=== PATIENT | female | born 1935 | race Caucasian/White ===

== ENCOUNTER → 2016-10-20 | Outpatient (CLI) | payer OTHER ==
[~2016-10-20] MED LIST: ASPEC81 PO; CALC500C70 PO; CALCTAB5 PO; CHOL20007 PO; CZR25 PO; DILT120C99 PO; DLCSR120 PO; FLUT1AER5 INH; IBAN150T PO; LOSA1TAB PO; METH-589 PO; MGNO400 PO; NEPA0.6D OPL; NRV/5 PO; OMEG10007 PO; PRED1SUS OPL; PRT40 PO; QVRINH40 INH; VITAMIN D PO
== END | disposition home or self-care (01) ==
LOC: C.MAMM 10:50
PROVIDERS: ATTEND Internal Medicine
DX: M81.0 Age-related osteoporosis without current pathological fracture (principal); M85.851 Other specified disorders of bone density and structure, right thigh; M85.852 Other specified disorders of bone density and structure, left thigh

== ENCOUNTER → 2016-12-10 | Outpatient (CLI) | payer OTHER ==
[2016-12-10 12:28] LABS: BASO % 1.1 %; BASO ABS # 0.04 K/uL (0-0.2); COMPLETE YES; EOS % 2.5 %; HEMATOCRIT 40.1 % (37-47); LYMPH % 33.9 %; LYMPH ABS # 1.24 K/uL (1.2-3.4); MEAN CELL VOLUME 98.5 fL (80-100); MEAN CORPUSCULAR HEMOGLOBIN 31.9 pg (25-34); MEAN CORPUSCULAR HGB CONC 32.4 g/dl (32-36); MEAN PLATELET VOLUME 11.1 fL (7.4-10.4); MONO % 8.2 %; NEUT % 54.3 %; PLATELET COUNT 187 K/uL (130-400); RED BLOOD COUNT 4.07 M/uL (4.2-5.4); WHITE BLOOD COUNT 3.66 K/uL (4.8-10.8)
[2016-12-10 12:43] LABS: BLOOD UREA NITROGEN 22 mg/dl (7-18); CALCIUM 9.9 mg/dl (8.5-10.1); CARBON DIOXIDE 31 mmol/L (21-32); CHLORIDE 106 mmol/L (98-107); CHOLESTEROL 183 mg/dl (0-200); GLUCOSE 88 mg/dl (70-99); MAGNESIUM 2.2 mg/dl (1.8-2.4); POTASSIUM 4.4 mmol/L (3.5-5.1); SODIUM 142 mmol/L (136-145)
[2016-12-10 12:55] LABS: CHOLESTEROL/HDL RATIO 1.7; HDL CHOLESTEROL 110 mg/dl; LDL CHOLESTEROL CALCULATED 64 mg/dl; TRIGLYCERIDES 47 mg/dl (0-150); VERY LOW DENSITY LIPOPROT CALC 9 mg/dl
== END | disposition home or self-care (01) ==
LOC: C.LAB1850 10:18
PROVIDERS: ATTEND Internal Medicine
DX: E05.90 Thyrotoxicosis, unspecified without thyrotoxic crisis or storm (principal); E83.42 Hypomagnesemia; D72.819 Decreased white blood cell count, unspecified; I10 Essential (primary) hypertension; I48.91 Unspecified atrial fibrillation

== ENCOUNTER → 2017-01-21 | Outpatient (CLI) | payer OTHER ==
--- NOTE | 2017-01-21 15:47 | MAMMOGRAPHY REPORT ---
BILATERAL DIGITAL SCREENING MAMMOGRAM WITH CAD: 01/21/2017 CLINICAL HISTORY: Routine screening. Patient has no complaints. TECHNIQUE: Bilateral CC and MLO views were obtained. Current study was also evaluated with a Comput er Aided Detection (CAD) system. COMPARISON: Comparison is made to exams dated: 01/18/2016 mammogram, 01/16/2015 mammogram, 01/13/2014 mammogram, 01/12/2013 mammogram, 01/01/2012 mammogram, and 12/31/2010 mammogram - [facility]. BREAST COMPOSITION: The tissue of both breasts is heterogeneously dense, which may obscure small ma sses. FINDINGS: There are mild to moderate vascular calcifications in the breasts. A few scattered benign round and rim calcifications. No suspicious mass, architectural distortion or cluster of microcalc ifications is seen. IMPRESSION: ACR BI-RADS CATEGORY 1: NEGATIVE There is no mammographic evidence of malignancy. A 1 year screening mammogram is recommended. The p atient will receive written notification of the results. Approximately 10% of breast cancers are not detected with mammography. A negative mammographic repor t should not delay biopsy if a clinically suggestive mass is present. Johanna Chatman M.D. ay/:01/21/2017 13:49:34 Baby Stroller Rental Clerk: Eleanor PUGH(R)(M), [facility] letter sent: Normal 1/2 BI-RADS Code: ACR BI-RADS Category 1: Negative
== END | disposition home or self-care (01) ==
LOC: C.MAMM 11:47
PROVIDERS: ATTEND Internal Medicine
DX: Z12.31 Encounter for screening mammogram for malignant neoplasm of breast (principal)

== ENCOUNTER → 2017-02-16 | Day surgery (SDC) | payer OTHER ==
[2017-02-09 14:06] VITALS: Ht 172.7 cm; Wt 65.0 kg
[~2017-02-16] VITALS: Ht 172.7 cm; Wt 65.0 kg
[~2017-02-16] MED LIST changes: +500ML BSS 0.3ML EPI 1:1000PF IRRIG ONE; +ACETAMINOPHEN 325 MG TAB PO PRN; +AMVISC PLUS 0.8ML SYRINGE INT OCU ONE; +ATROPINE SULFATE 0.1 MG/ML 5ML SYR IV PRN; +BRIMONIDINE TART 0.2% OP SOLN PER DROP CHARGE ONE; +BSS FLUSH ONE; -CALCTAB5 PO; -CHOL20007 PO; -CZR25 PO; -DLCSR120 PO; +ENDOCOAT 0.85ML SYRINGE INT OCU ONE; +EpHEDrine SULFATE INJ 50 MG/ML AMP IV PRN; +EpINEphrine INJ 1MG/ML AMP 1 MG/ML AMP ONE; +LACTATED RINGER'S 1000ML 500 ML IV SCH; +LIDOCAINE 4% OP SOLN DROP CHARGE ONE; +LIDOCAINE 4% OP SOLN DROP CHARGE OPL SCH; +LIDOCAINE HCL 1% MPF 2 ML VIAL ONE; -MGNO400 PO; +MIDAZOLAM HCL 1 MG/ML 2ML VIAL ONE; +MOXIFLOXACIN OPH SOLN PER DROP CHARGE ONE; +MOXIFLOXACIN OPH SOLN PER DROP CHARGE OPL SCH; -NRV/5 PO; +POVIDONE-IODINE OP SOLN 30 ML BTL ONE; +PROPARACAINE 0.5% OP SOLN PER DROP CHARGE OPL SCH; +PROPARACAINE HCL 0.5% OP SOLN 15 ML BTL OPL ONE; -PRT40 PO; -QVRINH40 INH; +TOBRAMYCIN/DEXAMETHASONE OPH OINT PER APPLN CHARGE ONE
[2017-02-16] MEDS: PHENYLEPHRINE HCL 2.5% OP SOLN PER DROP CHARGE OPL SCH ×2 (09:20→09:25)
[2017-02-16] MEDS: TROPICAMIDE 1% OP SOLN PER DROP CHARGE OPL SCH ×2 (09:21→09:26)
[2017-02-16] MEDS: CYCLOPENTOLATE HCL 1% OP SOLN PER DROP CHARGE OPL SCH ×2 (09:22→09:27)
[2017-02-16] MEDS: KETOROLAC 0.5% OP SOLN PER DROP CHARGE OPL SCH ×2 (09:23→09:28)
--- NOTE | 2017-02-16 09:40 | History & Physical Bridge - [place] ---
H&P Re-Evaluation Bridge Note: I have examined the patient, reviewed the History & Physical and in the interval since the performance of the History & Physical I have noted the following changes of clinical significance: No changes noted
--- NOTE | 2017-02-16 10:44 | Discharge Instructions-SurgCtr ---
Discharge Instructions Date of Service Feb 16, 2017. Visit Reason for Visit: Cataract Left Eye Discharge Discharge Diagnosis / Problem: cataract left eye Discharge Goals Goal(s): Improve function Activity Recommendations Activity Limitations: per Instructions/Follow-up section Lifting Limitations: no more than 5 pounds Anesthesia . Post Anesthesia Instructions: If you have had General Anesthesia or IV Sedation: * Do not drive today. * Resume driving when surgeon permits. * Do not make important decisions or sign legal documents today. * Call surgeon for: 1. Temperature elevations greater than 101 degrees F. 2. Uncontrollable pain. 3. Excessive bleeding. 4. Persistent nausea and vomiting. 5. Medication intolerance (nausea, vomiting or rash). * For nausea and vomiting use only clear liquids such as: tea, soda, bouillon until nausea subsides, then gradually increase diet as tolerated. * If you have any concerns or questions, call your surgeon's office. If physician is unavailable and it is an emergency, call 911 or go to the nearest emergency room. . Instructions / Follow-Up Instructions / Follow-Up ACTIVITY RECOMMENDATIONS: * Light activities * You may walk outside or watch television, No Reading today. * No bending over or heavy lifting * Mild irritation and blurred vision are common for the first few days, redness around the white part of the eye is common. MEDICATIONS: Resume previous medications unless instructed otherwise by your surgeon. Eye drops (today and tomorrow): Polytrim - one drop in operative eye every 2 hours while awake Prednisolone 1% - one drop in operative eye every 2 hours while awake Ilevro - one drop operative eye 1 times daily SPECIAL CARE INSTRUCTIONS: * If any problems or concerns, please call Dr. Miller's office at . * Keep plastic shield taped over eye to sleep at night. * Keep plastic shield taped over eye except to administer eye drops. * Keep plastic shield on until office visit the following day. FOLLOW UP VISIT: Follow-up with Dr. Miller in the [place] office as scheduled. If not already scheduled, please call the office at . Diet Recommendations Home Diet: resume previous diet Procedures Procedures Performed: Left Cataract Phacoemulsification With Intraocular Lens Implant; Toric Lens Pending Studies Studies pending at discharge: no Medical Emergencies . Who to Call and When: Medical Emergencies: If at any time you feel your situation is an emergency, please call 911 immediately. . Non-Emergent Contact Non-Emergency issues call your: Financial Reporting Advisor . . "Provider Documentation" section prepared by Bryson Miller. .
--- NOTE | 2017-02-16 10:44 | [facility] Post Operative Brief Note ---
Immediate Operative Summary Operative Date Feb 16, 2017. Pre-Operative Diagnosis Left Eye Cataract Post-Operative Diagnosis Same Procedure(s) Performed Left Cataract Phacoemulsification With Intraocular Lens Implant; Toric Lens Surgeon Dr Miller Stereo Equipment Installer Surgeon(s) None Estimated Blood Loss 0ml Findings cataract left eye Specimens None Complication(s) None Disposition Recovery Room / PACU
[2017-02-16 10:45] VITALS: TEMP 36.7
--- NOTE | 2017-02-16 11:08 | OPERATIVE REPORT ---
DATE OF OPERATION: 02/16/2017 PREOPERATIVE DIAGNOSIS: Cataract and astigmatism, left eye. POSTOPERATIVE DIAGNOSIS: Same. PROCEDURE PERFORMED: Phacoemulsification cataract extraction with Toric intraocular lens placement with the use of femtosecond laser, left eye. SURGEON: Dr. Miller. COMPLICATIONS: None. ESTIMATED BLOOD LOSS: None. ANESTHESIA: Local with sedation. OPERATION AND FINDINGS: BEGIN OF OPERATIVE REPORT: After informed consent was obtained in the holding area, the patient was first taken to the femtosecond laser room. The patient's left eye was docked with the laser and the laser was used to make the primary incision as well as the capsulorrhexis and prechop of the lens in the left eye. Once this was completed, the patient was taken to the operating room where cardiac monitoring leads and oxygen by nasal cannula was administered by anesthesia. Gentle IV sedation was given, the patient's left eye was prepped and draped in usual sterile fashion. A wire lid speculum was placed in the left eye and the operating microscope swung into position. Using 0.12 forceps and a supersharp blade, a paracentesis port was made at the 5 o'clock position of patient's left eye. 1% nonpreserved lidocaine was injected into the anterior chamber for anesthesia. EndoCoat was then injected into the anterior chamber. The primary incision was attempted to be entered using a Matthew spatula but was unable to so a 2.2 mm keratome blade was used to enter the primary incision at the 3 o'clock position in the patient's left eye. Amvisc was then injected underneath the EndoCoat in a soft shell fashion and the free floating capsulorrhexis cap was removed with the Utrata forceps. BSS and hydrodissection cannula was then used to hydrodissect the lens nucleus away from the capsular bag. The phacoemulsification handpiece was then used in a stop and chop fashion to remove the lens nucleus. Irrigation aspiration handpiece was then used to remove the residual cortical material. The eye was then filled with Amvisc and an NIHARIKA [id number] 18.0 Diopter intraocular lens was injected into the capsular bag. The primary incision was then hydrated and the irrigation-aspiration handpiece was used to remove the viscoelastic material from the eye. At the conclusion of viscoelastic removal, the lens was aligned with previously made markings on the corneal surface in the preop along with the 177 degree axis of the patient's left eye. The wounds were noted to be watertight. The wire lid speculum was removed from the eye. Polytrim, brimonidine and TobraDex ointment were placed on the eye and the eye was shielded. The patient tolerated the procedure well and was taken to recovery area in stable condition. I attest to the content of the Intraoperative Record and any orders documented therein. Any exception s are noted below.
--- NOTE | 2017-02-16 11:08 | Anesthesia Progress Nt - [facility] ---
Anesthesia Post Op Note Date & Time Feb 16, 2017 at 11:08 Vital Signs Pain Intensity: 0 Vital Signs Past 12 Hours Date Time Temp Pulse Resp B/P (MAP) Pulse Ox O2 Delivery O2 Flow Rate FiO2 02/16/17 10:45 36.7 56 16 152/67 (95) 98 Room Air 02/16/17 10:12 62 16 157/74 96 Room Air 02/16/17 10:10 67 16 167/71 96 Room Air 02/16/17 09:12 37.1 59 20 143/76 (98) 97 Room Air Notes Mental Status: alert / awake / arousable, participated in evaluation Pt Amnestic to Procedure: Yes Nausea / Vomiting: adequately controlled Pain: adequately controlled Airway Patency, RR, SpO2: stable & adequate BP & HR: stable & adequate Hydration State: stable & adequate Anesthetic Complications: no major complications apparent
[2017-02-16 11:09] VITALS: BP 136/64; PULSE 55; O2SAT 95
== END | disposition home or self-care (01) ==
LOC: X.SURG 08:28
PROVIDERS: ATTEND Ophthalmology
DX: H26.9 Unspecified cataract (principal); H52.202 Unspecified astigmatism, left eye; J45.909 Unspecified asthma, uncomplicated; I10 Essential (primary) hypertension; Z88.2 Allergy status to sulfonamides; Z88.5 Allergy status to narcotic agent; Z90.89 Acquired absence of other organs

== ENCOUNTER → 2017-03-12 | Outpatient (CLI) | payer OTHER ==
[~2017-03-12] MED LIST changes: -500ML BSS 0.3ML EPI 1:1000PF IRRIG ONE; -ACETAMINOPHEN 325 MG TAB PO PRN; -AMVISC PLUS 0.8ML SYRINGE INT OCU ONE; -ATROPINE SULFATE 0.1 MG/ML 5ML SYR IV PRN; -BRIMONIDINE TART 0.2% OP SOLN PER DROP CHARGE ONE; -BSS FLUSH ONE; -ENDOCOAT 0.85ML SYRINGE INT OCU ONE; -EpHEDrine SULFATE INJ 50 MG/ML AMP IV PRN; -EpINEphrine INJ 1MG/ML AMP 1 MG/ML AMP ONE; -LACTATED RINGER'S 1000ML 500 ML IV SCH; -LIDOCAINE 4% OP SOLN DROP CHARGE ONE; -LIDOCAINE 4% OP SOLN DROP CHARGE OPL SCH; -LIDOCAINE HCL 1% MPF 2 ML VIAL ONE; -MIDAZOLAM HCL 1 MG/ML 2ML VIAL ONE; -MOXIFLOXACIN OPH SOLN PER DROP CHARGE ONE; -MOXIFLOXACIN OPH SOLN PER DROP CHARGE OPL SCH; -POVIDONE-IODINE OP SOLN 30 ML BTL ONE; -PROPARACAINE 0.5% OP SOLN PER DROP CHARGE OPL SCH; -PROPARACAINE HCL 0.5% OP SOLN 15 ML BTL OPL ONE; -TOBRAMYCIN/DEXAMETHASONE OPH OINT PER APPLN CHARGE ONE
[2017-03-12 15:09] LABS: THYROID STIMULATING HORMONE 1.33 uIu/ml (0.300-4.500)
== END | disposition home or self-care (01) ==
LOC: C.LAB1850 13:23
PROVIDERS: ATTEND Physician Assistant
DX: E05.90 Thyrotoxicosis, unspecified without thyrotoxic crisis or storm (principal)

== ENCOUNTER → 2017-03-23 | Day surgery (SDC) | payer OTHER ==
[2017-03-02 13:21] VITALS: Ht 172.7 cm; Wt 65.0 kg
[~2017-03-23] VITALS: Ht 172.7 cm; Wt 65.0 kg
[~2017-03-23] MED LIST changes: +500ML BSS 0.3ML EPI 1:1000PF IRRIG ONE; +ACETAMINOPHEN 325 MG TAB PO PRN; +AMVISC PLUS 0.8ML SYRINGE INT OCU ONE; +ATROPINE SULFATE 0.1 MG/ML 5ML SYR IV PRN; +BRIMONIDINE TART 0.2% OP SOLN PER DROP CHARGE ONE; +BSS FLUSH ONE; +ENDOCOAT 0.85ML SYRINGE INT OCU ONE; +EpHEDrine SULFATE INJ 50 MG/ML AMP IV PRN; +EpINEphrine INJ 1MG/ML AMP 1 MG/ML AMP ONE; +LACTATED RINGER'S 1000ML 500 ML IV SCH; +LIDOCAINE 4% OP SOLN DROP CHARGE ONE; +LIDOCAINE 4% OP SOLN DROP CHARGE OPR SCH; +LIDOCAINE HCL 1% MPF 2 ML VIAL ONE; +MIDAZOLAM HCL 1 MG/ML 2ML VIAL ONE; +MOXIFLOXACIN OPH SOLN PER DROP CHARGE ONE; +ONDANSETRON INJ 2 MG/ML 2 ML VIAL IV PRN; +POVIDONE-IODINE OP SOLN 30 ML BTL ONE; +PROPARACAINE 0.5% OP SOLN PER DROP CHARGE OPR SCH; +PROPARACAINE HCL 0.5% OP SOLN 15 ML BTL OPR ONE; +TOBRAMYCIN/DEXAMETHASONE OPH OINT PER APPLN CHARGE ONE
[2017-03-23] MEDS: PHENYLEPHRINE HCL 2.5% OP SOLN PER DROP CHARGE OPR SCH ×2 (10:09→10:18)
[2017-03-23] MEDS: TROPICAMIDE 1% OP SOLN PER DROP CHARGE OPR SCH ×2 (10:10→10:25)
[2017-03-23] MEDS: CYCLOPENTOLATE HCL 1% OP SOLN PER DROP CHARGE OPR SCH ×2 (10:12→10:27)
[2017-03-23] MEDS: KETOROLAC 0.5% OP SOLN PER DROP CHARGE OPR SCH ×2 (10:13→10:29)
[2017-03-23] MEDS: TRIMETHOPRIM/POLYMYXIN B OPR SCH ×2 (10:16→10:31)
[2017-03-23 11:31] VITALS: TEMP 36.6
--- NOTE | 2017-03-23 11:31 | Discharge Instructions-SurgCtr ---
Discharge Instructions Date of Service Mar 23, 2017. Visit Reason for Visit: Right Cataract Discharge Discharge Diagnosis / Problem: cataract right eye Discharge Goals Goal(s): Improve function Activity Recommendations Activity Limitations: per Instructions/Follow-up section Lifting Limitations: no more than 5 pounds Anesthesia . Post Anesthesia Instructions: If you have had General Anesthesia or IV Sedation: * Do not drive today. * Resume driving when surgeon permits. * Do not make important decisions or sign legal documents today. * Call surgeon for: 1. Temperature elevations greater than 101 degrees F. 2. Uncontrollable pain. 3. Excessive bleeding. 4. Persistent nausea and vomiting. 5. Medication intolerance (nausea, vomiting or rash). * For nausea and vomiting use only clear liquids such as: tea, soda, bouillon until nausea subsides, then gradually increase diet as tolerated. * If you have any concerns or questions, call your surgeon's office. If physician is unavailable and it is an emergency, call 911 or go to the nearest emergency room. . Instructions / Follow-Up Instructions / Follow-Up ACTIVITY RECOMMENDATIONS: * Light activities * You may walk outside, read, watch television. * Mild irritation and blurred vision are common for the first few days, redness around the white part of the eye is common. MEDICATIONS: Resume previous medications unless instructed otherwise by your surgeon. Eye drops (today and tomorrow): Polytrim - one drop in operative eye every 2 hours while awake Prednisolone 1% - one drop in operative eye every 2 hours while awake Ilevro - one drop operative eye 1 times daily SPECIAL CARE INSTRUCTIONS: * If any problems or concerns, please call Dr. Miller's office at . * Keep plastic shield taped over eye to sleep at night. * Keep plastic shield taped over eye except to administer eye drops. * Keep plastic shield on until office visit the following day. FOLLOW UP VISIT: Follow-up with Dr. Miller in the [place] office as scheduled. If not already scheduled, please call the office at . Diet Recommendations Home Diet: resume previous diet Procedures Procedures Performed: Right Eye Cataract Phacoemulsification With Intraocular Lens Implant Pending Studies Studies pending at discharge: no Medical Emergencies . Who to Call and When: Medical Emergencies: If at any time you feel your situation is an emergency, please call 911 immediately. . Non-Emergent Contact Non-Emergency issues call your: Line Department Supervisor . . "Provider Documentation" section prepared by Bryson Miller. .
--- NOTE | 2017-03-23 11:32 | [facility] Post Operative Brief Note ---
Immediate Operative Summary Operative Date Mar 23, 2017. Pre-Operative Diagnosis Right Eye Cataract Post-Operative Diagnosis Same Procedure(s) Performed Right Eye Cataract Phacoemulsification With Intraocular Lens Implant Surgeon Dr. Miller Salvage Mend Worker Surgeon(s) None Estimated Blood Loss None Findings cataract right eye Specimens None Drains none Anesthesia local with sedation Complication(s) None Disposition Recovery Room / PACU
[2017-03-23 11:52] VITALS: BP 128/61; PULSE 58; O2SAT 98
--- NOTE | 2017-03-23 11:54 | Anesthesiology Progress Note ---
Anesthesia Post Op Note Date & Time Mar 23, 2017 at 11:54 Vital Signs Pain Intensity: 0 Vital Signs Past 12 Hours Date Time Temp Pulse Resp B/P (MAP) Pulse Ox O2 Delivery O2 Flow Rate FiO2 03/23/17 11:31 36.6 56 18 145/65 (91) 99 Room Air 03/23/17 11:02 66 18 149/66 94 03/23/17 10:58 63 18 157/66 96 03/23/17 09:44 37.0 62 18 138/71 (93) 97 Room Air Notes Mental Status: alert / awake / arousable, participated in evaluation Pt Amnestic to Procedure: Yes Nausea / Vomiting: adequately controlled Pain: adequately controlled Airway Patency, RR, SpO2: stable & adequate BP & HR: stable & adequate Hydration State: stable & adequate Anesthetic Complications: no major complications apparent
--- NOTE | 2017-03-23 13:54 | OPERATIVE REPORT ---
DATE OF OPERATION: 03/23/2017 PREOPERATIVE DIAGNOSES: Cataract and astigmatism, right eye. POSTOPERATIVE DIAGNOSES: Same. PROCEDURE PERFORMED: Phacoemulsification cataract extraction with Toric intraocular lens placement with the use of femtosecond laser, right eye. COMPLICATIONS: None. ESTIMATED BLOOD LOSS: None. ANESTHESIA: Local with sedation. DESCRIPTION OF PROCEDURE: After an informed consent was obtained in the holding area, the patient was taken to the femtosecond laser room, where the right eye was docked with a laser. Femtosecond laser was used to make the primary incision at the 9 o'clock position of the patient's right eye as well as make the capsulorrhexis and prechop of the lens. Once this was completed, the patient was taken back to the operating room, where cardiac monitoring leads and oxygen by nasal cannula was administered by anesthesia. Gentle IV sedation was given and the patient's right eye was prepped and draped in the usual sterile fashion. A wire lid speculum was placed in the right eye and the operating microscope swung into position. Using 0.12 forceps and a supersharp blade, a paracentesis port was made at the 11 o'clock position of the patient's right eye. 1% nonpreserved lidocaine was then injected into the anterior chamber for anesthesia. EndoCoat was then injected into the anterior chamber. The primary incision was then entered using a Matthew spatula and Amvisc was injected underneath the EndoCoat. A free floating capsulorrhexis cap was then removed from the eye and BSS on hydrodissection cannula was used to hydrodissect the lens nucleus away from the capsular bag. The phacoemulsification handpiece was then used in a stop and chop fashion to remove the lens nucleus. The irrigation-aspiration handpiece was then used to remove the residual cortical material. The eye was then filled with Amvisc and an NIHARIKA [id number], 18.0 Diopter intraocular lens was injected into the capsular bag. The primary incision was then hydrated and the irrigation-aspiration handpiece was used to remove the viscoelastic material from the eye. At the conclusion of viscoelastic material removal, the lens was left aligned along the 5-degree axis of the patient's right eye with markings made in preop. The wounds were noted to be watertight. The wire lid speculum was removed from the eye. Vigamox, brimonidine and TobraDex ointment were placed on the eye and the eye was shielded. The patient tolerated the procedure well and was taken to recovery area in stable condition. I attest to the content of the Intraoperative Record and any orders documented therein. Any exceptions are noted below. MTDD
== END | disposition home or self-care (01) ==
LOC: X.SURG 09:28
PROVIDERS: ATTEND Ophthalmology
DX: H25.11 Age-related nuclear cataract, right eye (principal); H52.201 Unspecified astigmatism, right eye; I10 Essential (primary) hypertension; J45.909 Unspecified asthma, uncomplicated; I48.91 Unspecified atrial fibrillation; Z90.89 Acquired absence of other organs; Z90.710 Acquired absence of both cervix and uterus; E03.9 Hypothyroidism, unspecified; Z98.42 Cataract extraction status, left eye; K21.9 Gastro-esophageal reflux disease without esophagitis; Z87.442 Personal history of urinary calculi

== ENCOUNTER → 2017-04-22 | Outpatient (CLI) | payer OTHER ==
[~2017-04-22] MED LIST changes: -500ML BSS 0.3ML EPI 1:1000PF IRRIG ONE; -ACETAMINOPHEN 325 MG TAB PO PRN; -AMVISC PLUS 0.8ML SYRINGE INT OCU ONE; -ATROPINE SULFATE 0.1 MG/ML 5ML SYR IV PRN; -BRIMONIDINE TART 0.2% OP SOLN PER DROP CHARGE ONE; -BSS FLUSH ONE; -ENDOCOAT 0.85ML SYRINGE INT OCU ONE; -EpHEDrine SULFATE INJ 50 MG/ML AMP IV PRN; -EpINEphrine INJ 1MG/ML AMP 1 MG/ML AMP ONE; -LACTATED RINGER'S 1000ML 500 ML IV SCH; -LIDOCAINE 4% OP SOLN DROP CHARGE ONE; -LIDOCAINE 4% OP SOLN DROP CHARGE OPR SCH; -LIDOCAINE HCL 1% MPF 2 ML VIAL ONE; -MIDAZOLAM HCL 1 MG/ML 2ML VIAL ONE; -MOXIFLOXACIN OPH SOLN PER DROP CHARGE ONE; -ONDANSETRON INJ 2 MG/ML 2 ML VIAL IV PRN; -POVIDONE-IODINE OP SOLN 30 ML BTL ONE; -PROPARACAINE 0.5% OP SOLN PER DROP CHARGE OPR SCH; -PROPARACAINE HCL 0.5% OP SOLN 15 ML BTL OPR ONE; -TOBRAMYCIN/DEXAMETHASONE OPH OINT PER APPLN CHARGE ONE
[2017-04-22 14:07] LABS: THYROID STIMULATING HORMONE 1.72 uIu/ml (0.300-4.500)
== END | disposition home or self-care (01) ==
LOC: C.LAB1850 12:12
PROVIDERS: ATTEND Physician Assistant
DX: E05.90 Thyrotoxicosis, unspecified without thyrotoxic crisis or storm (principal)

== ENCOUNTER → 2017-05-22 | Outpatient (CLI) | payer OTHER ==
[2017-05-22 17:00] LABS: THYROID STIMULATING HORMONE 2.09 uIu/ml (0.300-4.500)
== END | disposition home or self-care (01) ==
LOC: C.LAB1850 14:53
PROVIDERS: ATTEND Physician Assistant
DX: E05.90 Thyrotoxicosis, unspecified without thyrotoxic crisis or storm (principal)

== ENCOUNTER → 2017-08-28 | Outpatient (CLI) | payer OTHER ==
[~2017-08-28] MED LIST changes: +APIX1TAB3 PO; +ASPI-461 PO; +CHOL1000 PO; +CZR50 PO
[2017-08-28 09:35] LABS: HEMATOCRIT 41.1 % (37-47); HEMOGLOBIN 13.4 g/dL (12.0-16.0); MEAN CELL VOLUME 97.4 fL (80-100); MEAN CORPUSCULAR HEMOGLOBIN 31.8 pg (25-34); MEAN CORPUSCULAR HGB CONC 32.6 g/dl (32-36); MEAN PLATELET VOLUME 11.1 fL (7.4-10.4); PLATELET COUNT 173 K/uL (130-400); RED CELL DISTRIBUTION WIDTH CV 13.2 % (11.5-14.5); RED CELL DISTRIBUTION WIDTH SD 46.8 fL (36.4-46.3); WHITE BLOOD COUNT 3.29 K/uL (4.8-10.8)
[2017-08-28 10:29] LABS: BLOOD UREA NITROGEN 25 mg/dl (7-18); CALCIUM 9.7 mg/dl (8.5-10.1); CARBON DIOXIDE 30 mmol/L (21-32); CREATININE 0.98 mg/dl (0.60-1.20); GLUCOSE 84 mg/dl (70-99); SODIUM 140 mmol/L (136-145)
== END | disposition home or self-care (01) ==
LOC: C.LAB1850 08:37
PROVIDERS: ATTEND Physician Assistant
DX: J45.909 Unspecified asthma, uncomplicated (principal); I10 Essential (primary) hypertension; E05.90 Thyrotoxicosis, unspecified without thyrotoxic crisis or storm

== ENCOUNTER → 2017-09-07 | Outpatient (CLI) | payer OTHER ==
[~2017-09-07] MED LIST changes: -APIX1TAB3 PO; -ASPI-461 PO; -CHOL1000 PO; -CZR50 PO
--- NOTE | 2017-09-07 15:04 | DIAGNOSTIC IMAGING REPORT ---
TWO VIEW CHEST CLINICAL HISTORY: Cough. Asthma. FINDINGS: PA and lateral chest radiographs are compared to study dated 08/19/2015. Correlation is made with chest CT dated 10/25/2007. The heart is top normal for projection and there is atherosclerotic calcification of the thoracic aorta. The lungs appear hyperinflated and hyperlucent with flattening the diaphragm suggesting obstructive physiology. Chronic interstitial thickening is similar to previous. No airspace consolidation or pleural effusion is identified. There is no pneumothorax. The skeletal structures are osteopenic. The bony thorax appears intact. IMPRESSION: Findings suggest obstructive physiology. No airspace consolidation or pleural effusion is identified. Electronically signed by: Shaji Marcos M.D. 09/07/2017 3:02 PM Dictated Date/Time: 09/07/2017 3:01 PM
== END | disposition home or self-care (01) ==
LOC: C.RAD1850 14:52
PROVIDERS: ATTEND Internal Medicine Pulmonary Disease
DX: J45.909 Unspecified asthma, uncomplicated (principal); R05 Cough

== ENCOUNTER → 2017-11-05 | Outpatient (CLI) | payer OTHER | END | disposition home or self-care (01) | LOC: C.LAB1850 12:40 | PROVIDERS: ATTEND Physician Assistant | DX: E05.90 Thyrotoxicosis, unspecified without thyrotoxic crisis or storm (principal) ==

== ENCOUNTER → 2018-03-18 | Outpatient (CLI) | payer OTHER ==
[~2018-03-18] MED LIST changes: +APIX1TAB3 PO; -ASPEC81 PO; +ASPI-461 PO; +CHOL1000 PO; +CZR50 PO; -IBAN150T PO; -LOSA1TAB PO; -NEPA0.6D OPL; -PRED1SUS OPL; -VITAMIN D PO
== END | disposition home or self-care (01) ==
LOC: C.LAB1850 12:57
PROVIDERS: ATTEND Internal Medicine
DX: R39.9 Unspecified symptoms and signs involving the genitourinary system (principal)

== ENCOUNTER → 2018-04-07 | Outpatient (CLI) | payer OTHER | END | disposition home or self-care (01) | LOC: C.LAB1850 11:49 | PROVIDERS: ATTEND Internal Medicine | DX: R39.9 Unspecified symptoms and signs involving the genitourinary system (principal) ==

== ENCOUNTER → 2018-04-14 | Outpatient (CLI) | payer OTHER | END | disposition home or self-care (01) | LOC: C.LABSPEC 16:01 | PROVIDERS: ATTEND Obstetrics & Gynecology | DX: R39.9 Unspecified symptoms and signs involving the genitourinary system (principal) ==

== ENCOUNTER 2019-10-18 15:30 | Observation (INO) ==
[2019-10-18] MEDS ORDERED: fentaNYL citrate 100 MCG/2 ML VIAL IV PRN (16:34)
[2019-10-18] MEDS ORDERED: ONDANSETRON INJ 2 MG/ML 2 ML VIAL IV STA (16:34)
[2019-10-18] MEDS ORDERED: SODIUM CHLORIDE 0.9% 1000ML 1,000 ML IV SCH (16:45)
--- NOTE | 2019-10-18 16:45 | Emergency Department Note ---
Entered by Constantino Thurman acting as a scribe for Rocky Piedra DO History of Present Illness General Chief complaint: Vomiting Stated complaint: VOMITING Time Seen by Provider: 10/18/19 16:27 Source: patient History of Present Illness Onset (ago): day(s) (today) Location: abdomen Pain Consistency: + other (worsening) Maximum Pain Intensity: 0 Quality: + other (nausea) Associated symptoms: + other (Positive for left flank pain, weakness, headache, and occasional SOB. Negative for back pain, abdominal pain, and dark/bloody urine.) The patient is an 83 year old female who presents to the emergency department with complaints of worsening nausea beginning today. The patient states that she had an episode of left flank pain a week ago. She notes that her pain lasted several hours before resolving. She thought that she was passing a kidney stone at that time. She reports that she became weak after her flank pain resolved, and she states that she has had intermittent nausea since. She notes that her nausea worsened today. She reports that she developed a headache last night. The patient states that her headache is in the front of her head. She also complains of occasional SOB. She denies any back pain, abdominal pain, and dark/bloody urine. Home Medications Home Medications Medication Instructions Recorded Confirmed Type calcium carbonate-vitamin D3 1 tab PO QAM 11/08/18 10/18/19 History [Calcium 500 + D] cholecalciferol (vitamin D3) 125 5,000 units PO DAILY 07/29/19 10/18/19 History mcg (5,000 unit) capsule apixaban 5 mg tablet 5 mg PO BID #180 tab 08/04/19 10/18/19 Rx losartan 50 mg tablet 50 mg PO QAM #90 tab 08/04/19 10/18/19 Rx diltiazem HCl 240 mg 240 mg PO DAILY #90 cap 10/10/19 10/18/19 Rx capsule,extended release 24 hr fluticasone propionate [Flovent 1 inh INHALATION DAILY 10/18/19 10/18/19 History Diskus] methimazole 5 mg PO QPM 10/18/19 10/18/19 History mirabegron [Myrbetriq] 25 mg PO QAM 10/18/19 10/18/19 History tiotropium bromide [Spiriva 2 puff INHALATION DAILY 10/18/19 10/18/19 History Respimat] Allergies Allergy/AdvReac Type Severity Reaction Status Date / Time amoxicillin Allergy Unknown RASH Verified 10/18/19 17:35 clavulanic acid Allergy Unknown RASH Verified 10/18/19 17:35 clindamycin Allergy Unknown RASH Verified 10/18/19 17:35 Sulfa (Sulfonamide Allergy Unknown RASH Verified 10/18/19 17:35 Antibiotics) cephalexin Allergy Verified 10/18/19 17:35 doxycycline Allergy Verified 10/18/19 17:35 meperidine [From Demerol] Allergy Verified 10/18/19 17:35 benzonatate AdvReac Unknown SICK IN Verified 10/18/19 17:35 STOMACH codeine AdvReac Unknown SICK IN Verified 10/18/19 17:35 STOMACH levofloxacin AdvReac Unknown SICK IN Verified 10/18/19 17:35 STOMACH Past Med/Surg History Social History Preferred Language: Armenian Communication Ability: Effective Garment Examiner Required: No Beliefs That Will Affect Care: None Current Living Situation: Spouse Feels Safe at Home: Yes Smoking Status: Never smoker Second Hand Exposure: No ; Hx Alcohol Use: No Hx Substance Use: No Review of Systems See HPI for pertinent positives & negatives. and A total of 10 systems reviewed and were otherwise negative Physical Exam Vital Signs Vital Signs - 24 hr 10/18/19 15:38 10/18/19 16:58 10/18/19 17:00 Temperature 36.9 C Temperature Source Oral Pulse Rate 64 Pulse Rate from SpO2 Sensor Respiratory Rate 16 18 Respiratory Effort / Characteristics Non-Labored Respiratory Depth Normal Blood Pressure 189/94 H 173/98 H Blood Pressure Mean 125 128 Pulse Oximetry 97 97 Oxygen Delivery Method Room Air Sepsis Recent Fever Within 48 Hours No Sepsis New/Unexplained Change in Mental Status No Sepsis Action Taken by Nursing No Action Required 10/18/19 17:14 10/18/19 17:20 10/18/19 17:30 Temperature Temperature Source Pulse Rate 65 57 L 66 Pulse Rate from SpO2 Sensor 63 57 L 66 Respiratory Rate 20 20 25 H Respiratory Effort / Characteristics Respiratory Depth Blood Pressure 189/79 H Blood Pressure Mean 99 Pulse Oximetry 97 96 98 Oxygen Delivery Method Sepsis Recent Fever Within 48 Hours Sepsis New/Unexplained Change in Mental Status Sepsis Action Taken by Nursing 10/18/19 17:53 10/18/19 18:00 10/18/19 18:32 Temperature Temperature Source Pulse Rate 101 H 75 73 Pulse Rate from SpO2 Sensor 74 Respiratory Rate 19 20 20 Respiratory Effort / Characteristics Respiratory Depth Blood Pressure 185/85 H Blood Pressure Mean 119 Pulse Oximetry 97 Oxygen Delivery Method Sepsis Recent Fever Within 48 Hours Sepsis New/Unexplained Change in Mental Status Sepsis Action Taken by Nursing 10/18/19 18:40 10/18/19 18:50 10/18/19 18:51 Temperature 37.1 C Temperature Source Pulse Rate 72 71 Pulse Rate from SpO2 Sensor 73 71 Respiratory Rate 24 29 H Respiratory Effort / Characteristics Respiratory Depth Blood Pressure Blood Pressure Mean Pulse Oximetry 93 99 Oxygen Delivery Method Sepsis Recent Fever Within 48 Hours Sepsis New/Unexplained Change in Mental Status Sepsis Action Taken by Nursing 10/18/19 19:00 Temperature Temperature Source Pulse Rate 73 Pulse Rate from SpO2 Sensor 73 Respiratory Rate 21 Respiratory Effort / Characteristics Respiratory Depth Blood Pressure 172/70 H Blood Pressure Mean 116 Pulse Oximetry 100 Oxygen Delivery Method Sepsis Recent Fever Within 48 Hours Sepsis New/Unexplained Change in Mental Status Sepsis Action Taken by Nursing GENERAL: The patient is awake and alert. She is somewhat anxious appearing. EYES: The conjunctivae are clear. The pupils are round and reactive. EARS, NOSE, MOUTH AND THROAT: The nose is without any evidence of any deformity. Mucous membranes are moist. Tongue is midline. NECK: The neck is nontender and supple. RESPIRATORY: Normal respiratory effort is noted there is no evidence of wheezing rhonchi or rales CARDIOVASCULAR: Regular rate and rhythm noted there no murmurs rubs or gallops normal S1 normal S2. GASTROINTESTINAL: The abdomen is soft. The abdomen is mildly distended. There is right lower quadrant tenderness to palpation but no guarding or rigidity. BACK: No midline tenderness or or step-off noted range of motion in flexion extension as well as rotation no signs of muscle spasm noted MUSCULOSKELETAL/EXTREMITIES: There is no evidence of gross deformity full range of motion is noted in the hips and shoulders. SKIN: There is no obvious evidence of any rash. There are no petechiae, pallor or cyanosis noted. NEUROLOGIC: Patient is awake alert and oriented x3 strength is symmetric patellar reflexes are 2+ bilaterally Course Course 162: The patient was evaluated in room B12. A complete history and physical exam was performed. 1903: Dr. Muñoz - Hospitalist, [facility] [place], was notified of the patient. Administered Medications Fentanyl Citrate (Fentanyl Citrate) 50 mcg IV Q15M PRN PRN Reason: Pain Stop: 11/01/19 16:33 Last Admin: 10/18/19 17:07 Dose: 50 mcg Documented by: [id number] Ioversol (Optiray 320 100ml) 92 ml IV ONCE PRN PRN Reason: Interaction Checking Stop: 10/22/19 17:40 Last Admin: 10/18/19 17:41 Dose: 92 ml Documented by: [id number] Discontinued Medications Sodium Chloride (Nss 1000ml) 1,000 mls @ 999 mls/hr IV .Q1H1M CHRISTIAN Stop: 10/18/19 17:45 Last Infusion: 10/18/19 18:28 Dose: 0 mls/hr Documented by: [id number] Admin: 10/18/19 17:07 Dose: 999 mls/hr Documented by: [id number] Promethazine HCl (Phenergan) 6.25 mg in 50.25 mls @ 201 mls/hr IV NOW STA Stop: 10/18/19 18:08 Last Infusion: 10/18/19 18:52 Dose: 0 mls/hr Documented by: [id number] Admin: 10/18/19 18:31 Dose: 201 mls/hr Documented by: [id number] Ondansetron HCl (Zofran) 4 mg IV NOW STA Stop: 10/18/19 16:35 Last Admin: 10/18/19 17:07 Dose: 4 mg Documented by: [id number] Medical Decision Making Differential Diagnosis Differential diagnosis: Etiologies such as gastroenteritis, food borne illness, infections, appendicitis, diverticulitis, inflammatory bowel disease, obstruction, GI bleed, biliary pathology, cardiac process, intracranial process, as well as others were entertained. Medical Records Attestation: I reviewed the patient's medical records. Home Medications Current Medication List: was personally reviewed by me Laboratory Data Attestation: I reviewed the patient's lab results. Result diagrams: 10/18/19 16:28 10/18/19 16:28 Lab Results 10/18/19 10/18/19 10/18/19 Range/Units 16:28 16:28 16:28 WBC 4.72 L (4.8-10.8) K/uL RBC 4.21 (4.2-5.4) M/uL Hgb 13.4 (12.0-16.0) g/dL Hct 40.8 (37-47) % MCV 96.9 (80-100) fL MCH 31.8 (25-34) pg MCHC 32.8 (32-36) g/dL RDW Std Deviation 44.2 (36.4-46.3) fL RDW Coeff of Jaja 12.5 (11.5-14.5) % Plt Count 286 (130-400) K/uL MPV 10.3 (7.4-10.4) fL Immature Gran % (Auto) 0.2 % Neut % (Auto) 72.7 % Lymph % (Auto) 19.7 % [place] % (Auto) 5.7 % Eos % (Auto) 1.1 % Baso % (Auto) 0.6 % Immature Gran # (Auto) 0.01 (0.00-0.02) K/uL Neut # (Auto) 3.43 (1.4-6.5) K/uL Lymph # (Auto) 0.93 L (1.2-3.4) K/uL [place] # (Auto) 0.27 (0.11-0.59) K/uL Eos # (Auto) 0.05 (0-0.5) K/uL Baso # (Auto) 0.03 (0-0.2) K/uL PT 10.8 (9.0-12.0) Seconds INR 1.1 (0.9-1.1) APTT 28.2 (21.0-31.0) Seconds PTT Ratio 1.0 Sodium 137 (136-145) mmol/L Potassium 4.1 (3.5-5.1) mmol/L Chloride 104 (98-107) mmol/L Carbon Dioxide 31 (21-32) mmol/L Anion Gap 2.0 L (3-11) BUN 19 H (7-18) mg/dl Creatinine 0.97 (0.6-1.2) mg/dl Est Cr Clr Drug Dosing 44.3 ml/min Est GFR ( Amer) 62.6 Est GFR (Non-Af Amer) 54.0 BUN/Creatinine Ratio 19.3 (10-20) Glucose 100 H (70-99) mg/dl Calcium 10.5 H (8.5-10.1) mg/dl Total Bilirubin 0.3 (0.2-1) mg/dl AST 11 L (15-37) U/L ALT 13 (12-78) U/L Alkaline Phosphatase 80 (45-117) U/L Troponin I < 0.015 (0-0.045) ng/ml Total Protein 8.1 (6.4-8.2) gm/dl Albumin 3.5 (3.4-5.0) gm/dl Globulin 4.6 H (2.5-4.0) gm/dl Albumin/Globulin Ratio 0.8 L (0.9-2) Lipase 126 (73-393) U/L Urine Color Urine Appearance (Clear) Urine pH (4.5-7.5) Ur Specific [place] (1.000-1.030) Urine Protein (Negative) Urine Glucose (UA) (Negative) Urine Ketones (Negative) Urine Blood (Negative) Urine Nitrite (Negative) Urine Bilirubin (Negative) Urine Urobilinogen (Negative) Ur Leukocyte Esterase (Negative) Urine WBC (Auto) (0-5) /hpf Urine RBC (Auto) (0-4) /hpf U Hyaline Cast (Auto) (0-5) /lpf U Epithel Cells (Auto) (0-5) /lpf Urine Bacteria (Auto) (Negative) 10/18/19 Range/Units 18:16 WBC (4.8-10.8) K/uL RBC (4.2-5.4) M/uL Hgb (12.0-16.0) g/dL Hct (37-47) % MCV (80-100) fL MCH (25-34) pg MCHC (32-36) g/dL RDW Std Deviation (36.4-46.3) fL RDW Coeff of Jaja (11.5-14.5) % Plt Count (130-400) K/uL MPV (7.4-10.4) fL Immature Gran % (Auto) % Neut % (Auto) % Lymph % (Auto) % [place] % (Auto) % Eos % (Auto) % Baso % (Auto) % Immature Gran # (Auto) (0.00-0.02) K/uL Neut # (Auto) (1.4-6.5) K/uL Lymph # (Auto) (1.2-3.4) K/uL [place] # (Auto) (0.11-0.59) K/uL Eos # (Auto) (0-0.5) K/uL Baso # (Auto) (0-0.2) K/uL PT (9.0-12.0) Seconds INR (0.9-1.1) APTT (21.0-31.0) Seconds PTT Ratio Sodium (136-145) mmol/L Potassium (3.5-5.1) mmol/L Chloride (98-107) mmol/L Carbon Dioxide (21-32) mmol/L Anion Gap (3-11) BUN (7-18) mg/dl Creatinine (0.6-1.2) mg/dl Est Cr Clr Drug Dosing ml/min Est GFR ( Amer) Est GFR (Non-Af Amer) BUN/Creatinine Ratio (10-20) Glucose (70-99) mg/dl Calcium (8.5-10.1) mg/dl Total Bilirubin (0.2-1) mg/dl AST (15-37) U/L ALT (12-78) U/L Alkaline Phosphatase (45-117) U/L Troponin I (0-0.045) ng/ml Total Protein (6.4-8.2) gm/dl Albumin (3.4-5.0) gm/dl Globulin (2.5-4.0) gm/dl Albumin/Globulin Ratio (0.9-2) Lipase (73-393) U/L Urine Color Yellow Urine Appearance Turbid A (Clear) Urine pH >= 9.0 H (4.5-7.5) Ur Specific [place] 1.021 (1.000-1.030) Urine Protein Negative (Negative) Urine Glucose (UA) Negative (Negative) Urine Ketones Negative (Negative) Urine Blood Negative (Negative) Urine Nitrite Negative (Negative) Urine Bilirubin Negative (Negative) Urine Urobilinogen Negative (Negative) Ur Leukocyte Esterase Negative (Negative) Urine WBC (Auto) 5-10 H (0-5) /hpf Urine RBC (Auto) 0-4 (0-4) /hpf U Hyaline Cast (Auto) 1-5 (0-5) /lpf U Epithel Cells (Auto) 5-10 H (0-5) /lpf Urine Bacteria (Auto) 1+ H (Negative) Imaging Data Radiologist's Impression: Radiology results as stated below per my review and the radiologist's interpretation: CT abd pelvis IV con only FINDINGS: Lower chest: There are dependent atelectatic changes. Liver: The contrast-enhanced liver is normal in size, contour, and attenuation. There is no intrahepatic biliary ductal dilatation. The hepatic veins and portal veins are patent. Gallbladder: Unremarkable. Spleen: Normal in size and attenuation. Pancreas: Unremarkable. Adrenal glands: Unremarkable. Kidneys: There are bilateral renal cysts. There is no hydronephrosis. There is extrarenal pelvis on the right. Bowel: There are no transition zones to indicate bowel obstruction. There is colonic diverticulosis. There is no evidence of acute diverticulitis. By history the appendix is surgically absent. There is mild fecal retention. Peritoneum: There is no intraperitoneal free air or abdominal ascites. There is a tiny fat-containing umbilical hernia. Vasculature: The abdominal aorta is normal in course and caliber. Adenopathy: None. Pelvic viscera: The uterus is surgically absent. There are several small bladder calculi. The previously identified 2.3 cm bladder calculus is no longer visualized Skeletal structures: No destructive osseous lesions are seen. IMPRESSION: 1. No acute intra-abdominal or pelvic findings 2. No evidence of bowel obstruction. No evidence of free air 3. Diverticulosis. No evidence of acute diverticulitis. 4. Nonvisualization of the previously identified 2.3 cm bladder calculus. Several small bladder calculi are currently visualized. ACT 112: Negative or not required by law. Electronically signed by: Chandu Zimmerman M.D. 10/18/2019 6:[address] head/brain wo con FINDINGS: No intra or extra-axial mass lesions are visualized. There is no CT evidence of acute cortical infarction. There is no evidence of midline shift. There is no acute hemorrhage. No calvarial fractures are visualized. There are patchy white matter hypodensities likely on a small vessel basis. There are cerebral and cerebellar atrophic changes. There is a lacunar infarct within the right centrum semiovale. There is no evidence of pathologic ventricular dilatation. There is no evidence of acute sinusitis IMPRESSION: 1. No acute intracranial findings 2. Progressive white matter disease likely on a small vessel ischemic basis. ACT 112: Negative or not required by law. Electronically signed by: Chandu Zimmerman M.D. 10/18/2019 5:51 PM XR chest 1V portable FINDINGS: Lung volumes are normal. Lungs are clear. There is no pneumothorax or pleural effusion. Cardiac size is normal. Mediastinal contours are normal. There is no evidence for pulmonary edema. IMPRESSION: No acute cardiopulmonary findings. ACT 112: Negative or not required by law. Electronically signed by: Kevin Mejía M.D. 10/18/2019 4:46 PM ECG Data Attestation: I personally reviewed and interpreted this ECG as follows: Indication: + vomiting Rate (beats per minute): 64 Rhythm: + normal sinus ECG Intervals/blocks: + Right Bundle branch block ECG Findings: no PACs and no PVCs Comparison ECG Date: from (02/26/18) Change: the following changes noted (Compared to prior, sinus rhythm has replaced Afib.) Blood Pressure Blood Pressure Findings: Elevated blood pressure Blood Pressure Disposition: further management by hospitalist MDM Narrative An order was placed for continuous cardiac monitoring. The monitor shows a rate of [] with [] rhythm. The patient is an 83-year-old female who presented to the emergency department for an evaluation of nausea and vomiting. The patient had some abdominal discomfort but no physical exam findings consistent with an acute surgical abdomen. She also had a headache but no meningismus or focal neurologic deficits. This was difficult to determine if this was neurologic versus GI nausea and vomiting but further laboratory and radiographic studies were obtained. I discussed the patient's laboratory and radiographic studies with her. She was treated with IV fluids and IV antiemetics. She still continued to have severe nausea and vomiting. For this reason I discussed her case with the on-call [facility] hospitalist group. They have agreed to evaluate the patient in the emergency department for further management and disposition. Impression & Plan Vomiting, Headache Discharge Plan Visit Data Chief Complaint: Vomiting Stated Complaint: VOMITING ED Provider: Rocky Piedra Discharge Problem: Vomiting, Headache Patient Disposition: Being Evaluated by Hospitalist Forms Stand Alone Forms: My [facility] [employer] Prescriptions Prescriptions: No Action Eliquis 5 mg tablet 5 mg PO BID Qty: 180 RF: 3 losartan 50 mg tablet 50 mg PO QAM Qty: 90 RF: 3 cholecalciferol (vitamin D3) 5,000 unit capsule 5,000 units PO DAILY RF: 0 diltiazem HCl 240 mg capsule,extended release 24hr 240 mg PO DAILY Qty: 90 RF: 3 calcium carbonate-vitamin D3 [Calcium 500 + D] 500 mg(1,250mg) -200 unit Tablet 1 tab PO QAM RF: 0 Flovent Diskus 100 mcg/actuation blister with device 1 inh INHALATION DAILY RF: 0 Spiriva Respimat 2.5 mcg/actuation mist 2 puff INHALATION DAILY RF: 0 methimazole 5 mg tablet 5 mg PO QPM RF: 0 Myrbetriq 25 mg tablet extended release 24 hr 25 mg PO QAM RF: 0 Referrals Referrals: Rocky Norton MD [Primary Care Provider] - Discharge Problem: Vomiting Qualifiers: Vomiting type: unspecified Vomiting Intractability: intractable Nausea presence: with nausea Qualified Code(s): R11.2 - Nausea with vomiting, unspecified Headache Qualifiers: Headache type: unspecified Headache chronicity pattern: acute headache Intractability: intractable Qualified Code(s): R51 - Headache The scribe's documentation has been prepared under my direction and personally reviewed by me in its entirety. I confirm that the note above accurately reflects all work, treatment, procedures, and medical decision making performed by me.
[2019-10-18 16:46] LABS: Basophils # (auto) 0.03 K/uL (0-0.2); Basophils % (auto) 0.6 %; Eosinophils # (auto) 0.05 K/uL (0-0.5); Eosinophils % (auto) 1.1 %; Hematocrit (blood only) 40.8 % (37-47); Hemoglobin 13.4 g/dL (12.0-16.0); Immature Granulocytes # (auto) 0.01 K/uL (0.00-0.02); Immature Granulocytes % (auto) 0.2 %; Lymphocytes # (auto) 0.93 K/uL (1.2-3.4); Lymphocytes % (auto) 19.7 %; Mean Corpuscular Hemoglobin 31.8 pg (25-34); Mean Corpuscular Hgb Conc 32.8 g/dL (32-36); Mean Corpuscular Volume 96.9 fL (80-100); Mean Platelet Volume 10.3 fL (7.4-10.4); Monocytes # (auto) 0.27 K/uL (0.11-0.59); Monocytes % (auto) 5.7 %; Neutrophils # (auto) 3.43 K/uL (1.4-6.5); Neutrophils % (auto) 72.7 %; Platelet Count 286 K/uL (130-400); RDW Coefficient of Variation 12.5 % (11.5-14.5); RDW Standard Deviation 44.2 fL (36.4-46.3); Red Blood Count 4.21 M/uL (4.2-5.4); White Blood Count 4.72 K/uL (4.8-10.8)
--- NOTE | 2019-10-18 16:48 | XRay Report ---
XR chest 1V portable CLINICAL HISTORY: Shortness of breath. COMPARISON STUDY: Chest radiograph February 25, 2018. FINDINGS: Lung volumes are normal. Lungs are clear. There is no pneumothorax or pleural effusion. Car diac size is normal. Mediastinal contours are normal. There is no evidence for pulmonary edema. IMPRESSION: No acute cardiopulmonary findings. ACT 112: Negative or not required by law. Electronically signed by: Kevin Mejía M.D. 10/18/2019 4:46 PM
[2019-10-18 17:01] LABS: INR 1.1 (0.9-1.1); Partial Thromboplastin Time 28.2 Seconds (21.0-31.0); Prothrombin Time 10.8 Seconds (9.0-12.0)
[2019-10-18 17:05] LABS: Alanine Aminotransferase 13 U/L (12-78); Albumin Level 3.5 gm/dl (3.4-5.0); Aspartate Aminotransferase 11 U/L (15-37); BUN Creatinine Ratio 19.3 (10-20); Blood Urea Nitrogen 19 mg/dl (7-18); Calcium 10.5 mg/dl (8.5-10.1); Carbon Dioxide 31 mmol/L (21-32); Chloride 104 mmol/L (98-107); Creatinine Clr Calc Pharmacy 44.3 ml/min; Est GFR (African American) 62.6; Glucose 100 mg/dl (70-99); Lipase 126 U/L (73-393); Potassium 4.1 mmol/L (3.5-5.1); Sodium 137 mmol/L (136-145)
[2019-10-18 17:09] LABS: Albumin Globulin Ratio 0.8 (0.9-2); Alkaline Phosphatase 80 U/L (45-117); Bilirubin,Total 0.3 mg/dl (0.2-1); Globulin 4.6 gm/dl (2.5-4.0); Total Protein 8.1 gm/dl (6.4-8.2); Troponin I < 0.015 ng/ml (0-0.045)
[2019-10-18] MEDS ORDERED: IOVERSOL 100ml IV PRN (17:41)
--- NOTE | 2019-10-18 17:52 | CT Scan Report ---
CT head/brain wo con CLINICAL HISTORY: BARBOUR and vomiting COMPARISON STUDY: 05/28/2009 TECHNIQUE: Axial CT of the brain is performed from the vertex to the skull base. IV contrast was not administered for this examination. A dose lowering technique was utilized adhering to the principles of ALARA. CT DOSE: 893.79 mGy.cm FINDINGS: No intra or extra-axial mass lesions are visualized. There is no CT evidence of acute cortical infarc tion. There is no evidence of midline shift. There is no acute hemorrhage. No calvarial fractures ar e visualized. There are patchy white matter hypodensities likely on a small vessel basis. There are cerebral and ce rebellar atrophic changes. There is a lacunar infarct within the right centrum semiovale. There is no evidence of pathologic ventricular dilatation. There is no evidence of acute sinusitis IMPRESSION: 1. No acute intracranial findings 2. Progressive white matter disease likely on a small vessel ischemic basis. ACT 112: Negative or not required by law. Electronically signed by: Chandu Zimmerman M.D. 10/18/2019 5:51 PM
[2019-10-18] MEDS ORDERED: PROMETHAZINE 6.25 MG/50.25 ML BAG IV STA (17:54)
--- NOTE | 2019-10-18 18:08 | CT Scan Report ---
CT abd pelvis IV con only CLINICAL HISTORY: Vomiting COMPARISON STUDY: October 14, 2018 TECHNIQUE: The patient was scanned in a dynamic helical fashion during intravenous administration of 92 cc of Optiray 320. A dose lowering technique was utilized adhering to the principles of ALARA. CT DOSE: FINDINGS: Lower chest: There are dependent atelectatic changes. Liver: The contrast-enhanced liver is normal in size, contour, and attenuation. There is no intrahepa tic biliary ductal dilatation. The hepatic veins and portal veins are patent. Gallbladder: Unremarkable. Spleen: Normal in size and attenuation. Pancreas: Unremarkable. Adrenal glands: Unremarkable. Kidneys: There are bilateral renal cysts. There is no hydronephrosis. There is extrarenal pelvis on t he right. Bowel: There are no transition zones to indicate bowel obstruction. There is colonic diverticulosis. There is no evidence of acute diverticulitis. By history the appendix is surgically absent. There is mild fecal retention. Peritoneum: There is no intraperitoneal free air or abdominal ascites. There is a tiny fat-containing umbilical hernia. Vasculature: The abdominal aorta is normal in course and caliber. Adenopathy: None. Pelvic viscera: The uterus is surgically absent. There are several small bladder calculi. The previou sly identified 2.3 cm bladder calculus is no longer visualized Skeletal structures: No destructive osseous lesions are seen. IMPRESSION: 1. No acute intra-abdominal or pelvic findings 2. No evidence of bowel obstruction. No evidence of free air 3. Diverticulosis. No evidence of acute diverticulitis. 4. Nonvisualization of the previously identified 2.3 cm bladder calculus. Several small bladder calcu li are currently visualized. ACT 112: Negative or not required by law. Electronically signed by: Chandu Zimmerman M.D. 10/18/2019 6:06 PM
[2019-10-18 18:30] LABS: Appearance Urine Turbid (Clear); Bacteria Urine Automated 1+ (Negative); Bilirubin Urine Negative (Negative); Blood Urine Negative (Negative); Color Urine Yellow; Glucose Urine UA Negative (Negative); Ketones Urine Negative (Negative); Leukocyte Esterase Urine Negative (Negative); Nitrite Urine Negative (Negative); Protein Urine Negative (Negative); RBC Urine Automated 0-4 /hpf (0-4); Specific Gravity Urine 1.021 (1.000-1.030); Urobilinogen Urine Negative (Negative); pH Urine >= 9.0 (4.5-7.5)
[2019-10-18] MEDS ORDERED: PROCHLORPERAZINE 10 MG in SYRINGE 8 ML IV PRN (21:07)
[2019-10-18] MEDS ORDERED: HYDROmorphone INJ 0.5 MG/0.5 ML SYR IV PRN (21:11)
--- NOTE | 2019-10-18 22:20 | Ultrasound Report ---
EXAMINATION: RENAL ULTRASOUND CLINICAL HISTORY: nausea and vomiting, hx of kidney stones COMPARISON STUDY: CT scan dated 10/18/2019 FINDINGS: The right kidney measures 11.4 cm. The left kidney measures 10.1 cm. There is no hydroneph rosis. There is an extrarenal pelvis on the right. There are bilateral renal cysts The bladder was not well distended. The right ureteral jet was not visualized. IMPRESSION : 1. Bilateral renal cysts 2. Nonvisualization of the right ureteral jet 3. Extrarenal pelvis on the right. No evidence of significant hydronephrosis. ACT 112: Negative or not required by law. Electronically signed by: Chandu Zimmerman M.D. 10/18/2019 10:19 PM
[2019-10-18] MEDS ORDERED: ONDANSETRON INJ 2 MG/ML 2 ML VIAL IV PRN (22:27)
[2019-10-18] MEDS: NSS + 20MEQ KCL 20 MEQ/1,000 ML BAG IV SCH (23:32)
--- NOTE | 2019-10-19 01:46 | History & Physical Report ---
Date of Service October 19, 2019 The patient was seen and admitted on 10/18/2019 Assessment & Plan (1) Kidney stones: History of kidney stones requiring lithotripsy- Patient reports that he had that she has had stones being trapped in the bladder, which have caused similar symptoms that she has now, and were only able to be relieved by lithotripsy. CT of abdomen pelvis does not reveal any stones. Renal ultrasound is primarily significant for lack of visualization of right ureteral jet. Urinalysis looks abnormal, and patient will be placed on antibiotics empirically due to her history. Follow urine culture and sensitivities Present on Admission?: Yes (2) Vomiting: Patient's primary symptoms of headache, nausea, vomiting and generalized weakness have been her usual presentation when she is had kidney stones in the past. No overt stones have been found during assessment as noted above. If patient symptoms are persistent, may need additional testing above and beyond CT abdomen pelvis and renal ultrasound. It is possible patient symptoms may just be related to early sepsis from urinary tract infection alone. Present on Admission?: Yes (3) Headache: See above Present on Admission?: Yes (4) HTN (hypertension): Hypertension/paroxysmal atrial fibrillation- Continue diltiazem 2040 mg every morning. Hold losartan 50 mg p.o. every morning. Hold apixaban for now in the event of possible procedure in the a.m. Present on Admission?: Yes (5) Paroxysmal atrial fibrillation: Present on Admission?: Yes (6) Hyperthyroidism: Continue methimazole 5 mg p.o. every evening Present on Admission?: Yes (7) Bladder spasm: Continue Myrbetriq 25 mg p.o. every morning Present on Admission?: Yes (8) Asthma: Continue Spiriva 1 inhalation daily Present on Admission?: Yes History of Present Illness Chief Complaint: The patient presents to the emergency department with left flank pain, generalized weakness, headache and intermittent shortness of breath. Primary Care Provider: Rocky Norton MD The patient is a 83-year-old female with a past medical history including paroxysmal atrial fibrillation, osteopenia, multiple thyroid nodules, multiple pulmonary nodules, hyperthyroidism, history of small bowel obstruction, goiter, asthma, hypertension, renal calculi, and migraine. She presents to the emergency department with the acute onset of left flank pain, weakness, headache and intermittent shortness of breath. She reports that when she is had these symptoms in the past, is been associated with passage of a ureteral calculus into the bladder, where she had to undergo lithotripsy to dissolve the bladder stone. Allergies Allergy/AdvReac Type Severity Reaction Status Date / Time amoxicillin Allergy Unknown RASH Verified 10/18/19 17:35 clavulanic acid Allergy Unknown RASH Verified 10/18/19 17:35 clindamycin Allergy Unknown RASH Verified 10/18/19 17:35 Sulfa (Sulfonamide Allergy Unknown RASH Verified 10/18/19 17:35 Antibiotics) cephalexin Allergy Verified 10/18/19 17:35 doxycycline Allergy Verified 10/18/19 17:35 meperidine [From Demerol] Allergy Verified 10/18/19 17:35 benzonatate AdvReac Unknown SICK IN Verified 10/18/19 17:35 STOMACH codeine AdvReac Unknown SICK IN Verified 10/18/19 17:35 STOMACH levofloxacin AdvReac Unknown SICK IN Verified 10/18/19 17:35 STOMACH Home Medications Home Medications Medication Instructions Recorded Confirmed Type calcium carbonate-vitamin D3 1 tab PO QAM 11/08/18 10/18/19 History [Calcium 500 + D] cholecalciferol (vitamin D3) 125 5,000 units PO DAILY 07/29/19 10/18/19 History mcg (5,000 unit) capsule apixaban 5 mg tablet 5 mg PO BID #180 tab 08/04/19 10/18/19 Rx losartan 50 mg tablet 50 mg PO QAM #90 tab 08/04/19 10/18/19 Rx diltiazem HCl 240 mg 240 mg PO DAILY #90 cap 10/10/19 10/18/19 Rx capsule,extended release 24 hr fluticasone propionate [Flovent 1 inh INHALATION DAILY 10/18/19 10/18/19 History Diskus] methimazole 5 mg PO QPM 10/18/19 10/18/19 History mirabegron [Myrbetriq] 25 mg PO QAM 10/18/19 10/18/19 History tiotropium bromide [Spiriva 2 puff INHALATION DAILY 10/18/19 10/18/19 History Respimat] Past Med/Surg History Medical History Asthma WELL CONTROLLED Atrial fibrillation Initially presented in 2014 post-op with SBO. Spontaneously converted and anticoagulation d/c'd after 4 months. Reoccurred 02/2018, now on Eliquis. Bladder spasm Hypertension Hyperthyroidism On Methimazole, most recent TSH/T4 1.73/1/07 (WNL). Kidney stones Surgical History H/O dilation and curettage H/O exploratory laparotomy History of appendectomy History of bowel resection JUL 2015, BOWEL OBSTRUCTION History of cataract surgery B/L History of colonoscopy History of hysterectomy History of tonsillectomy Family History Mother Breast cancer Unknown Hypertension Brother Cardiac disorder Social History Preferred Language: Croatian Communication Ability: Effective Environmental Programs Manager Required: No Beliefs That Will Affect Care: None marital status: Current Living Situation: Spouse Other Information That Helps Us Care for You: No Feels Safe at Home: Yes Safety Concerns: Feels Safe At This Time Smoking Status: Never smoker Do You Dip or Chew Tobacco: No ; Second Hand Exposure: No ; Hx Alcohol Use: No Hx Substance Use: No Review of Systems Review of Systems: The patient denies chest pain, palpitations, shortness of breath, dyspnea on exertion, cough, lower extremity swelling, sore throat, fevers, chills, sweats, diarrhea , constipation, blood in urine or stool, dysuria, urinary frequency or urgency, lightheadedness, dizziness, focal weakness, numbness or tingling in arms or legs, generalized arthralgias or myalgias, neck pain, or night sweats. The review of systems is otherwise negative other than for that already noted above, and at least 10 systems have been reviewed. Physical Exam Physical Exam: The patient is awake, alert and oriented 3, normocephalic and atraumatic, lying in bed and in no acute distress. HEENT--PERRL, EOMI, mucous membranes and oropharynx dry. Neck--supple. No JVD. No bruits. Thyroid normal, trachea midline, no adenopathy. Heart--normal S1 and S2. No murmurs, rubs or gallops. Lungs--clear bilaterally, no respiratory distress, no accessory muscle use. Abdomen--normal bowel sounds and soft. Nontender. Nondistended. Extremities--no cyanosis or clubbing. No edema. There are good distal pulses b/l. Dermatologic--normal skin turgor, normal color, no abnormal lymph nodes, no rash. Neurologic--cranial nerves II through XII grossly intact. Rheumatologic--normal range of motion. Psychiatric--normal affect. Results & Data Vital Signs (Past 12 Hours) Vital Signs Temp Pulse Pulse Resp BP BP Pulse Ox 10/18/19 22:29 98.4 F 59 L 20 162/71 H 95 10/18/19 21:30 63 25 H 146/71 H 96 10/18/19 21:00 58 L 23 150/67 H 99 10/18/19 20:30 70 21 146/77 H 100 10/18/19 20:20 61 21 99 10/18/19 20:00 66 19 149/69 H 100 10/18/19 19:39 60 20 175/71 H 100 10/18/19 19:00 73 21 172/70 H 100 10/18/19 18:51 98.8 F 10/18/19 18:50 71 29 H 99 10/18/19 18:40 72 24 93 10/18/19 18:32 73 20 97 10/18/19 18:00 75 20 185/85 H 10/18/19 17:53 101 H 19 10/18/19 17:30 66 25 H 189/79 H 98 10/18/19 17:20 57 L 20 96 10/18/19 17:14 65 20 97 10/18/19 17:00 18 173/98 H 10/18/19 16:58 97 10/18/19 15:38 98.4 F 64 16 189/94 H 97 Laboratory Results Laboratory Results WBC 4.72 K/uL (4.8-10.8) L 10/18/19 16:28 RBC 4.21 M/uL (4.2-5.4) 10/18/19 16:28 Hgb 13.4 g/dL (12.0-16.0) 10/18/19 16:28 Hct 40.8 % (37-47) 10/18/19 16:28 MCV 96.9 fL (80-100) 10/18/19 16:28 MCH 31.8 pg (25-34) 10/18/19 16: MCHC 32.8 g/dL (32-36) 10/18/19: RDW Std Deviation 44.2 fL (36.4-46.3) 10/18/19: RDW Coeff of Jaja 12.5 % (11.5-14.5) 10/18/19: Plt Count 286 K/uL (130-400) 10/18/19: MPV 10.3 fL (7.4-10.4) 10/18/19: Immature Gran % (Auto) 0.2 % 10/18/19: Neut % (Auto) 72.7 % 10/18/19: Lymph % (Auto) 19.7 % 10/18/19: [place] % (Auto) 5.7 % 10/18/19: Eos % (Auto) 1.1 % 10/18/19: Baso % (Auto) 0.6 % 10/18/19: Immature Gran # (Auto) 0.01 K/uL (0.00-0.02) 10/18/19: Neut # (Auto) 3.43 K/uL (1.4-6.5) 10/18/19: Lymph # (Auto) 0.93 K/uL (1.2-3.4) L 10/18/19: [place] # (Auto) 0.27 K/uL (0.11-0.59) 10/18/19: Eos # (Auto) 0.05 K/uL (0-0.5) 10/18/19: Baso # (Auto) 0.03 K/uL (0-0.2) 10/18/19: PT 10.8 Seconds (9.0-12.0) 10/18/19: INR 1.1 (0.9-1.1) 10/18/19: APTT 28.2 Seconds (21.0-31.0) 10/18/19: PTT Ratio 1.0 10/18/19: Sodium 137 mmol/L (136-145) 10/18/19: Potassium 4.1 mmol/L (3.5-5.1) 10/18/19 16: Chloride 104 mmol/L (98-107) 10/18/19 16: Carbon Dioxide 31 mmol/L (21-32) 10/18/19: Anion Gap 2.0 (3-11) L 10/18/19 16: BUN 19 mg/dl (7-18) H 10/18/19 16: Creatinine 0.97 mg/dl (0.6-1.2) 10/18/19: Est Cr Clr Drug Dosing 44.3 ml/min 10/18/19 16: Est GFR ( Amer) 62.6 10/18/19 16: Est GFR (Non-Af Amer) 54.0 10/18/19: BUN/Creatinine Ratio 19.3 (10-20) 10/18/19 16: Glucose 100 mg/dl (70-99) H 10/18/19: Calcium 10.5 mg/dl (8.5-10.1) H 10/18/19: Total Bilirubin 0.3 mg/dl (0.2-1) 10/18/19: AST 11 U/L (15-37) L 10/18/19: ALT 13 U/L (12-78) 10/18/19 16: Alkaline Phosphatase 80 U/L (45-117) 10/18/19 16: Troponin I < 0.015 ng/ml (0-0.045) 10/18/19: Total Protein 8.1 gm/dl (6.4-8.2) 10/18/19: Albumin 3.5 gm/dl (3.4-5.0) 10/18/19: Globulin 4.6 gm/dl (2.5-4.0) H 10/18/19: Albumin/Globulin Ratio 0.8 (0.9-2) L 10/18/19: Lipase 126 U/L (73-393) 10/18/19 16: Urine Color Yellow 10/18/19 18:16 Urine Appearance Turbid (Clear) A 10/18/19 18:16 Urine pH >= 9.0 (4.5-7.5) H 10/18/19 18:16 Ur Specific [place] 1.021 (1.000-1.030) 10/18/19 18:16 Urine Protein Negative (Negative) 10/18/19 18:16 Urine Glucose (UA) Negative (Negative) 10/18/19 18:16 Urine Ketones Negative (Negative) 10/18/19 18:16 Urine Blood Negative (Negative) 10/18/19 18:16 Urine Nitrite Negative (Negative) 10/18/19 18:16 Urine Bilirubin Negative (Negative) 10/18/19 18:16 Urine Urobilinogen Negative (Negative) 10/18/19 18:16 Ur Leukocyte Esterase Negative (Negative) 10/18/19 18:16 Urine WBC (Auto) 5-10 /hpf (0-5) H 10/18/19 18:16 Urine RBC (Auto) 0-4 /hpf (0-4) 10/18/19 18:16 U Hyaline Cast (Auto) 1-5 /lpf (0-5) 10/18/19 18:16 U Epithel Cells (Auto) 5-10 /lpf (0-5) H 10/18/19 18:16 Urine Bacteria (Auto) 1+ (Negative) H 10/18/19 18:16 Diagnostic Findings [place], [place] [phone] CT Scan Report Patient: ALLAN PÉREZ Date: 10/18/19 MR#: [id number]: [address] Acct ID:[id number]: [address] Date: 6City Zip: [place] [address] Age: 83Location: ED Sex: F Room/Bed: Att Phy:Diagnosis: VOMITING Kalyn Phy: Rocky Norton, MDService Date: 10/18/19 Fam Phy:Interpreting Phy: Chandu Zimmerman MD Admit Phy: Ordering Phy: Rocky Piedra, cc: ~ CT abd pelvis IV con only CLINICAL HISTORY: Vomiting COMPARISON STUDY: October 14, 2018 TECHNIQUE: The patient was scanned in a dynamic helical fashion during intravenous administration of 92 cc of Optiray 320. A dose lowering technique was utilized adhering to the principles of ALARA. CT DOSE: FINDINGS: Lower chest: There are dependent atelectatic changes. Liver: The contrast-enhanced liver is normal in size, contour, and attenuation. There is no intrahepatic biliary ductal dilatation. The hepatic veins and portal veins are patent. Gallbladder: Unremarkable. Spleen: Normal in size and attenuation. Pancreas: Unremarkable. Adrenal glands: Unremarkable. Kidneys: There are bilateral renal cysts. There is no hydronephrosis. There is extrarenal pelvis on the right. Bowel: There are no transition zones to indicate bowel obstruction. There is colonic diverticulosis. There is no evidence of acute diverticulitis. By history the appendix is surgically absent. There is mild fecal retention. Peritoneum: There is no intraperitoneal free air or abdominal ascites. There is a tiny fat-containing umbilical hernia. Vasculature: The abdominal aorta is normal in course and caliber. Adenopathy: None. Pelvic viscera: The uterus is surgically absent. There are several small bladder calculi. The previously identified 2.3 cm bladder calculus is no longer visualized Skeletal structures: No destructive osseous lesions are seen. IMPRESSION: 1. No acute intra-abdominal or pelvic findings 2. No evidence of bowel obstruction. No evidence of free air 3. Diverticulosis. No evidence of acute diverticulitis. 4. Nonvisualization of the previously identified 2.3 cm bladder calculus. Several small bladder calculi are currently visualized. ACT 112: Negative or not required by law. Electronically signed by: Chandu Zimmerman M.D. 10/18/2019 6:06 PM Dictated: 10/18/191756 Transcribed: 10/18/191756 [place], [place] [phone] CT Scan Report Patient: ALLAN PÉREZ Date: 10/18/19 MR#: [id number]: [address] Acct ID:[id number]: [address] [facility] Zip[facility] [place] [address] Age: 83Location: ED Sex: F Room/Bed: Att Phy:Diagnosis: VOMITING Kalyn Phy: Rocky Norton, MDService Date: 10/18/19 Fam Phy:Interpreting Phy: Chandu Zimmerman MD Admit Phy: Ordering Phy: Rocky Piedra, cc: ~ CT head/brain wo con CLINICAL HISTORY: BARB[place] and vomiting COMPARISON STUDY: 05/28/2009 TECHNIQUE: Axial CT of the brain is performed from the vertex to the skull base. IV contrast was not administered for this examination. A dose lowering technique was utilized adhering to the principles of ALARA. CT DOSE: 893.79 mGy.cm FINDINGS: No intra or extra-axial mass lesions are visualized. There is no CT evidence of acute cortical infarction. There is no evidence of midline shift. There is no acute hemorrhage. No calvarial fractures are visualized. There are patchy white matter hypodensities likely on a small vessel basis. There are cerebral and cerebellar atrophic changes. There is a lacunar infarct within the right centrum semiovale. There is no evidence of pathologic ventricular dilatation. There is no evidence of acute sinusitis IMPRESSION: 1. No acute intracranial findings 2. Progressive white matter disease likely on a small vessel ischemic basis. ACT 112: Negative or not required by law. Electronically signed by: Chandu Zimmerman M.D. 10/18/2019 5:51 PM Dictated: 10/18/19 1749 Transcribed: 10/18/191748 [place], [place] [phone] XRay Report Patient: ALLAN PÉREZ Date: 10/18/19 MR#: [id number]: [address] Acct ID:[id number]: [address] Date: 6City Zip: [place] [address] Age: 83Location: ED Sex: F Room/Bed: Att Phy:Diagnosis: VOMITING Kalyn Phy: Rocky Norton, MDService Date: 10/18/19 Fam Phy:Interpreting Phy: Kevin Mejía MD Admit Phy: Ordering Phy: Rocky Piedra DO cc: ~ XR chest 1V portable CLINICAL HISTORY: Shortness of breath. COMPARISON STUDY: Chest radiograph February 25, 2018. FINDINGS: Lung volumes are normal. Lungs are clear. There is no pneumothorax or pleural effusion. Cardiac size is normal. Mediastinal contours are normal. There is no evidence for pulmonary edema. IMPRESSION: No acute cardiopulmonary findings. ACT 112: Negative or not required by law. Electronically signed by: Kevin Mejía M.D. 10/18/2019 4:46 PM Dictated: 02/25/20 1646 Transcribed: 10/18/191645 [place], [place] [phone] Ultrasound Report Patient: ALLAN PÉREZ Date: 10/18/19 MR#: [id number]: [address] Acct ID:[id number]: [address] Date: 6[address] Zip: [place] [address] Age: 83Location: 2W Sex: F Room/Bed: [facility] Att Phy: Vince Muñoz M.D.Diagnosis: INRACTABLE NAUSEA AND VOMITING Kalyn Phy: Rocky Norton, MDService Date: 10/18/19 Fam Phy:Interpreting Phy: Chandu Zimmerman MD Admit Phy: Vince Muñoz M.D. Ordering Phy: Vince Muñoz M.D. cc: ~ EXAMINATION: RENAL ULTRASOUND CLINICAL HISTORY: nausea and vomiting, hx of kidney stones COMPARISON STUDY: CT scan dated 10/18/2019 FINDINGS: The right kidney measures 11.4 cm. The left kidney measures 10.1 cm. There is no hydronephrosis. There is an extrarenal pelvis on the right. There are bilateral renal cysts The bladder was not well distended. The right ureteral jet was not visualized. IMPRESSION : 1. Bilateral renal cysts 2. Nonvisualization of the right ureteral jet 3. Extrarenal pelvis on the right. No evidence of significant hydronephrosis. ACT 112: Negative or not required by law. Electronically signed by: Chandu Zimmerman M.D. 10/18/2019 10:19 PM Dictated: 10/18/192215 Transcribed: 10/18/192215 Code Status & VTE Plan Code Status Full code VTE Prophylaxis Plan VTE Prophylaxis will be ordered: Yes PG Care Time/CCT Total # of Minutes Spent Total Time Spent with Patient: Total time spent is greater than 50% in coordination of care (as documented) at patient's floor/unit and/or counseling patient: Coding Level of Care Code 08820 Initial Inpt Care Lvl 3 Diagnoses Kidney stones N20.0 Vomiting R11.2 Nausea presence: with nausea Vomiting Intractability: intractable Vomiting type: unspecified Headache R51 Headache chronicity pattern: acute headache Headache type: unspecified Intractability: intractable HTN (hypertension) I10 Paroxysmal atrial fibrillation I48.0 Hyperthyroidism E05.90 Bladder spasm N32.89 Asthma J45.909 (1) Headache Headache chronicity pattern: acute headache Headache type: unspecified Intractability: intractable Qualified Code(s): R51 - Headache (2) Vomiting Nausea presence: with nausea Vomiting Intractability: intractable Vomiting type: unspecified Qualified Code(s): R11.2 - Nausea with vomiting, unspecified
[2019-10-19 08:14] LABS: Basophils # (auto) 0.04 K/uL (0-0.2); Basophils % (auto) 0.9 %; Eosinophils # (auto) 0.07 K/uL (0-0.5); Eosinophils % (auto) 1.6 %; Hematocrit (blood only) 37.9 % (37-47); Hemoglobin 12.1 g/dL (12.0-16.0); Immature Granulocytes # (auto) 0.01 K/uL (0.00-0.02); Immature Granulocytes % (auto) 0.2 %; Lymphocytes # (auto) 1.35 K/uL (1.2-3.4); Lymphocytes % (auto) 31.3 %; Mean Corpuscular Hemoglobin 31.2 pg (25-34); Mean Corpuscular Hgb Conc 31.9 g/dL (32-36); Mean Corpuscular Volume 97.7 fL (80-100); Mean Platelet Volume 10.2 fL (7.4-10.4); Monocytes # (auto) 0.46 K/uL (0.11-0.59); Monocytes % (auto) 10.7 %; Neutrophils # (auto) 2.38 K/uL (1.4-6.5); Neutrophils % (auto) 55.3 %; Platelet Count 276 K/uL (130-400); RDW Coefficient of Variation 12.7 % (11.5-14.5); RDW Standard Deviation 44.7 fL (36.4-46.3); Red Blood Count 3.88 M/uL (4.2-5.4); White Blood Count 4.31 K/uL (4.8-10.8)
[2019-10-19 08:40] LABS: Albumin Level 2.9 gm/dl (3.4-5.0); Calcium 9.4 mg/dl (8.5-10.1); Creatinine Clr Calc Pharmacy 43.9 ml/min; Est GFR (African American) 61.8; Est GFR (Non-African American) 53.3; Potassium 4.5 mmol/L (3.5-5.1)
[2019-10-19 08:45] LABS: Albumin Globulin Ratio 0.8 (0.9-2); Bilirubin,Total 0.3 mg/dl (0.2-1); Globulin 3.8 gm/dl (2.5-4.0); Total Protein 6.7 gm/dl (6.4-8.2)
[2019-10-19] MEDS: NSS + 20MEQ KCL 20 MEQ/1,000 ML BAG IV SCH ×2 (08:45→19:30)
[2019-10-19] MEDS: FLUTICASONE FUROATE 100MCG 14 PUFFS/INHALER INH SCH (08:47)
[2019-10-19] MEDS: UMECLIDINIUM BROMIDE 62.5MCG/BLISTER 7 PUFFS/INHALER INH SCH (08:48)
[2019-10-19] MEDS: dilTIAZem HCL 240 MG CAPCR PO SCH ×2 (08:49→10:07)
[2019-10-19] MEDS: CHOLECALCIFEROL 1,000 UNITS 25 MCG TAB PO SCH ×2 (08:49→10:11)
[2019-10-19] MEDS: MIRABEGRON ER 25 MG TAB PO SCH ×2 (08:50→10:07)
[2019-10-19] MEDS: cefTRIAXone SODIUM 1,000 MG in DEXTROSE 5% 50 ML IV SCH (10:07)
--- NOTE | 2019-10-19 10:56 | Urology Consultation ---
Date of Consultation October 19, 2019 Assessment & Plan (1) Bladder stones: (2) Nausea: (3) Acute UTI: 83 year-old female patient with multiple comorbidities admitted with bladder stones, nausea/vomiting, and acute UTI. -Reviewed case with Dr. Tillman. -Symptoms likely from acute UTI, prelim urine culture positive for e.coli. -Follow urine culture sensitivity. -Patient with noted bladder stones on CT, has required cystolitholapaxy in past. -Check PVR - order placed. -Strain all urine. -No surgical intervention required from urologic standpoint - okay to advance diet. -Will arrange follow-up outpatient with our service for cystoscopy in the next 2-3 weeks and further discuss bladder stone management. -Recommend antibiotic coverage based on sensitivity until that appointment. -Discussed with patient, she is in agreement with plan. Thank you for allowing us to participate in the acute care of Mrs. Connors. Please reconsult us with additional questions, concerns or changes in patient status. History of Present Illness Reason for Consultation: "Patient requesting lithotripsy" Attending Physician: Adwoa Garcia MD History of Present Illness 83 year-old female patient with multiple comorbidities admitted 10/18 with persistent nausea, vomiting, left flank pain and suspected kidney stones. Pat ient reports roughly one week ago, she experienced one day of left flank pain. Flank pain resolved spontaneously the same day. Patient then developed nausea, episodes of intermittent vomiting, weakness, and shortness of breath which led her to ER. Urology service consulted due to patient being concerned for renal stone and requesting lithotripsy. Patient is known to [facility] urology service, follows with Dr. Tillman. Last office visit was in January 2019. Patient has history of cystolitholapaxy in November 2018 for a 2.3 cm bladder calculi. Patient does have a history of renal stones x2 both with spontaneous passage. Chart review: Afebrile Wbc 4.31 Hgb 12.1 Creatinine 0.98 Urinalysis negative for blood, wbc 5-10, +1 bacteria Prelim urine culture positive for e.coli >100,000 cfu pending sensitivities. Currently on IV Rocephin CT abd/pelvis: 1. No acute intra-abdominal or pelvic findings 2. No evidence of bowel obstruction. No evidence of free air 3. Diverticulosis. No evidence of acute diverticulitis. 4. Nonvisualization of the previously identified 2.3 cm bladder calculus. Several small bladder calculi are currently visualized. Renal ultrasound: 1. Bilateral renal cysts 2. Nonvisualization of the right ureteral jet 3. Extrarenal pelvis on the right. No evidence of significant hydronephrosis. Patient examined, awake, alert, sitting at bedside. She is feeling "much better" today. Currently NPO. Denies recent fevers or chills. Denies flank pain. She reports her nausea has resolved. No further vomiting episodes since last night. Denies hematuria or dysuria. Denies significant urgency or frequency. She feels she is emptying her bladder completely. She has been straining her urine at home without noted stones. She continues her Myrbetriq as directed. Next follow-up with Dr. Tillman is November 09, 2019. Denies additional urologic concerns today. Allergies Allergy/AdvReac Type Severity Reaction Status Date / Time amoxicillin Allergy Unknown RASH Verified 10/18/19 17:35 clavulanic acid Allergy Unknown RASH Verified 10/18/19 17:35 clindamycin Allergy Unknown RASH Verified 10/18/19 17:35 Sulfa (Sulfonamide Allergy Unknown RASH Verified 10/18/19 17:35 Antibiotics) cephalexin Allergy Verified 10/18/19 17:35 doxycycline Allergy Verified 10/18/19 17:35 meperidine [From Demerol] Allergy Verified 10/18/19 17:35 benzonatate AdvReac Unknown SICK IN Verified 10/18/19 17:35 STOMACH codeine AdvReac Unknown SICK IN Verified 10/18/19 17:35 STOMACH levofloxacin AdvReac Unknown SICK IN Verified 10/18/19 17:35 STOMACH Home Medications Home Medications Medication Instructions Recorded Confirmed Type calcium carbonate-vitamin D3 1 tab PO QAM 11/08/18 10/18/19 History [Calcium 500 + D] cholecalciferol (vitamin D3) 125 5,000 units PO DAILY 07/29/19 10/18/19 History mcg (5,000 unit) capsule apixaban 5 mg tablet 5 mg PO BID #180 tab 08/04/19 10/18/19 Rx losartan 50 mg tablet 50 mg PO QAM #90 tab 08/04/19 10/18/19 Rx diltiazem HCl 240 mg 240 mg PO DAILY #90 cap 10/10/19 10/18/19 Rx capsule,extended release 24 hr fluticasone propionate [Flovent 1 inh INHALATION DAILY 10/18/19 10/18/19 History Diskus] methimazole 5 mg PO QPM 10/18/19 10/18/19 History mirabegron [Myrbetriq] 25 mg PO QAM 10/18/19 10/18/19 History tiotropium bromide [Spiriva 2 puff INHALATION DAILY 10/18/19 10/18/19 History Respimat] Patient History Medical History Asthma WELL CONTROLLED Atrial fibrillation Initially presented in 2014 post-op with SBO. Spontaneously converted and anticoagulation d/c'd after 4 months. Reoccurred 02/2018, now on Eliquis. Bladder spasm Hypertension Hyperthyroidism On Methimazole, most recent TSH/T4 1.73/1/07 (WNL). Kidney stones Surgical History H/O dilation and curettage H/O exploratory laparotomy History of appendectomy History of bowel resection JUL 2015, BOWEL OBSTRUCTION History of cataract surgery B/L History of colonoscopy History of hysterectomy History of tonsillectomy Family History Mother Breast cancer Unknown Hypertension Brother Cardiac disorder Social History Preferred Language: Ivorian Communication Ability: Effective Government Teacher Required: No Beliefs That Will Affect Care: None marital status: Current Living Situation: Spouse Other Information That Helps Us Care for You: No Feels Safe at Home: Yes Safety Concerns: Feels Safe At This Time Smoking Status: Never smoker Do You Dip or Chew Tobacco: No ; Second Hand Exposure: No ; Hx Alcohol Use: No Hx Substance Use: No Review of Systems Constitutional: as per Subjective / HPI; no fever and no chills Respiratory: + cough (chronic for patient); no dyspnea Cardiovascular: no lightheadedness and no syncope Gastrointestinal: as per Subjective / HPI Genitourinary: as per Subjective / HPI; no dysuria and no hematuria Neurologic: no dizziness and no syncope Physical Exam Constitutional: well developed and well nourished; no acute distress and not ill appearing ENMT: Ears: no external ear abnormality Nose: no external nose abnormality Neck: normal visual inspection and trachea midline Respiratory: normal respiratory effort and able to speak in complete sentence s; no respiratory distress and no audible wheezes Cardiovascular: Extremities: no calf tenderness and no edema Gastrointestinal (Abdomen): Inspection/Auscultation: abdomen normal to inspection; abdomen not distended Percussion/Palpation: abdomen soft; abdomen nontender and no guarding Musculoskeletal: Moves all extremities without difficulty. Skin: No visible rashes, lesions, or wounds noted. Neurologic: moves all extremities and awake Psychiatric: Orientation: alert, oriented x 3 and cooperative Affect: euthymic affect Genitourinary: no CVA tenderness Results & Data Vital Signs (Past 12 Hours) Vital Signs Temp Pulse Resp BP Pulse Ox 10/19/19 07:38 36.8 C 60 16 138/70 94 PG Care Time/CCT Total # of Minutes Spent Total Time Spent with Patient: Total time spent is greater than 50% in coordination of care (as documented) at patient's floor/unit and/or counseling patient: Coding Level of Care Code 62943 Initial Inpt Care Lvl 3 Diagnoses Bladder stones N21.0 Nausea R11.0 Acute UTI N39.0
--- NOTE | 2019-10-19 14:50 | Electrocardiogram Report ---
Test Reason : Blood Pressure : / mmHG Vent. Rate : 064 BPM Atrial Rate : 064 BPM P-R Int : 180 ms QRS Dur : 138 ms QT Int : 456 ms P-R-T Axes : 087 066 053 degrees QTc Int : 470 ms Normal sinus rhythm Right bundle branch block Abnormal ECG When compared with ECG of 26-FEB-2018 06:49, Sinus rhythm has replaced Atrial fibrillation Right bundle branch block is now Present Confirmed by Berlin Little ([id number]) on 10/19/2019 2:50:20 PM Referred By: REFERRED SELF Confirmed By:Saul Little
--- NOTE | 2019-10-19 15:00 | Hospitalist Progress Note ---
Date of Service October 19, 2019 Assessment & Plan (1) UTI (urinary tract infection): * Urine with e coli, >100,000CFU * Continue ceftriaxone * Await sensitivities (2) Kidney stones: * History of kidney stones requiring lithotripsy- Patient reported that he had that she has had stones being trapped in the bladder, which have caused similar symptoms that she has now, and were only able to be relieved by lithotripsy. * CT of abdomen pelvis without evidence of stones. * Renal ultrasound is primarily significant for lack of visualization of right ureteral jet. * Urology consult -- appreciate input -- no need for intervention at this time, but will be scheduled for outpatient cysto (3) Vomiting: * Patient's primary symptoms of headache, nausea, vomiting and generalized weakness have been her usual presentation when she is had kidney stones in the past. * RESOLVED (4) Headache: * RESOLVED (5) HTN (hypertension): * Hypertension/paroxysmal atrial fibrillation- * Continue diltiazem 240 mg every morning. * Resume losartan 50 mg * Apixaban initially on hold for possible procedure -- resumed (6) Paroxysmal atrial fibrillation: * Paroxysmal, was in sinus on admission * Restarted Eliquis * Continue diltiazem for rate control (7) Hyperthyroidism: * Multiple thyroid nodules * Chronic. Stable. Follows locally with Endocrinology -- last seen July 2019 * Last TSH 4.January -- will repeat in AM * Continue methimazole 5 mg p.o. every evening (8) Bladder spasm: * Continue Myrbetriq 25 mg p.o. every morning (9) Asthma: * Continue Spiriva 1 inhalation daily (10) Hypercalcemia: * Ca slightly elevated at 10.5 today. Could be from dehydration * Of note, imaging from 2007 CT Chest with multiple tiny pulmonary nodules, too small to evaluate. Follow up recommended but I do not see any repeat CTs in the system * CT A/P 2014 with multiple tiny lytic lesions throughout the spine, could be due to osteoporosis or multiple myeloma * Patient with history of osteoporosis and vitamin D deficiency * check vitamin D 25-OH, intact PTH, phosphorus, albumin and calcium levels in the morning (11) DVT prophylaxis: * SCDs * Apixaban on hold initially for possible intervention -- resumed Dispo: await sensitivities, then transition to oral and discharge home. Follow up with Urology as outpatient Admission and Anticipated Discharge Date Admission Date: October 18, 2019 Supervising Physician Co-Signing Physician Notes PA Supervision Note: I did not personally see or examine the patient today, but I verified all estrada points of KARTHIK Patterson's assessment and plan with the following exceptions/additions: None Subjective Patient feeling well this morning. States she does not have any further pain. No further nausea/vomiting. Does have a cough that she states she has had for twenty plus years and was initially on lisinopril with switch to losartan without improvement. She also states she had been on medication for reflux and that was also not beneficial. Patient confirms history of asthma and that she uses flovent and spiriva as an outpatient but does not have or utilize a rescue inhaler. Denies unexplained weight loss, hemoptysis or smoking history. Denies dysuria at this time. Discussed findings of urine culture and that we will wait sensitivities prior to switching to an oral agent. Discussed urology will schedule outpatient cystoscopy given history. All questions/concerns address. Review of Systems Review of Systems: All systems reviewed & are unremarkable except as noted in HPI & below Constitutional: no fever, no weakness and no weight loss Eyes: no diplopia and no problem reported Ear, Nose, Mouth, Throat: no sore throat and no dysphagia Respiratory: + cough (no productive); no dyspnea Cardiovascular: no chest pain and no palpitations Gastrointestinal: no abdominal pain, no nausea and no vomiting Genitourinary: no dysuria and no hematuria Physical Exam Constitutional: WD/WN, vitals as above Eyes: + anicteric sclerae and PERRL Neck: trachea midline; no tracheal deviation Thyroid: + thyromegaly Respiratory: normal respiratory effort and + cough; no respiratory distress and no labored breathing Auscultation: + wheezes (end expiratory) Cardiovascular: Rate/Rhythm: + irregularly irregular Heart Sounds: normal S1 and normal S2; no murmur Extremities: no edema Gastrointestinal (Abdomen): normal bowel sounds, soft, nontender, no hepatosplenomegaly Musculoskeletal: no cyanosis or clubbing, extremities motor strength 5/5 Skin: no rashes, warm and dry Neurologic: moves all extremities and awake Speech / Cognition: normal speech Motor/Sensory: no tremor Psychiatric: A+Ox3, euthymic affect Genitourinary: no CVA tenderness Lymphatic: no cervical or axillary lymphadenopathy Results & Data ([facility]) Vital Signs (Past 12 Hours) Vital Signs Temp Pulse Resp BP Pulse Ox 10/19/19 07:38 36.8 C 60 16 138/70 94 Laboratory Results 10/19/19 10/19/19 10/18/19 Range/Units 07:57 07:57 18:16 WBC 4.31 L (4.8-10.8) K/uL RBC 3.88 L (4.2-5.4) M/uL Hgb 12.1 (12.0-16.0) g/dL Hct 37.9 (37-47) % MCV 97.7 (80-100) fL MCH 31.2 (25-34) pg MCHC 31.9 L (32-36) g/dL RDW Std Deviation 44.7 (36.4-46.3) fL RDW Coeff of Jaja 12.7 (11.5-14.5) % Plt Count 276 (130-400) K/uL MPV 10.2 (7.4-10.4) fL Immature Gran % (Auto) 0.2 % Neut % (Auto) 55.3 % Lymph % (Auto) 31.3 % [place] % (Auto) 10.7 % Eos % (Auto) 1.6 % Baso % (Auto) 0.9 % Immature Gran # (Auto) 0.01 (0.00-0.02) K/uL Neut # (Auto) 2.38 (1.4-6.5) K/uL Lymph # (Auto) 1.35 (1.2-3.4) K/uL [place] # (Auto) 0.46 (0.11-0.59) K/uL Eos # (Auto) 0.07 (0-0.5) K/uL Baso # (Auto) 0.04 (0-0.2) K/uL PT (9.0-12.0) Seconds INR (0.9-1.1) APTT (21.0-31.0) Seconds PTT Ratio Sodium 142 (136-145) mmol/L Potassium 4.5 (3.5-5.1) mmol/L Chloride 110 H (98-107) mmol/L Carbon Dioxide 30 (21-32) mmol/L Anion Gap 2.0 L (3-11) BUN 15 (7-18) mg/dl Creatinine 0.98 (0.6-1.2) mg/dl Est Cr Clr Drug Dosing 43.9 ml/min Est GFR ( Amer) 61.8 Est GFR (Non-Af Amer) 53.3 BUN/Creatinine Ratio 15.0 (10-20) Glucose 80 (70-99) mg/dl Calcium 9.4 (8.5-10.1) mg/dl Total Bilirubin 0.3 (0.2-1) mg/dl AST 9 L (15-37) U/L ALT 10 L (12-78) U/L Alkaline Phosphatase 65 (45-117) U/L Troponin I (0-0.045) ng/ml Total Protein 6.7 (6.4-8.2) gm/dl Albumin 2.9 L (3.4-5.0) gm/dl Globulin 3.8 (2.5-4.0) gm/dl Albumin/Globulin Ratio 0.8 L (0.9-2) Lipase (73-393) U/L Urine Color Yellow Urine Appearance Turbid A (Clear) Urine pH >= 9.0 H (4.5-7.5) Ur Specific [place] 1.021 (1.000-1.030) Urine Protein Negative (Negative) Urine Glucose (UA) Negative (Negative) Urine Ketones Negative (Negative) Urine Blood Negative (Negative) Urine Nitrite Negative (Negative) Urine Bilirubin Negative (Negative) Urine Urobilinogen Negative (Negative) Ur Leukocyte Esterase Negative (Negative) Urine WBC (Auto) 5-10 H (0-5) /hpf Urine RBC (Auto) 0-4 (0-4) /hpf U Hyaline Cast (Auto) 1-5 (0-5) /lpf U Epithel Cells (Auto) 5-10 H (0-5) /lpf Urine Bacteria (Auto) 1+ H (Negative) 10/18/19 10/18/19 10/18/19 Range/Units 16:28 16:28 16:28 WBC 4.72 L (4.8-10.8) K/uL RBC 4.21 (4.2-5.4) M/uL Hgb 13.4 (12.0-16.0) g/dL Hct 40.8 (37-47) % MCV 96.9 (80-100) fL MCH 31.8 (25-34) pg MCHC 32.8 (32-36) g/dL RDW Std Deviation 44.2 (36.4-46.3) fL RDW Coeff of [place]aja 12.5 (11.5-14.5) % Plt Count 286 (130-400) K/uL MPV 10.3 (7.4-10.4) fL Immature Gran % (Auto) 0.2 % Neut % (Auto) 72.7 % Lymph % (Auto) 19.7 % [place] % (Auto) 5.7 % Eos % (Auto) 1.1 % Baso % (Auto) 0.6 % Immature Gran # (Auto) 0.01 (0.00-0.02) K/uL Neut # (Auto) 3.43 (1.4-6.5) K/uL Lymph # (Auto) 0.93 L (1.2-3.4) K/uL [place] # (Auto) 0.27 (0.11-0.59) K/uL Eos # (Auto) 0.05 (0-0.5) K/uL Baso # (Auto) 0.03 (0-0.2) K/uL PT 10.8 (9.0-12.0) Seconds INR 1.1 (0.9-1.1) APTT 28.2 (21.0-31.0) Seconds PTT Ratio 1.0 Sodium 137 (136-145) mmol/L Potassium 4.1 (3.5-5.1) mmol/L Chloride 104 (98-107) mmol/L Carbon Dioxide 31 (21-32) mmol/L Anion Gap 2.0 L (3-11) BUN 19 H (7-18) mg/dl Creatinine 0.97 (0.6-1.2) mg/dl Est Cr Clr Drug Dosing 44.3 ml/min Est GFR ( Amer) 62.6 Est GFR (Non-Af Amer) 54.0 BUN/Creatinine Ratio 19.3 (10-20) Glucose 100 H (70-99) mg/dl Calcium 10.5 H (8.5-10.1) mg/dl Total Bilirubin 0.3 (0.2-1) mg/dl AST 11 L (15-37) U/L ALT 13 (12-78) U/L Alkaline Phosphatase 80 (45-117) U/L Troponin I < 0.015 (0-0.045) ng/ml Total Protein 8.1 (6.4-8.2) gm/dl Albumin 3.5 (3.4-5.0) gm/dl Globulin 4.6 H (2.5-4.0) gm/dl Albumin/Globulin Ratio 0.8 L (0.9-2) Lipase 126 (73-393) U/L Urine Color Urine Appearance (Clear) Urine pH (4.5-7.5) Ur Specific [place] (1.000-1.030) Urine Protein (Negative) Urine Glucose (UA) (Negative) Urine Ketones (Negative) Urine Blood (Negative) Urine Nitrite (Negative) Urine Bilirubin (Negative) Urine Urobilinogen (Negative) Ur Leukocyte Esterase (Negative) Urine WBC (Auto) (0-5) /hpf Urine RBC (Auto) (0-4) /hpf U Hyaline Cast (Auto) (0-5) /lpf U Epithel Cells (Auto) (0-5) /lpf Urine Bacteria (Auto) (Negative) PG Care Time/CCT Total # of Minutes Spent Total Time Spent with Patient: Total time spent is greater than 50% in coordination of care (as documented) at patient's floor/unit and/or counseling patient: Coding Level of Care Code 10481 Subseq Hosp Care Lvl 2 Diagnoses UTI (urinary tract infection) N39.0 Kidney stones N20.0 Vomiting R11.2 Nausea presence: with nausea Vomiting Intractability: intractable Vomiting type: unspecified Headache R51 Headache chronicity pattern: acute headache Headache type: unspecified Intractability: intractable HTN (hypertension) I10 Paroxysmal atrial fibrillation I48.0 Hyperthyroidism E05.90 Bladder spasm N32.89 Asthma J45.909 Hypercalcemia E83.52 DVT prophylaxis Z29.9 (1) Headache Headache chronicity pattern: acute headache Headache type: unspecified Intractability: intractable Qualified Code(s): R51 - Headache (2) Vomiting Nausea presence: with nausea Vomiting Intractability: intractable Vomiting type: unspecified Qualified Code(s): R11.2 - Nausea with vomiting, unspecified
[2019-10-19] MEDS ORDERED: methIMAzole 5 MG TABLET PO SCH (21:00)
[2019-10-19] MEDS: APIXABAN 5 MG TABLET PO SCH (21:14)
[2019-10-20] MEDS ORDERED: LOSARTAN POTASSIUM 50 MG TAB PO STA (00:16)
[2019-10-20 06:23] LABS: Basophils # (auto) 0.03 K/uL (0-0.2); Basophils % (auto) 0.8 %; Eosinophils % (auto) 2.7 %; Hematocrit (blood only) 40.2 % (37-47); Hemoglobin 12.7 g/dL (12.0-16.0); Immature Granulocytes # (auto) 0.01 K/uL (0.00-0.02); Immature Granulocytes % (auto) 0.3 %; Lymphocytes # (auto) 1.26 K/uL (1.2-3.4); Lymphocytes % (auto) 33.4 %; Mean Corpuscular Hgb Conc 31.6 g/dL (32-36); Mean Platelet Volume 10.5 fL (7.4-10.4); Monocytes # (auto) 0.33 K/uL (0.11-0.59); Monocytes % (auto) 8.8 %; Neutrophils # (auto) 2.04 K/uL (1.4-6.5); Platelet Count 248 K/uL (130-400); RDW Standard Deviation 46.2 fL (36.4-46.3); White Blood Count 3.77 K/uL (4.8-10.8)
[2019-10-20 06:45] LABS: Albumin Level 2.9 gm/dl (3.4-5.0); BUN Creatinine Ratio 12.9 (10-20); Calcium 9.3 mg/dl (8.5-10.1); Creatinine Clr Calc Pharmacy 48.3 ml/min; Est GFR (African American) 69.5; Est GFR (Non-African American) 59.9; Potassium 4.1 mmol/L (3.5-5.1)
[2019-10-20 06:56] LABS: Albumin Globulin Ratio 0.8 (0.9-2); Bilirubin,Total 0.3 mg/dl (0.2-1); Globulin 3.8 gm/dl (2.5-4.0); Phosphorus 2.4 mg/dl (2.5-4.9); Thyroid Stimulating Hormone 2.43 uIu/ml (0.300-4.500); Total Protein 6.7 gm/dl (6.4-8.2)
[2019-10-20] MEDS: FLUTICASONE FUROATE 100MCG 14 PUFFS/INHALER INH SCH (08:34)
[2019-10-20] MEDS: UMECLIDINIUM BROMIDE 62.5MCG/BLISTER 7 PUFFS/INHALER INH SCH (08:34)
[2019-10-20] MEDS: cefTRIAXone SODIUM 1,000 MG in DEXTROSE 5% 50 ML IV SCH (08:35)
[2019-10-20] MEDS: APIXABAN 5 MG TABLET PO SCH (08:36)
[2019-10-20] MEDS: dilTIAZem HCL 240 MG CAPCR PO SCH (08:36)
[2019-10-20] MEDS: MIRABEGRON ER 25 MG TAB PO SCH (08:36)
[2019-10-20] MEDS: CHOLECALCIFEROL 1,000 UNITS 25 MCG TAB PO SCH (08:36)
[2019-10-20] MEDS ORDERED: LOSARTAN POTASSIUM 50 MG TAB PO SCH (09:00)
[2019-10-20] MEDS: POT PHOSPHATE MONOBASIC W/ SOD TAB PO SCH ×2 (10:02→12:50)
--- NOTE | 2019-10-20 12:23 | Hospitalist Progress Note ---
Date of Service October 20, 2019 Assessment & Plan Admission and Anticipated Discharge Date Admission Date: October 18, 2019 Results & Data ([facility]) Vital Signs (Past 12 Hours) Vital Signs Temp Pulse Resp BP Pulse Ox 10/20/19 07:09 36.5 C 63 18 158/56 H 95 10/20/19 00:56 60 150/68 H PG Care Time/CCT Total # of Minutes Spent Total Time Spent with Patient: Total time spent is greater than 50% in coordination of care (as documented) at patient's floor/unit and/or counseling patient: Coding
--- NOTE | 2019-10-20 13:09 | Discharge Summary ---
Date of Service October 20, 2019 Admission HPI Per Admitting Provider The patient is a 83-year-old female with a past medical history including paroxysmal atrial fibrillation, osteopenia, multiple thyroid nodules, multiple pulmonary nodules, hyperthyroidism, history of small bowel obstruction, goiter, asthma, hypertension, renal calculi, and migraine. She presents to the emergency department with the acute onset of left flank pain, weakness, headache and intermittent shortness of breath. She reports that when she is had these symptoms in the past, is been associated with passage of a ureteral calculus into the bladder, where she had to undergo lithotripsy to dissolve the bladder stone. Admission Exam Per Admitting Provider Physical Exam: The patient is awake, alert and oriented 3, normocephalic and atraumatic, lying in bed and in no acute distress. HEENT--PERRL, EOMI, mucous membranes and oropharynx dry. Neck--supple. No JVD. No bruits. Thyroid normal, trachea midline, no adenopathy. Heart--normal S1 and S2. No murmurs, rubs or gallops. Lungs--clear bilaterally, no respiratory distress, no accessory muscle use. Abdomen--normal bowel sounds and soft. Nontender. Nondistended. Extremities--no cyanosis or clubbing. No edema. There are good distal pulses b/l. Dermatologic--normal skin turgor, normal color, no abnormal lymph nodes, no rash. Neurologic--cranial nerves II through XII grossly intact. Rheumatologic--normal range of motion. Psychiatric--normal affect. Principal Diagnosis Intractable nausea/vomiting, Cystitis Discharge Exam Constitutional WD/WN, vitals as above Eyes + anicteric sclerae and PERRL Neck trachea midline; no tracheal deviation Thyroid: + thyromegaly Respiratory normal respiratory effort; no respiratory distress and no labored breathing Auscultation: + wheezes (end expiratory) Cardiovascular RRR, no murmur, no edema Rate/Rhythm: + irregularly irregular Heart Sounds: normal S1 and normal S2; no murmur Extremities: no edema Gastrointestinal (Abdomen) normal bowel sounds, soft, nontender, no hepatosplenomegaly Musculoskeletal no cyanosis or clubbing, extremities motor strength 5/5 Skin no rashes, warm and dry Neurologic moves all extremities and awake Speech / Cognition: normal speech Motor/Sensory: no tremor Psychiatric A+Ox3, euthymic affect Lymphatic no cervical or axillary lymphadenopathy Discharge Data Allergies Allergy/AdvReac Type Severity Reaction Status Date / Time amoxicillin Allergy Unknown RASH Verified 10/21/19 12:39 clavulanic acid Allergy Unknown RASH Verified 10/21/19 12:39 clindamycin Allergy Unknown RASH Verified 10/21/19 12:39 Sulfa (Sulfonamide Allergy Unknown RASH Verified 10/21/19 12:39 Antibiotics) cephalexin Allergy Verified 10/21/19 12:39 doxycycline Allergy Verified 10/21/19 12:39 meperidine [From Demerol] Allergy Verified 10/21/19 12:39 benzonatate AdvReac Unknown SICK IN Verified 10/21/19 12:39 STOMACH codeine AdvReac Unknown SICK IN Verified 10/21/19 12:39 STOMACH levofloxacin AdvReac Unknown SICK IN Verified 10/21/19 12:39 STOMACH Consultations 10/18/19 19:00 ED Decision to Admit Stat 10/18/19 22:27 Consult Case Management - Discharge Planning Routine 10/19/19 08:16 Consult Urology Routine Ordered Studies 10/18/19 16:34 CT abd pelvis IV con only Stat CT head/brain wo con Stat CXR 10/18/19 21:08 US renal/blad retro comp Stat Hospital Course (1) Vomiting: * Patient's primary symptoms of headache, nausea, vomiting and generalized weakness have been her usual presentation when she is had kidney stones in the past. * She had stones in bladder but none in ureters * Could have been viral gastroenteritis * RESOLVED (2) UTI (urinary tract infection): * Urine with e coli, >100,000CFU . Pansensitive * Ceftriaxone IV transtitioned to cefdinir 300mg BID for total 7 days (3) Kidney stones: * History of kidney stones requiring lithotripsy- Patient reported that he had that she has had stones being trapped in the bladder, which have caused similar symptoms that she had on admission and have only been relieved in the past by lithotripsy * CT of abdomen pelvis without evidence of ureteral stones, but had bladder calculi not as large as previously. * Renal ultrasound is primarily significant for lack of visualization of right ureteral jet. * Urology consult -- appreciate input -- no need for intervention at this time, but will be scheduled for outpatient cysto per Urology team (4) Headache: * On admission * CT head without acute findings, progressive small vessel ischemic changes * likely from dehydration from vomiting * RESOLVED prior to discharge (5) HTN (hypertension): * Hypertension/paroxysmal atrial fibrillation- * Continued diltiazem 240 mg every morning. * Losartan initially held, resumed once dehydration resolved (6) Paroxysmal atrial fibrillation: * Paroxysmal, was in sinus on admission * Restarted Eliquis after held on admission in case needed Urological procedure * Continued diltiazem for rate control -- 60-80s on telemetry (7) Hyperthyroidism: * Chronic. Stable. Follows locally with Endocrinology -- last seen July 2019. Mulriple thyroid nodules on most recent US * Last TSH 4.January * TSH 2.43 * Continued methimazole 5 mg p.o. every evening (8) Bladder spasm: * Continued Myrbetriq 25 mg p.o. every morning (9) Asthma: * Continued Spiriva, FLovent * ALbuterol inhaler sent at discharge for rescue symptoms/wheezing (10) Hypercalcemia: * Ca slightly elevated at 10.5. Could be from dehydration, as resolved with rehydration. * Of note, imaging from 2007 CT Chest with multiple tiny pulmonary nodules, too small to evaluate. Follow up recommended but I do not see any repeat CTs in the system * CT A/P 2014 with multiple tiny lytic lesions throughout the spine, could be due to osteoporosis or multiple myeloma but not seen on imaging done since that time * Patient with history of osteoporosis and vitamin D deficiency * Vit D pending * intact PTH wnl * Phos slightly low at 2.4. Given kphos prior to discharge -- follow up with PCP * Rec to patient to follow up as outpatient for repeated imaging (11) DVT prophylaxis: * SCDs * Apixaban on hold initially for possible intervention but was resumed when no longer on for cysto Discharged home with cefdinir. Follow up with urology as outpatient for cysto in 2-3 weeks per Urology. Total Time Total Time Spent Total Time Spent (In Minutes): 55 Discharge Plan Discharge Items Patient Disposition: Home - Self-Care Reason For Visit: INRACTABLE NAUSEA AND VOMITING Discharge Diagnosis: Urinary Tract Infection Condition on Discharge: Fair Goals: You have been hospitalized for an acute medical problem. During your stay at [facility], we have made an effort to correct the problem that brought you to the hospital while keeping you as comfortable as possible. Medications were used to bring your condition under control and your discharge instructions will include directions for any medications you should take after leaving the hospital. Please make sure you see your Primary Care Provider as part of your follow up plan. Activity: Resume your previous activity Non-emergency contact: Primary Care Provider and Urologist Call non-emergency contact if: you have any medication questions, your symptoms worsen and your pain is not controlled Follow-up/Referrals: Trevon Tillman MD [Physician] - (for outpatient cysto) Rocky Norton MD [Primary Care Provider] - 10/21/19 12:40 pm (If you need to reschedule this appointment, please call [phone] or [phone]. You will be seeing Jefferson Altamirano at 11:45 prior to your appointment with Dr. Norton) Diet: Heart Healthy Addtl Attending Provider Instructions: You have been hospitalized for a urinary tract infection. Given your history, a CT scan and a follow up ultrasound of your kidneys was performed and urology was consulted. From their standpoint, given resolution of symptoms, they did not want to proceed with urgent intervention. Your urine grew a bacteria called E. coli. Testing was performed to see which antibiotic will work best. You are being sent with a prescription for cefdinir. A prescription was sent for cefdinir 300mg by mouth TWICE daily for 5 more days. The Urology office will call you regarding an outpatient follow up in the next 2-3 weeks for a cystoscopy for further evaluation. If you do not hear from them by Thursday, please call their office at . Regarding your chronic cough, it was seen on imaging back in 2007 that you were found to have several small pulmonary nodules that were too small to evaluation. You should discuss this with your primary care provider to see about repeat imaging of your chest to monitor for any changes. You have also been sent a prescription for an albuterol inhaler to use for acute wheezing/shortness of breath, given your history of asthma and lack of rescue inhaler. You should follow up with your primary care provider in the next 3-5 days. Please return to the emergency room with any worsening pain, fever or symptoms that are concerning for you. Pending Studies at Discharge: Yes Studies:: Vitamin D Stand[facility]Alone [facility]: [facility] Order Prescriptions: New albuterol sulfate 90 mcg/actuation HFA aerosol inhaler 1 puffs INH Q6H PRN (Reason: shortness of breath or wheezing) Qty: 6.7 RF: 0 Continued Eliquis 5 mg tablet 5 mg PO BID Qty: 180 RF: 3 losartan 50 mg tablet 50 mg PO QAM Qty: 90 RF: 3 cholecalciferol (vitamin D3) 5,000 unit capsule 5,000 units PO DAILY RF: 0 diltiazem HCl 240 mg capsule,extended release 24hr 240 mg PO DAILY Qty: 90 RF: 3 calcium carbonate-vitamin D3 [Calcium 500 + D] 500 mg(1,250mg) -200 unit Tablet 1 tab PO QAM RF: 0 Flovent Diskus 100 mcg/actuation blister with device 1 inh INHALATION DAILY RF: 0 Spiriva Respimat 2.5 mcg/actuation mist 2 puff INHALATION DAILY RF: 0 methimazole 5 mg tablet 5 mg PO QPM RF: 0 Myrbetriq 25 mg tablet extended release 24 hr 25 mg PO QAM RF: 0 Discharge Orders: Discharge Order (Routine); Ordered 10/20/19 Ordered By: Tatyana Patterson Admission Data Admit Date/Time: 10/18/19 21:07 Attending Provider: Adwoa Garcia Admit Provider: Vince Muñoz Primary Care Provider: Rocky Norton Other Providers: Vince Muñoz ; Trevon Tillman I. Other Interventions: Discharge Summary Assessment (RN) Last Done: 10/20/19 14:02 DC Date/Time DO NOT enter until pt leaves facility: 10/20/19 16:46 Supervising Physician Co-Signing Physician Notes PA Supervision Note: I personally saw and examined the patient. I verified all estrada points and agree with KARTHIK Patterson with the following exceptions and/or additions: Pt much improved. Denies any further N/V and is eating all her meals. Denies any flank or abdominal pain. VSS NAD,AAOx3 RRR no mgr CTAB no wcr Abd +BS soft NT ND Ext no edema or calf tenderness Skin no rashes 83 yo female here with a h/o kidney stones, PAF, hyperthyroidism, asthma, HTN, here with intractable nausea/vomiting, found to have simple UTI. May have passed a stone prior to admission as calculi seen in bladder and flank pain resolved. Possible viral GE? All resolved, doing well Stable for dc to home Coding Level of Care Code 07679 OBS Care - Discharge Diagnoses Vomiting R11.2 Nausea presence: with nausea Vomiting Intractability: intractable Vomiting type: unspecified UTI (urinary tract infection) N39.0 Kidney stones N20.0 Headache R51 Headache chronicity pattern: acute headache Headache type: unspecified Intractability: intractable HTN (hypertension) I10 Paroxysmal atrial fibrillation I48.0 Hyperthyroidism E05.90 Bladder spasm N32.89 Asthma J45.909 Hypercalcemia E83.52 DVT prophylaxis Z29.9
[2019-10-26 03:36] LABS: Vitamin D 1,25 59 pg/mL (18-72); Vitamin D3,1,25 59 pg/mL
== END 2019-10-20 16:46 | disposition home or self-care (01) ==
LOC: ED 15:30 → 2W 15:30 → SUATTDRO 21:07 → 2W 21:52

== ENCOUNTER 2022-03-20 15:21 | Observation (INO) ==
--- NOTE | 2022-03-20 15:39 | ED Triage Note ---
Date of Service March 20, 2022 History of Present Illness This patient was briefly evaluated while in triage. An abbreviated physical exam was performed. This patient is a 86-year-old Female with past medical history of atrial fibrillation who presents to the ED for evaluation of chest pain. Patient states symptoms started 1.5 hours ago. Not exertional in nature. Physical Exam VITALS: Vitals are noted on the nurse's note and reviewed by myself. GENERAL: This is an 86-year-old female, nondiaphoretic, well-developed well- nourished. SKIN: The skin was without rashes. NECK: Supple without nuchal rigidity. HEART: Regular rate and rhythm without murmurs gallops or rubs. LUNGS: Clear to auscultation bilaterally without wheezes, rales or rhonchi. NEURO: Patient was alert and oriented to person place and time. Initial orders for labs and / or imaging were placed and patient was placed in the waiting area until a bed is available. Please see further documentation for the full ED course. MDM / Impression Impression Impression: Chest pain : Chest pain Qualifiers: Chest pain type: unspecified Qualified Code(s): R07.9 - Chest pain, unspecified
[2022-03-20 16:05] LABS: Basophils # (auto) 0.05 K/uL (0-0.2); Basophils % (auto) 0.7 %; Eosinophils # (auto) 0.03 K/uL (0-0.50); Eosinophils % (auto) 0.4 %; Hematocrit (blood only) 43.5 % (34.1-44.9); Hemoglobin 14.1 g/dl (12.0-16.0); Immature Granulocytes # (auto) 0.01 K/uL (0.00-0.02); Immature Granulocytes % (auto) 0.1 %; Lymphocytes # (auto) 1.02 K/uL (1.2-3.4); Lymphocytes % (auto) 15.2 %; Mean Corpuscular Hemoglobin 31.6 pg (25.0-34.0); Mean Corpuscular Hgb Conc 32.4 g/dL (32.0-36.0); Mean Corpuscular Volume 97.5 fL (80.0-100.0); Mean Platelet Volume 11.2 fL (9.4-12.3); Monocytes # (auto) 0.55 K/uL (0.24-0.82); Monocytes % (auto) 8.2 %; Neutrophils # (auto) 5.04 K/uL (1.4-6.5); Neutrophils % (auto) 75.4 %; Platelet Count 188 K/uL (130-400); RDW Coefficient of Variation 12.4 % (11.5-14.5); RDW Standard Deviation 44.9 fL (36.4-46.3); Red Blood Count 4.46 M/uL (3.93-5.22)
[2022-03-20 16:28] LABS: Partial Thromboplastin Ratio 1.1; Partial Thromboplastin Time 29.9 Seconds (21.0-31.0); Prothrombin Time 11.1 Seconds (9.0-12.0)
[2022-03-20 16:33] LABS: Albumin Globulin Ratio 1.3 (0.9-2); Albumin Level 4.3 gm/dl (3.4-5.0); BUN Creatinine Ratio 20.3 (10-20); Bilirubin,Total 0.5 mg/dl (0.2-1.0); Calcium 10.7 mg/dl (8.5-10.1); Creatinine Clr Calc Pharmacy 30.6 ml/min; Est GFR (African American) 41.8 ml/min; Est GFR (Non-African American) 36.1 ml/min; Globulin 3.2 gm/dl (2.5-4.0); Potassium 4.2 mmol/L (3.5-5.1); Total Protein 7.5 gm/dl (6.0-8.3)
[2022-03-20 16:36] LABS: Troponin I High Sensitivity 14.7 pg/ml (0-14)
--- NOTE | 2022-03-20 17:16 | XRay Report ---
XR chest 1V portable CLINICAL HISTORY: Chest Pain. COMPARISON STUDY: 10/18/2019 TECHNIQUE: 1 view of the chest FINDINGS: Single frontal view of the chest demonstrates the cardiomediastinal silhouette to be within normal li mits. There is hyperinflation of the lungs with attenuation of the pulmonary vasculature peripherally characteristic of underlying chronic obstructive pulmonary disease. The lungs are clear of alveolar opacities. There is no evidence for pleural effusion. There is no evidence for vascular congestion. T here is no acute osseous pathology. IMPRESSION: 1. No acute cardiopulmonary disease. Evidence for mild underlying COPD. ACT 112: Negative or not required by law. Electronically signed by: Óscar Scott M.D. 03/20/2022 5:15 PM
--- NOTE | 2022-03-20 17:50 | Electrocardiogram Report ---
Test Reason : Blood Pressure : / mmHG Vent. Rate : 088 BPM Atrial Rate : 101 BPM P-R Int : 000 ms QRS Dur : 126 ms QT Int : 404 ms P-R-T Axes : 000 055 006 degrees QTc Int : 488 ms Poor data quality, interpretation may be adversely affected Atrial fibrillation Right bundle branch block Abnormal ECG When compared with ECG of 18-OCT-2019 17:11, Atrial fibrillation has replaced Sinus rhythm Confirmed by Mckay Santillan ([id number]) on 03/20/2022 5:49:46 PM Referred By: Confirmed By:Mckay Santillan
--- NOTE | 2022-03-20 21:03 | Emergency Department Note ---
History of Present Illness General Chief Complaint: Chest Pain Stated Complaint: REF BY , CHEST PAIN, DIZZINESS Time Seen by Provider: 03/20/22 20:56 History of Present Illness Provider Complaint: chest pain Onset (ago): day(s) 1 Duration: intermittent and improved Onset: during exertion (peeling corn) Pain Location: substernal Pain Radiation: LUE Severity: moderate Maximum Pain Intensity: 7 Current Pain Intensity: 7 Quality: + aching and + heaviness Relieved By: + rest Exacerbated By: + exertion Context: no recent illness, no recent surgery, no recent immobilization, no recent travel, no trauma/injury, no new medications or no history of DVT/PE Associated symptoms: + dyspnea; no nausea, no vomiting, no diaphoresis, no syncope, no palpitations, no fever, no cough or no leg swelling Patient reports she was referred to the emergency department by cardiology Dr. Thornton. Home Medications Medication Instructions Recorded Confirmed Type calcium carbonate 500 mg-vitamin 1 tab PO QAM 11/08/18 03/20/22 History D3 5 mcg (200 unit) tablet (Calcium 500 + D) albuterol sulfate 90 mcg/actuation 2 puffs inhalation Q6H PRN 03/22/20 03/20/22 Rx aerosol inhaler shortness of breath or wheezing #3 Inhalers mecobalamin (vitamin B12) 1,000 1,000 mcg PO DAILY #30 tabs 02/11/21 03/20/22 Rx mcg chewable tablet fluticasone propionate 100 3 inh inhalation DAILY #4 Inhalers 03/20/21 03/20/22 Rx mcg/actuation blister powder for inhalation (Flovent Diskus) diltiazem HCl 240 mg 240 mg PO DAILY #90 caps 07/25/21 03/20/22 Rx capsule,extended release 24 hr loratadine 10 mg tablet (Claritin) 10 mg PO DAILY #30 tabs 09/04/21 03/20/22 Rx hydrochlorothiazide 12.5 mg tablet 12.5 mg PO DAILY #90 tabs 10/25/21 03/20/22 Rx losartan 50 mg tablet 50 mg PO BID #180 tabs 10/25/21 03/20/22 Rx apixaban 5 mg tablet (Eliquis) 5 mg PO BID #180 tabs 12/27/21 03/20/22 Rx cholecalciferol (vitamin D3) 50 50 mcg PO DAILY #30 caps 02/12/22 03/20/22 Rx mcg (2,000 unit) capsule denosumab 60 mg/mL subcutaneous 60 mg subcut .COMPLEX #1 mL 02/12/22 03/20/22 Rx syringe (Prolia) desmopressin 0.1 mg tablet 0.1 mg PO QPM 03/20/22 03/20/22 History methimazole 5 mg tablet 5 mg PO DAILY 03/20/22 03/20/22 History Allergies Allergy/AdvReac Type Severity Reaction Status Date / Time amoxicillin Allergy Unknown RASH Verified 03/20/22 21:40 clavulanic acid Allergy Unknown RASH Verified 03/20/22 21:40 clindamycin Allergy Unknown RASH Verified 03/20/22 21:40 Sulfa (Sulfonamide Allergy Unknown RASH Verified 03/20/22 21:40 Antibiotics) cephalexin Allergy Unknown Verified 03/20/22 21:40 doxycycline Allergy Unknown Verified 03/20/22 21:40 meperidine [From Demerol] Allergy Unknown Verified 03/20/22 21:40 benzonatate AdvReac Unknown SICK IN Verified 03/20/22 21:40 STOMACH codeine AdvReac Unknown SICK IN Verified 03/20/22 21:40 STOMACH levofloxacin AdvReac Unknown SICK IN Verified 03/20/22 21:40 STOMACH Past Med/Surg History Medical History (Updated 03/20/22 @ 22:06 by Acosta Nance) Asthma WELL CONTROLLED Atrial fibrillation Initially presented in 2014 post-op with SBO. Spontaneously converted and anticoagulation d/c'd after 4 months. Reoccurred 02/2018, now on Eliquis. Bladder spasm Bowel obstruction (2014) Hypertension Hyperthyroidism On Methimazole, most recent TSH/T4 1.73/1/07 (WNL). Kidney stones Surgical History H/O dilation and curettage H/O exploratory laparotomy History of appendectomy History of bowel resection JUL 2015, BOWEL OBSTRUCTION History of cataract surgery B/L History of colonoscopy History of hysterectomy History of tonsillectomy Family History Mother Breast cancer Unknown Hypertension Brother Cardiac disorder Denies family history of Ovarian cancer Prostate cancer Myocardial infarction Colorectal cancer Social History (Reviewed 03/20/22 @ 21:53 by Acosta Sexton Smoking Status: Never smoker Second Hand Exposure: No; Hx Alcohol Use: No Hx Substance Use: No Preferred Language: Bengali Communication Ability: Effective Visual Impairment: No Limitations Hearing Ability: Hard of Hearing Loss Prevention Manager Required: No Beliefs That Will Affect Care: None marital status: Current Living Situation: Spouse current occupational status: retired How many Children do You have: 2 Feels Safe at Home: Yes Childhood Exposure to Second-Hand Smoke: No during the past year weight has: remained stable Dental Care, Regularly: No Physical Activity Frequency: Daily Seatbelt Use: always Sunscreen Use: Yes Assistive Devices: None Review of Systems A total of 10 systems reviewed and were otherwise negative Physical Exam Vital Signs Vital Signs - 24 hr 03/20/22 15:34 03/20/22 15:50 03/20/22 20:58 Temperature 36.7 C Temperature Source Temporal Artery Scan Pulse Rate 83 Pulse Rate [Right Finger] 91 H Respiratory Rate 16 16 Respiratory Effort / Characteristics Non-Labored Respiratory Depth Normal Blood Pressure 156/78 H Blood Pressure [Right Arm] 143/89 H Blood Pressure Mean 104 Blood Pressure Mean [Right Arm] 107 Pulse Oximetry 96 97 95 Oxygen Delivery Method Room Air Room Air Room Air Sepsis Recent Fever Within 48 Hours No Sepsis New/Unexplained Change in Mental Status No Sepsis Action Taken by Nursing No Action Required Physical Exam GENERAL: She is oriented to person, place, and time. She appears well-developed and well-nourished. She does not appear distressed. HENT: Exam performed. -Head: Normocephalic and atraumatic. -Right Ear: External ear normal. No mastoid tenderness. -Left Ear: External ear normal. No mastoid tenderness. -Mouth/Throat: The oropharynx is clear and moist. No trismus in the jaw. No dental abscesses or uvula swelling. No oropharyngeal exudate or tonsillar abscesses. EYES: Conjunctivae and EOM are normal. Pupils are equal, round, and reactive to light. Right eye exhibits no discharge. Left eye exhibits no discharge. No scleral icterus. NECK: Normal range of motion. Neck supple. No JVD present. No spinous process tenderness present. No carotid bruit present. No rigidity. No tracheal deviation and normal range of motion present. No Brudzinski's sign and no Kernig's sign noted. CV: Normal rate, regular rhythm, normal heart sounds and intact distal pulses. There is no peripheral edema. Palpable radial pulses bue. PULM/CHEST: Effort normal and breath sounds normal. No respiratory distress. No stridor. She has no wheezes. She has no rales. -Chest Wall: She exhibits no tenderness. ABD: The abdomen is soft. Bowel sounds are normal. She has no distension. No mass is present. There is no tenderness. There is no rebound, no guarding, no Elizondo's sign and no tenderness at McBurney's point. Rovsig negative MUSC/SKEL: Normal range of motion. There is no peripheral edema, tenderness or deformity. LYMPH: No cervical adenopathy. NEURO: She is alert and oriented to person, place, and time. She has normal strength. No cranial nerve deficit or sensory deficit. Coordination and gait normal. GCS eye subscore is 4. GCS verbal subscore is 5. GCS motor subscore is 6. Cerebellar tests wnl. SKIN: Skin is warm and dry. She is not diaphoretic. PSYCH: She has a normal mood and affect. Behavior is normal. Judgment and thought content normal. Course Course 2055: The patient was evaluated in room B12. A complete history and physical exam was performed Medical Decision Making Laboratory Data Result diagrams: 03/20/22 15:53 03/20/22 15:53 Labs: Lab Results 03/20/22 03/20/22 03/20/22 Range/Units 15:53 15:53 15:53 WBC 6.70 (4.8-10.8) K/ul RBC 4.46 (3.93-5.22) M/uL Hgb 14.1 (12.0-16.0) g/dl Hct 43.5 (34.1-44.9) % MCV 97.5 (80.0-100.0) fL MCH 31.6 (25.0-34.0) pg MCHC 32.4 (32.0-36.0) g/dL RDW Std Deviation 44.9 (36.4-46.3) fL RDW Coeff of Jaja 12.4 (11.5-14.5) % Plt Count 188 (130-400) K/uL MPV 11.2 (9.4-12.3) fL Immature Gran % (Auto) 0.1 % Neut % (Auto) 75.4 % Lymph % (Auto) 15.2 % Reynolds % (Auto) 8.2 % Eos % (Auto) 0.4 % Baso % (Auto) 0.7 % Neut # (Auto) 5.04 (1.4-6.5) K/uL Lymph # (Auto) 1.02 L (1.2-3.4) K/uL Reynolds # (Auto) 0.55 (0.24-0.82) K/uL Eos # (Auto) 0.03 (0-0.50) K/uL Baso # (Auto) 0.05 (0-0.2) K/uL Immature Gran # (Auto) 0.01 (0.00-0.02) K/uL PT 11.1 (9.0-12.0) Seconds INR 1.0 (0.9-1.1) APTT 29.9 (21.0-31.0) Seconds PTT Ratio 1.1 Sodium 137 (136-145) mmol/L Potassium 4.2 (3.5-5.1) mmol/L Chloride 101 (98-107) mmol/L Carbon Dioxide 29 (21-32) mmol/L Anion Gap 7 (3-11) BUN 27 H (6-23) mg/dl Creatinine 1.33 H (0.6-1.2) mg/dl Est Cr Clr Drug Dosing 30.6 ml/min Est GFR ( Amer) 41.8 ml/min Est GFR (Non-Af Amer) 36.1 ml/min BUN/Creatinine Ratio 20.3 H (10-20) Glucose 95 (70-99(Fasting)) mg/dl Calcium 10.7 H (8.5-10.1) mg/dl Total Bilirubin 0.5 (0.2-1.0) mg/dl AST 16 (13-39) U/L ALT 10 (7-52) U/L Alkaline Phosphatase 70 (34-104) U/L Troponin I High Sens 14.7 H (0-14) pg/ml Total Protein 7.5 (6.0-8.3) gm/dl Albumin 4.3 (3.4-5.0) gm/dl Globulin 3.2 (2.5-4.0) gm/dl Albumin/Globulin Ratio 1.3 (0.9-2) SARS-CoV-2, RNA, NAAT (NEGATIVE) 03/20/22 Range/Units 21:09 WBC (4.8-10.8) K/ul RBC (3.93-5.22) M/uL Hgb (12.0-16.0) g/dl Hct (34.1-44.9) % MCV (80.0-100.0) fL MCH (25.0-34.0) pg MCHC (32.0-36.0) g/dL RDW Std Deviation (36.4-46.3) fL RDW Coeff of Jaja (11.5-14.5) % Plt Count (130-400) K/uL MPV (9.4-12.3) fL Immature Gran % (Auto) % Neut % (Auto) % Lymph % (Auto) % Reynolds % (Auto) % Eos % (Auto) % Baso % (Auto) % Neut # (Auto) (1.4-6.5) K/uL Lymph # (Auto) (1.2-3.4) K/uL Reynolds # (Auto) (0.24-0.82) K/uL Eos # (Auto) (0-0.50) K/uL Baso # (Auto) (0-0.2) K/uL Immature Gran # (Auto) (0.00-0.02) K/uL PT (9.0-12.0) Seconds INR (0.9-1.1) APTT (21.0-31.0) Seconds PTT Ratio Sodium (136-145) mmol/L Potassium (3.5-5.1) mmol/L Chloride (98-107) mmol/L Carbon Dioxide (21-32) mmol/L Anion Gap (3-11) BUN (6-23) mg/dl Creatinine (0.6-1.2) mg/dl Est Cr Clr Drug Dosing ml/min Est GFR ( Amer) ml/min Est GFR (Non-Af Amer) ml/min BUN/Creatinine Ratio (10-20) Glucose (70-99(Fasting)) mg/dl Calcium (8.5-10.1) mg/dl Total Bilirubin (0.2-1.0) mg/dl AST (13-39) U/L ALT (7-52) U/L Alkaline Phosphatase (34-104) U/L Troponin I High Sens (0-14) pg/ml Total Protein (6.0-8.3) gm/dl Albumin (3.4-5.0) gm/dl Globulin (2.5-4.0) gm/dl Albumin/Globulin Ratio (0.9-2) SARS-CoV-2, RNA, NAAT NEGATIVE (NEGATIVE) Imaging Data Chest x-ray: Radiologist's impression: Chest X-Ray 03/20/22 15:34 XR chest 1V portable CLINICAL HISTORY: Chest Pain. COMPARISON STUDY: 10/18/2019 TECHNIQUE: 1 view of the chest FINDINGS: Single frontal view of the chest demonstrates the cardiomediastinal silhouette to be within normal limits. There is hyperinflation of the lungs with attenua tion of the pulmonary vasculature peripherally characteristic of underlying chronic obstructive pulmonary disease. The lungs are clear of alveolar opacities. There is no evidence for pleural effusion. There is no evidence for vascular congestion. There is no acute osseous pathology. IMPRESSION: 1. No acute cardiopulmonary disease. Evidence for mild underlying COPD. ACT 112: Negative or not required by law. Electronically signed by: Óscar Scott M.D. 03/20/2022 5:15 PM ECG Data Indication: chest pain Rate (beats per minute): 88 Rhythm: normal sinus Findings: + RBBB; no ST depression, no ST elevation or no prolonged QT MDM Narrative Cardiac monitoring: An order was placed for continuous cardiac monitoring. The monitor shows a rate of 90 with atrial fibrilation rhythm Patient was seen during a time of extreme volume and extreme acuity in the emergency department. Nursing triage protocols were initiated and labs were drawn by protocol in the triage area. Vital signs stable. Labs show mildly elevated troponin. Patient be admitted to the [facility] hospitalist team Dr. Marcial notified. Impression & Plan Chest pain Discharge Plan Visit Data Chief Complaint: Chest Pain Stated Complaint: REF BY , CHEST PAIN, DIZZINESS ED Provider: Acosta Nance Discharge Problem: Chest pain Patient Disposition: Being Evaluated by Hospitalist Forms Stand Alone Forms: [facility] Prescriptions Prescriptions: No Action mecobalamin (vitamin B12) 1,000 mcg tablet,chewable 1,000 mcg PO DAILY Qty: 30 0RF diltiazem HCl 240 mg capsule,extended release 24hr 240 mg PO DAILY Qty: 90 3RF loratadine [Claritin] 10 mg tablet 10 mg PO DAILY Qty: 30 3RF losartan 50 mg tablet 50 mg PO BID Qty: 180 3RF hydrochlorothiazide 12.5 mg tablet 12.5 mg PO DAILY Qty: 90 2RF Eliquis 5 mg tablet 5 mg PO BID Qty: 180 3RF albuterol sulfate 90 mcg/actuation HFA aerosol inhaler 2 puffs INH Q6H PRN (Reason: shortness of breath or wheezing) Qty: 3 3RF cholecalciferol (vitamin D3) 50 mcg (2,000 unit) capsule 50 mcg PO DAILY Qty: 30 0RF Prolia 60 mg/mL syringe 60 mg subcut .COMPLEX Qty: 1 1RF Rx Instructions: 60 mg subcut every 6 months; Flovent Diskus 100 mcg/actuation blister with device 3 inh INHALATION DAILY Qty: 4 3RF calcium carbonate-vitamin D3 [Calcium 500 + D] 500 mg(1,250mg) -200 unit Tablet 1 tab PO QAM methimazole 5 mg tablet 5 mg PO DAILY desmopressin 0.1 mg tablet 0.1 mg PO QPM Referrals Referrals: ProRocky MD [Primary Care Provider] -
[2022-03-20] MEDS ORDERED: APIXABAN 5 MG TABLET PO ONE (21:45)
[2022-03-20] MEDS ORDERED: ASPIRIN CHEW 324 MG PO STA (21:53)
--- NOTE | 2022-03-20 22:03 | History & Physical Report ---
Date of Service March 20, 2022 Assessment & Plan (1) Chest pain: Plan: Pain under left breast with radiation to neck - DDX: Angina vs. atypical non cardiac chest pain with atrial fibrillation - resolved with rest - afib on monitor - ECG without acute ST elevation - Trend HScTNI- 14.7 --> 15.0 8 hours post symptom onset. 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 - LR overnight for one liter - Likely be able to resume ARB in am - mild dehydration likely (4) Hyperthyroidism: Plan: Continue Methimazole - TSH as above (5) Asthma: Plan: Well controlled with chronic cough - she states she hasn't used her Albuterol - stable symptoms - Continue Loratadine (6) HTN (hypertension): Plan: Controlled continue ARB continue HCTZ (7) Hypercalcemia: Plan: Chronic follows with endocrinology - check iCA in am - PTH 11/07/21 was 65.9 and at same level - Continue with HCTZ - likely mildly dehydrated as well (8) Bladder stones: Plan: Continue desmopressin non acute History of Present Illness Primary Care Provider: Rocky Norton MD 86 YOF with medical history of: PAF(on Dilt and Eliquis), Hyperthyroidism (on methimazole), asthma, osteopenia, hypercalcemia, exertional chest pressure. Patient comes to the EMD today for complaint of left breast pain with dyspnea. This occurred at around 1300 today while patient was putting corn into her freezer. This was associated with dyspnea and some radiation to her neck. She checked her blood pressure and noted it to be low at 104 and her HR was 62, she laid down because she started to feel some fatigue, she woke up at around 1430 and felt her pulse was irregular so she felt her radial pulse and noted it to be "skipping beats and faster", she again checked her HR and BP this was 120/60s with HR to 70s. She then called her Regulatory Technician's office and was referred to the EMD by the nurse at the office. Patient came to the EMD she was triaged and had routine labs done were done to include HScTNI with a ECG. She was noted to be in Afib her HScTNI was 14.7. Hospitalist service was called for admission. She was then given 324 mg of Aspirin by the EMD. She is no longer having this pain and it resolved about an hour ago (1999). She also missed her evening dose of Eliquis so this will be given now. Patient reports that she was out yesterday at [employer] walking around and carrying some bags and had no dyspnea or chest pain with that. Will give her 2gm of magnesium, check TSH, repeat HScTNI. In reviewing her previous notes her symptoms are consistent with her going into atrial fibrillation. Patient will be observed overnight to trend her HScTNI and symptoms. She is rate controlled and on anticoagulation. COVID test on admission is: NEGATIVE Allergies Allergy/AdvReac Type Severity Reaction Status Date / Time amoxicillin Allergy Unknown RASH Verified 03/20/22 21:40 clavulanic acid Allergy Unknown RASH Verified 03/20/22 21:40 clindamycin Allergy Unknown RASH Verified 03/20/22 21:40 Sulfa (Sulfonamide Allergy Unknown RASH Verified 03/20/22 21:40 Antibiotics) cephalexin Allergy Unknown Verified 03/20/22 21:40 doxycycline Allergy Unknown Verified 03/20/22 21:40 meperidine [From Demerol] Allergy Unknown Verified 03/20/22 21:40 benzonatate AdvReac Unknown SICK IN Verified 03/20/22 21:40 STOMACH codeine AdvReac Unknown SICK IN Verified 03/20/22 21:40 STOMACH levofloxacin AdvReac Unknown SICK IN Verified 03/20/22 21:40 STOMACH Home Medications Medication Instructions Recorded Confirmed Type calcium carbonate 500 mg-vitamin 1 tab PO QAM 11/08/18 03/20/22 History D3 5 mcg (200 unit) tablet (Calcium 500 + D) albuterol sulfate 90 mcg/actuation 2 puffs inhalation Q6H PRN 03/22/20 03/20/22 Rx aerosol inhaler shortness of breath or wheezing #3 Inhalers mecobalamin (vitamin B12) 1,000 1,000 mcg PO DAILY #30 tabs 02/11/21 03/20/22 Rx mcg chewable tablet fluticasone propionate 100 3 inh inhalation DAILY #4 Inhalers 03/20/21 03/20/22 Rx mcg/actuation blister powder for inhalation (Flovent Diskus) diltiazem HCl 240 mg 240 mg PO DAILY #90 caps 07/25/21 03/20/22 Rx capsule,extended release 24 hr loratadine 10 mg tablet (Claritin) 10 mg PO DAILY #30 tabs 09/04/21 03/20/22 Rx hydrochlorothiazide 12.5 mg tablet 12.5 mg PO DAILY #90 tabs 10/25/21 03/20/22 Rx losartan 50 mg tablet 50 mg PO BID #180 tabs 10/25/21 03/20/22 Rx apixaban 5 mg tablet (Eliquis) 5 mg PO BID #180 tabs 12/27/21 03/20/22 Rx cholecalciferol (vitamin D3) 50 50 mcg PO DAILY #30 caps 02/12/22 03/20/22 Rx mcg (2,000 unit) capsule denosumab 60 mg/mL subcutaneous 60 mg subcut .COMPLEX #1 mL 02/12/22 03/20/22 Rx syringe (Prolia) desmopressin 0.1 mg tablet 0.1 mg PO QPM 03/20/22 03/20/22 History methimazole 5 mg tablet 5 mg PO DAILY 03/20/22 03/20/22 History Past Med/Surg History Medical History (Updated 03/20/22 @ 22:38 by ROSA Pleitez) Asthma WELL CONTROLLED Atrial fibrillation Initially presented in 2014 post-op with SBO. Spontaneously converted and anticoagulation d/c'd after 4 months. Reoccurred 02/2018, now on Eliquis. Bladder spasm Bowel obstruction (2014) Hypertension Hyperthyroidism On Methimazole, most recent TSH/T4 1.73/107 (WNL). Kidney stones Surgical History H/O dilation and curettage H/O exploratory laparotomy History of appendectomy History of bowel resection JUL 2015, BOWEL OBSTRUCTION History of cataract surgery B/L History of colonoscopy History of hysterectomy History of tonsillectomy Family History Mother Breast cancer Unknown Hypertension Brother Cardiac disorder Denies family history of Ovarian cancer Prostate cancer Myocardial infarction Colorectal cancer Social History Smoking Status: Never smoker Second Hand Exposure: No; Hx Alcohol Use: No Hx Substance Use: No Preferred Language: Andorran Communication Ability: Effective Visual Impairment: No Limitations Hearing Ability: Hard of Hearing Burlap Bag Sewer Required: No Beliefs That Will Affect Care: None marital status: Current Living Situation: Spouse current occupational status: retired How many Children do You have: 2 Feels Safe at Home: Yes Safety Concerns: Feels Safe At This Time Childhood Exposure to Second-Hand Smoke: No during the past year weight has: remained stable Dental Care, Regularly: No Physical Activity Frequency: Daily Seatbelt Use: always Sunscreen Use: Yes Assistive Devices: None Review of Systems Review of Systems: REVIEW OF SYSTEMS: Constitutional: No fever, sweats or chills Eyes: No diplopia, no worsening or blurred vision ENT: normal hearing, no trouble swallowing Respiratory: No cough, sputum, dyspnea at rest or on exertion Cardiovascular: (+) chest pain, palpitations, Abdomen: No pain, nausea, vomiting, diarrhea or constipation Musculoskeletal: No joint pain, calf pain, swelling Neurologic: No weakness, numbness/tingling, or balance problems Psychiatric: No anxiety or depression Skin: No rash or itch Physical Exam Physical Exam: PHYSICAL EXAM: General: awake, alert, no apparent distress Head: Normocephalic, atraumatic ENT: PERRL, EOMI, no pharyngeal exudate, mucous membranes moist Neuro: AAO x 3, speech clear and appropriate, strength intact bilaterally 5/5, sensation intact and equal all extremities and dermatomes, no pronator drift Chest: equal rise and fall of the chest, no accessory muscle use, no heaves or thrills, Clear to auscultation, on room air, Cardiac: irregular rate and rhythm, telemetry reviewed- afib, skin warm dry, cap refill <3 seconds, peripheral pulses +2 no JVD, no murmur, no edema GI: NABS x 4 quadrants, soft, nontender to palpation, no rebound, guarding or tenderness : Spontaneously voiding, no pain, no CVA tenderness, Extremities: Normal inspection, no peripheral edema or erythema, calfs nontender to palpation Psych: Normal mood and affect Skin: no rash or erythema Results & Data Results & Data ([facility]) Vital Signs (Past 12 Hours) Vital Signs Temp Pulse Pulse Resp BP BP Pulse Ox 03/20/22 20:58 91 H 16 143/89 H 95 03/20/22 15:50 97 03/20/22 15:34 36.7 C 83 16 156/78 H 96 O2 Del Method 03/20/22 20:58 Room Air 03/20/22 15:50 Room Air 03/20/22 15:34 Room Air Laboratory Results Abnormal lab results 03/20/22 03/20/22 Range/Units 15:53 15:53 Lymph # (Auto) 1.02 L (1.2-3.4) K/uL BUN 27 H (6-23) mg/dl Creatinine 1.33 H (0.6-1.2) mg/dl BUN/Creatinine Ratio 20.3 H (10-20) Calcium 10.7 H (8.5-10.1) mg/dl Troponin I High Sens 14.7 H (0-14) pg/ml Diagnostic Findings Chest X-Ray 03/20/22 15:34 XR chest 1V portable CLINICAL HISTORY: Chest Pain. COMPARISON STUDY: 10/18/2019 TECHNIQUE: 1 view of the chest FINDINGS: Single frontal view of the chest demonstrates the cardiomediastinal silhouette to be within normal limits. There is hyperinflation of the lungs with attenuation of the pulmonary vasculature peripherally characteristic of underlying chronic obstructive pulmonary disease. The lungs are clear of alveolar opacities. There is no evidence for pleural effusion. There is no evidence for vascular congestion. There is no acute osseous pathology. IMPRESSION: 1. No acute cardiopulmonary disease. Evidence for mild underlying COPD. ACT 112: Negative or not required by law. Electronically signed by: Óscar Scott M.D. 03/20/2022 5:15 PM Medications Administered Home Medications calcium carbonate 500 mg-vitamin D3 5 mcg (200 unit) tablet (Calcium 500 + D) 1 tab PO QAM 11/08/18 [History Confirmed 03/20/22] albuterol sulfate 90 mcg/actuation aerosol inhaler 2 puffs inhalation Q6H PRN shortness of breath or wheezing #3 Inhalers 03/22/20 [Rx Confirmed 03/20/22] mecobalamin (vitamin B12) 1,000 mcg chewable tablet 1,000 mcg PO DAILY #30 tabs 02/11/21 [Rx Confirmed 03/20/22] fluticasone propionate 100 mcg/actuation blister powder for inhalation (Flovent Diskus) 3 inh inhalation DAILY #4 Inhalers 03/20/21 [Rx Confirmed 03/20/22] diltiazem HCl 240 mg capsule,extended release 24 hr 240 mg PO DAILY #90 caps 07/25/21 [Rx Confirmed 03/20/22] loratadine 10 mg tablet (Claritin) 10 mg PO DAILY #30 tabs 09/04/21 [Rx Confirmed 03/20/22] hydrochlorothiazide 12.5 mg tablet 12.5 mg PO DAILY #90 tabs 10/25/21 [Rx Confirmed 03/20/22] losartan 50 mg tablet 50 mg PO BID #180 tabs 10/25/21 [Rx Confirmed 03/20/22] apixaban 5 mg tablet (Eliquis) 5 mg PO BID #180 tabs 12/27/21 [Rx Confirmed 03/20/22] cholecalciferol (vitamin D3) 50 mcg (2,000 unit) capsule 50 mcg PO DAILY #30 cap s 02/12/22 [Rx Confirmed 03/20/22] denosumab 60 mg/mL subcutaneous syringe (Prolia) 60 mg subcut .COMPLEX #1 mL 02/12/22 [Rx Confirmed 03/20/22] desmopressin 0.1 mg tablet 0.1 mg PO QPM 03/20/22 [History Confirmed 03/20/22] methimazole 5 mg tablet 5 mg PO DAILY 03/20/22 [History Confirmed 03/20/22] Active Medications Magnesium Sulfate/Dextrose (Magnesium Sulfate / D5w) 1 gm in 100 mls @ 50 mls/hr IV Q2H CHRISTIAN Stop: 03/21/22 01:59 Last Admin: 03/20/22 22:08 Dose: 50 mls/hr Magnesium Sulfate/Dextrose (Magnesium Sulfate / D5w) 1 gm in 100 mls @ 50 mls/hr IV Q2H CHRISTIAN Stop: 03/21/22 01:59 Last Admin: 03/20/22 22:08 Dose: 50 mls/hr Documented By: ASW Discontinued Medications Apixaban (Apixaban 5 Mg Tablet) 5 mg PO ONE ONE Stop: 03/20/22 21:46 Last Admin: 03/20/22 22:07 Dose: 5 mg Documented By: ASW Aspirin (Aspirin Chew 324 Mg) 324 mg PO NOW STA Stop: 03/20/22 21:54 Last Admin: 03/20/22 22:07 Dose: 324 mg Documented By: ASW ECG Additional Comments: Atrial fibrillation Right bundle branch block Abnormal ECG When compared with ECG of 18-OCT-2019 17:11, Atrial fibrillation has replaced Sinus rhythm Code Status & VTE Plan Code Status CODE: DNR/DNI VTE: SCDS, Eliquis VTE Prophylaxis Plan VTE Prophylaxis will be ordered: Yes Supervising Physician Co-Signing Physician Notes Patient seen and examined, chart reviewed, case discussed with ROSA Licona and I agree with the assessment and plan as above. PG Care Time/CCT Total # of Minutes Spent Total Time Spent with Patient: Total time spent is greater than 50% in coordination of care (as documented) at patient's floor/unit and/or counseling patient: Coding Level of Care Code INT OBSERVATION CARE 70M LVL 3 Diagnoses Chest pain R07.9 Chest pain type: unspecified Paroxysmal atrial fibrillation I48.0 ZHANE (acute kidney injury) N17.9 Hyperthyroidism E05.90 Asthma J45.909 HTN (hypertension) I10 Hypercalcemia E83.52 Bladder stones N21.0 (1) Chest pain Chest pain type: unspecified Qualified Code(s): R07.9 - Chest pain, unspecified
[2022-03-20] MEDS: MAGNESIUM SULFATE / D5W 1 GM/100 ML BAG IV SCH (22:08)
[2022-03-20] MEDS ORDERED: ACETAMINOPHEN 325 MG TAB PO PRN (22:33)
[2022-03-20] MEDS ORDERED: ALBUTEROL HFA 8 GM INHALER INH PRN (22:33)
[2022-03-20] MEDS ORDERED: LACTATED RINGER'S 1,000 ML IV ONE (22:39)
[2022-03-20 22:42] LABS: Magnesium 1.8 mg/dl (1.7-2.4)
[2022-03-21] MEDS: MAGNESIUM SULFATE / D5W 1 GM/100 ML BAG IV SCH (01:38)
[2022-03-21 07:30] LABS: Basophils # (auto) 0.05 K/uL (0-0.2); Basophils % (auto) 1.1 %; Eosinophils # (auto) 0.09 K/uL (0-0.50); Eosinophils % (auto) 2.1 %; Hematocrit (blood only) 40.9 % (34.1-44.9); Immature Granulocytes # (auto) 0.01 K/uL (0.00-0.02); Immature Granulocytes % (auto) 0.2 %; Lymphocytes # (auto) 1.34 K/uL (1.2-3.4); Lymphocytes % (auto) 30.6 %; Mean Corpuscular Hgb Conc 31.8 g/dL (32.0-36.0); Mean Corpuscular Volume 97.4 fL (80.0-100.0); Mean Platelet Volume 10.9 fL (9.4-12.3); Monocytes # (auto) 0.48 K/uL (0.24-0.82); Neutrophils # (auto) 2.41 K/uL (1.4-6.5); Platelet Count 186 K/uL (130-400); RDW Coefficient of Variation 12.5 % (11.5-14.5); RDW Standard Deviation 44.6 fL (36.4-46.3); White Blood Count 4.38 K/ul (4.8-10.8)
[2022-03-21 07:55] LABS: Troponin I High Sensitivity 15.1 pg/ml (0-14)
[2022-03-21 08:01] LABS: BUN Creatinine Ratio 22.1 (10-20); Calcium 9.5 mg/dl (8.5-10.1); Creatinine Clr Calc Pharmacy 39.2 ml/min; Est GFR (African American) 56.3 ml/min; Est GFR (Non-African American) 48.6 ml/min; Magnesium 2.3 mg/dl (1.7-2.4); Potassium 4.1 mmol/L (3.5-5.1)
[2022-03-21] MEDS ORDERED: dilTIAZem HCL 240 MG CAPCR PO SCH (09:00)
[2022-03-21] MEDS ORDERED: CALCIUM 600MG + VIT D 400 IU TAB PO SCH (09:00)
[2022-03-21] MEDS ORDERED: CHOLECALCIFEROL 1,000 UNITS 25 MCG TAB PO SCH (09:00)
[2022-03-21] MEDS ORDERED: LORATADINE 10 MG TAB PO SCH (09:00)
[2022-03-21] MEDS ORDERED: methIMAzole 5 MG TABLET PO SCH (09:00)
[2022-03-21] MEDS ORDERED: CYANOCOBALAMIN (B-12) 500 MCG TABLET PO SCH (09:00)
[2022-03-21] MEDS ORDERED: LOSARTAN POTASSIUM 50 MG TAB PO SCH (09:00)
[2022-03-21] MEDS ORDERED: FLUTICASONE FUROATE 200MCG 14 PUFFS/INHALER INH SCH (09:00)
[2022-03-21] MEDS ORDERED: APIXABAN 5 MG TABLET PO SCH (09:00)
[2022-03-21] MEDS ORDERED: hydroCHLOROthiazide 25 MG TAB PO SCH (09:00)
--- NOTE | 2022-03-21 10:25 | Cardiology Consultation ---
Date of Consultation March 21, 2022 Assessment & Plan (1) Chest pressure: (2) Paroxysmal atrial fibrillation: (3) On continuous oral anticoagulation: (4) Aortic insufficiency: (5) Left ventricular hypertrophy: Plan 1. Chest pressure: She describes a squeezing sensation in her chest which lasted about 8-1/2 hours before and after presentation. She had no electrocardiographic changes, her cardiac enzymes were very slightly elevated but without any trend and I think it is unlikely that this represents myocardial ischemia. She has had a negative stress test in the past, although it has been several years. My recommendation would be to repeat the echocardiogram and if she does not have any wall motion abnormalities and if her left ventricular function is normal I would not repeat stress testing, especially during atrial fibrillation. 2. Paroxysmal atrial fibrillation: She has a history going back at least to 2014 of atrial fibrillation, this has been documented on several occasions due to presentation with shortness of breath but not palpitations. She may have mo re of it than we realize, but as long as she remains on anticoagulation and her rate is controlled and she remains asymptomatic for the most part this is acceptable. Her rate does seem well controlled on her current regimen. 3. Anticoagulation: She should remain on anticoagulation, she is on Eliquis as an outpatient and she is on the 5 mg dose which is correct based on her weight and kidney function. I would continue it. 4. Aortic insufficiency: She has a history of mild aortic insufficiency, that is not clearly audible but we will evaluate that with an echocardiogram. 5. Left ventricular hypertrophy: She has a history of left ventricular hypertrophy which we will evaluate by echocardiography. History of Present Illness Reason for Consultation: Atrial fibrillation, chest discomfort Attending Physician: Adwoa Garcia MD History of Present Illness This is an 86-year-old woman with a history of hypertension and hyperthyroidism as well as paroxysmal atrial fibrillation. She also has longstanding right bundle branch block but on echocardiography February 2018 on a stress echo her left ventricular function was normal with m moderate ild left ventricular hypertrophy and mild aortic regurgitation. The stress echo was negative for ischemia. She has a long history of paroxysmal atrial fibrillation which appears to be symptomatic although not with palpitations, she does not feel palpitations but when she presents with shortness of breath and dyspnea on exertion she has been found to be in atrial fibrillation. At times her rates have been rapid, she presented with dyspnea on exertion in September 2019 and she was in atrial fibrillation with a heart rate in the 90s. Her diltiazem was increased at that time and converted to sinus rhythm several days later although I am not sure that was documented. She has not had any symptomatic recurrence until the day of admission. On March 20, 2022 she was working in her kitchen preserving corn when she suddenly felt a little lightheaded and short of breath. This occurred at around 10 AM. At around noon she took her blood pressure and noted that the indicator said she was in an irregular rhythm. At around 1:00 PM she developed a squeezing sensation in her chest and came into the emergency room. She was admitted and around 9:30 in the evening this discomfort resolved. She is very active and has never had this discomfort before, including with fairly strenuous activity such as mowing the lawn. She recalls having the shortness of breath in the past when she was in atrial fibrillation but does not recall having the chest discomfort. In the emergency room she had 3 troponins done which were all around 15. She has not had any further chest discomfort overnight, she feels back to normal (although remains in atrial fibrillation) and has no complaints today. Allergies Allergy/AdvReac Type Severity Reaction Status Date / Time amoxicillin Allergy Unknown RASH Verified 03/20/22 21:40 clavulanic acid Allergy Unknown RASH Verified 03/20/22 21:40 clindamycin Allergy Unknown RASH Verified 03/20/22 21:40 Sulfa (Sulfonamide Allergy Unknown RASH Verified 03/20/22 21:40 Antibiotics) cephalexin Allergy Unknown Verified 03/20/22 21:40 doxycycline Allergy Unknown Verified 03/20/22 21:40 meperidine [From Demerol] Allergy Unknown Verified 03/20/22 21:40 benzonatate AdvReac Unknown SICK IN Verified 03/20/22 21:40 STOMACH codeine AdvReac Unknown SICK IN Verified 03/20/22 21:40 STOMACH levofloxacin AdvReac Unknown SICK IN Verified 03/20/22 21:40 STOMACH Home Medications Medication Instructions Recorded Confirmed Type calcium carbonate 500 mg-vitamin 1 tab PO QAM 11/08/18 03/20/22 History D3 5 mcg (200 unit) tablet (Calcium 500 + D) albuterol sulfate 90 mcg/actuation 2 puffs inhalation Q6H PRN 03/22/20 03/20/22 Rx aerosol inhaler shortness of breath or wheezing #3 Inhalers mecobalamin (vitamin B12) 1,000 1,000 mcg PO DAILY #30 tabs 02/11/21 03/20/22 Rx mcg chewable tablet fluticasone propionate 100 3 inh inhalation DAILY #4 Inhalers 03/20/21 03/20/22 Rx mcg/actuation blister powder for inhalation (Flovent Diskus) diltiazem HCl 240 mg 240 mg PO DAILY #90 caps 07/25/21 03/20/22 Rx capsule,extended release 24 hr loratadine 10 mg tablet (Claritin) 10 mg PO DAILY #30 tabs 09/04/21 03/20/22 Rx hydrochlorothiazide 12.5 mg tablet 12.5 mg PO DAILY #90 tabs 10/25/21 03/20/22 Rx losartan 50 mg tablet 50 mg PO BID #180 tabs 10/25/21 03/20/22 Rx apixaban 5 mg tablet (Eliquis) 5 mg PO BID #180 tabs 12/27/21 03/20/22 Rx cholecalciferol (vitamin D3) 50 50 mcg PO DAILY #30 caps 02/12/22 03/20/22 Rx mcg (2,000 unit) capsule denosumab 60 mg/mL subcutaneous 60 mg subcut .COMPLEX #1 mL 02/12/22 03/20/22 Rx syringe (Prolia) desmopressin 0.1 mg tablet 0.1 mg PO QPM 03/20/22 03/20/22 History methimazole 5 mg tablet 5 mg PO DAILY 03/20/22 03/20/22 History Patient History Medical History (Updated 03/21/22 @ 10:35 by Guy Mcnamara MD) Asthma WELL CONTROLLED Atrial fibrillation Initially presented in 2014 post-op with SBO. Spontaneously converted and anticoagulation d/c'd after 4 months. Reoccurred 02/2018, now on Eliquis. Bladder spasm Bowel obstruction (2014) Hypertension Hyperthyroidism On Methimazole, most recent TSH/T4 1.73/1/07 (WNL). Kidney stones Surgical History H/O dilation and curettage H/O exploratory laparotomy History of appendectomy History of bowel resection JUL 2015, BOWEL OBSTRUCTION History of cataract surgery B/L History of colonoscopy History of hysterectomy History of tonsillectomy Family History Mother Breast cancer Unknown Hypertension Brother Cardiac disorder Denies family history of Ovarian cancer Prostate cancer Myocardial infarction Colorectal cancer Social History Smoking Status: Never smoker Second Hand Exposure: No; Hx Alcohol Use: No Hx Substance Use: No Preferred Language: Kazakh Communication Ability: Effective Visual Impairment: No Limitations Hearing Ability: Hard of Hearing Technical Administrator Required: No Beliefs That Will Affect Care: None marital status: Current Living Situation: Spouse current occupational status: retired How many Children do You have: 2 Feels Safe at Home: Yes Safety Concerns: Feels Safe At This Time Childhood Exposure to Second-Hand Smoke: No during the past year weight has: remained stable Dental Care, Regularly: No Physical Activity Frequency: Daily Seatbelt Use: always Sunscreen Use: Yes Assistive Devices: None Review of Systems Review of Systems: All systems reviewed & are unremarkable except as noted in HPI & below Physical Exam Physical Exam: Constitutional: Alert, cooperative and in no distress. HEENT: Unremarkable Neck: No jugular venous distention, carotid pulses are irregular but otherwise normal and equal bilaterally without bruits. Pulmonary: Clear to auscultation bilaterally. Cardiac: Irregular rhythm with no murmur, gallop or rub. Abdomen: Soft, nontender with normal bowel sounds. Extremities: No edema. Distal pulses intact. Neurologic: No focal findings. Gait is steady. Skin: No rash, ecchymoses or petechiae. Results & Data ([facility]) Vital Signs (Past 12 Hours) Vital Signs Temp Pulse Pulse Pulse Resp BP BP 03/21/22 07:44 36.7 C 60 18 133/73 03/21/22 04:00 36.4 C L 55 L 18 145/53 H 03/21/22 01:20 75 03/21/22 01:21 03/21/22 01:21 36.5 C 69 16 158/85 H 03/20/22 23:34 76 16 150/78 H 03/20/22 22:39 36.9 C 67 19 172/75 H Pulse Ox O2 Del Method 03/21/22 07:44 96 Room Air 03/21/22 04:00 94 Room Air 03/21/22 01:20 03/21/22 01:21 Room Air 03/21/22 01:21 96 Room Air 03/20/22 23:34 95 Room Air 03/20/22 22:39 97 Room Air Laboratory Results Cardiac Enzymes 03/20/22 03/20/22 03/21/22 Range/Units 15:53 22:12 07:02 AST 16 (13-39) U/L Troponin I High Sens 14.7 H 15.0 H 15.1 H (0-14) pg/ml Coagulation 03/20/22 Range/Units 15:53 PT 11.1 (9.0-12.0) Seconds APTT 29.9 (21.0-31.0) Seconds CBC 03/20/22 03/21/22 Range/Units 15:53 07:02 WBC 6.70 4.38 L (4.8-10.8) K/ul RBC 4.46 4.20 (3.93-5.22) M/uL Hgb 14.1 13.0 (12.0-16.0) g/dl Hct 43.5 40.9 (34.1-44.9) % Plt Count 188 186 (130-400) K/uL Neut # (Auto) 5.04 2.41 (1.4-6.5) K/uL Lymph # (Auto) 1.02 L 1.34 (1.2-3.4) K/uL [place] # (Auto) 0.55 0.48 (0.24-0.82) K/uL Eos # (Auto) 0.03 0.09 (0-0.50) K/uL Baso # (Auto) 0.05 0.05 (0-0.2) K/uL Comprehensive Metabolic Panel 03/20/22 03/21/22 Range/Units 15:53 07:02 Sodium 137 140 (136-145) mmol/L Potassium 4.2 4.1 (3.5-5.1) mmol/L Chloride 101 104 (98-107) mmol/L Carbon Dioxide 29 32 (21-32) mmol/L BUN 27 H 23 (6-23) mg/dl Creatinine 1.33 H 1.04 (0.6-1.2) mg/dl Glucose 95 87 (70-99(Fasting)) mg/dl Calcium 10.7 H 9.5 (8.5-10.1) mg/dl AST 16 (13-39) U/L ALT 10 (7-52) U/L Alkaline Phosphatase 70 (34-104) U/L Total Protein 7.5 (6.0-8.3) gm/dl Albumin 4.3 (3.4-5.0) gm/dl Intake and Output 03/20/22 03/21/22 03/21/22 22:59 06:59 14:59 Intake Total 538.667 / 538.667 Balance 538.667 / 538.667 Intake: IV 418.667 / 418.667 Lactated Ringer's 1,000 ml @ 80 218.667 / 218.667 mls/hr IV .[id number] ONE Rx#: [id number] Magnesium Sulfate / D5w 1 gm In 200 / 200 100 ml @ 50 mls/hr IV Q2H [facility] Rx#:[id number] Oral 120 / 120 Other: Weight 67.5 kg 67.5 kg Weight Measurement Method Chair Scale Standing Scale Diagnostic Findings Telemetry: Atrial fibrillation since presentation, initially heart rates averaging around 80 but less than 100, overnight dropping until this morning she is averaging around 65-70 with no significant bradycardia or tachycardia. Electrocardiogram: On presentation Atrial fibrillation with a heart rate of 88 bpm, right bundle branch block. No acute changes. PG Care Time/CCT Total # of Minutes Spent Total Time Spent with Patient: Total time spent is greater than 50% in coordination of care (as documented) at patient's floor/unit and/or counseling patient: Coding Level of Care Code 37467 Initial Inpt Care Lvl 3 Diagnoses Chest pressure R07.89 Paroxysmal atrial fibrillation I48.0 On continuous oral anticoagulation Z79.01 Aortic insufficiency I35.1 Cardiac valve disease etiology: etiology unspecified Left ventricular hypertrophy I51.7 (1) Aortic insufficiency Cardiac valve disease etiology: etiology unspecified Qualified Code(s): I35.1 - Nonrheumatic aortic (valve) insufficiency
--- NOTE | 2022-03-21 13:53 | Discharge Summary ---
Date of Service March 21, 2022 Admission HPI Per Admitting Provider [id number] YOF with medical history of: PAF(on Dilt and Eliquis), Hyperthyroidism (on methimazole), asthma, osteopenia, hypercalcemia, exertional chest pressure. Patient comes to the EMD today for complaint of left breast pain with dyspnea. This occurred at around 1300 today while patient was putting corn into her freezer. This was associated with dyspnea and some radiation to her neck. She checked her blood pressure and noted it to be low at 104 and her HR was 62, she laid down because she started to feel some fatigue, she woke up at around 1430 and felt her pulse was irregular so she felt her radial pulse and noted it to be "skipping beats and faster", she again checked her HR and BP this was 120/60s with HR to 70s. She then called her Marketing Information Analyst's office and was referred to the EMD by the nurse at the office. Patient came to the EMD she was triaged and had routine labs done were done to include HScTNI with a ECG. She was noted to be in Afib her HScTNI was 14.7. Hospitalist service was called for admission. She was then given 324 mg of Aspirin by the EMD. She is no longer having this pain and it resolved about an hour ago (1999). She also missed her evening dose of Eliquis so this will be given now. Patient reports that she was out yesterday at [employer] walking around and carrying some bags and had no dyspnea or chest pain with that. Will give her 2gm of magnesium, check TSH, repeat HScTNI. In reviewing her previous notes her symptoms are consistent with her going into atrial fibrillation. Patient will be observed overnight to trend her HScTNI and symptoms. She is rate controlled and on anticoagulation. COVID test on admission is: NEGATIVE Principal Diagnosis Atrial fibrillation, Chest pain Discharge Exam Vitals reviewed Gen: [AAOx3, NAD] HEENT: [anicteric sclerae, EOMI] CV: [irreg irreg, normal rate no mgr nl S1S2] Pulm: [CTAB no wcr] Abd: [+BS soft NT ND no masses or hernias] Ext: [no edema, 2+ DP pulses] Skin: [no rashes, warm/dry] Neuro: [full strength throughout] Discharge Data Allergies Allergy/AdvReac Type Severity Reaction Status Date / Time amoxicillin Allergy Unknown RASH Verified 03/20/22 21:40 clavulanic acid Allergy Unknown RASH Verified 03/20/22 21:40 clindamycin Allergy Unknown RASH Verified 03/20/22 21:40 Sulfa (Sulfonamide Allergy Unknown RASH Verified 03/20/22 21:40 Antibiotics) cephalexin Allergy Unknown Verified 03/20/22 21:40 doxycycline Allergy Unknown Verified 03/20/22 21:40 meperidine [From Demerol] Allergy Unknown Verified 03/20/22 21:40 benzonatate AdvReac Unknown SICK IN Verified 03/20/22 21:40 STOMACH codeine AdvReac Unknown SICK IN Verified 03/20/22 21:40 STOMACH levofloxacin AdvReac Unknown SICK IN Verified 03/20/22 21:40 STOMACH Consultations 03/20/22 21:04 ED Decision to Admit Stat 03/21/22 08:36 Consult Cardiology Routine Ordered Studies ECHO Hospital Course (1) Chest pain: Pain under left breast with radiation to neck, lasted 8 hours and all serial troponins stable at 14--> rules out acute coronary syndrome ECHO without WMAs, and with LVH Resolved on own and no recurrence Rates in Afib now 50-60s and no pains. SUspect rate related chest pain? 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.33 - LR overnight for one liter - mild dehydration likely hog tender improved to normal can resume losartan (4) Hyperthyroidism: Continue Methimazole - TSH normal (5) Asthma: Well controlled with chronic cough - she states she hasn't used her Albuterol - stable symptoms - Continue Loratadine (6) HTN (hypertension): Controlled -continue ARB continue HCTZ (7) Hypercalcemia: Chronic follows with endocrinology - cionized calcium here normal after IVFs likely slightly high on admission due to ZHANE, dehydration - PTH 11/07/21 was 65.9 and at same level - Continue with HCTZ - likely mildly dehydrated as well Plan Dispo-stable for dc to home Total Time Total Time Spent Total Time Spent (In Minutes): 35 min Total Time Includes: Examination of the Patient, Discharge Planning, Medication Reconciliation and Communication With Other Providers (Cardiology) Discharge Plan Discharge Items Patient Disposition: Home - Self-Care Reason For Visit: Chest pain Discharge Diagnosis: Atrial fibrillation, chest pain Condition on Discharge: Good Activity: Resume your previous activity Non-emergency contact: Primary Care Provider and Marketing Information Analyst Call non-emergency contact if: you have any medication questions, your symptoms worsen, your pain is not controlled, your pain is worsening, your pain is unusual for you and your pain is concerning for you Follow-up/Referrals: Rocky Norton MD [Primary Care Provider] - (Follow up within 1-2 weeks) Diet: Heart Healthy Addtl Attending Provider Instructions: You were admitted after having chest pain that was likely related to your atrial fibrillation. Your heart rates were slightly elevated at first but improved after being given IV fluids and magnesium. You may have been slightly dehydrated and this brought on your atrial fibrillation. You can continue to take a low dose of a magnesium supplement and ensure you are staying hydrated especially on hot days. Please continue all your other medications as before. Pending Studies at Discharge: No Stand-Alone Forms: My [facility] Medications and DC Order Prescriptions: New magnesium 250 mg tablet 250 mg PO DAILY Qty: 30 0RF Rx Instructions: OTC Continued mecobalamin (vitamin B12) 1,000 mcg tablet,chewable 1,000 mcg PO DAILY Qty: 30 0RF diltiazem HCl 240 mg capsule,extended release 24hr 240 mg PO DAILY Qty: 90 3RF loratadine [Claritin] 10 mg tablet 10 mg PO DAILY Qty: 30 3RF losartan 50 mg tablet 50 mg PO BID Qty: 180 3RF hydrochlorothiazide 12.5 mg tablet 12.5 mg PO DAILY Qty: 90 2RF Eliquis 5 mg tablet 5 mg PO BID Qty: 180 3RF albuterol sulfate 90 mcg/actuation HFA aerosol inhaler 2 puffs INH Q6H PRN (Reason: shortness of breath or wheezing) Qty: 3 3RF cholecalciferol (vitamin D3) 50 mcg (2,000 unit) capsule 50 mcg PO DAILY Qty: 30 0RF Prolia 60 mg/mL syringe 60 mg subcut .COMPLEX Qty: 1 1RF Rx Instructions: 60 mg subcut every 6 months; Flovent Diskus 100 mcg/actuation blister with device 3 inh INHALATION DAILY Qty: 4 3RF calcium carbonate-vitamin D3 [Calcium 500 + D] 500 mg(1,250mg) -200 unit Tablet 1 tab PO QAM methimazole 5 mg tablet 5 mg PO DAILY desmopressin 0.1 mg tablet 0.1 mg PO QPM Discharge Orders: Discharge Order (Routine); Ordered 03/21/22 Ordered By: Adwoa Garcia Admission Data Admit Date/Time: 03/20/22 21:57 Attending Provider: Adwoa Garcia Admit Provider: Laney Marcial Primary Care Provider: Rocky Norton Other Providers: Laney Marcial ; Mckay Santillan Coding Level of Care Code D/C DAY MANAGEMENT >30 MINS Diagnoses Chest pain R07.9 Chest pain type: unspecified Paroxysmal atrial fibrillation I48.0 ZHANE (acute kidney injury) N17.9 Hyperthyroidism E05.90 Asthma J45.909 HTN (hypertension) I10 Hypercalcemia E83.52
[2022-03-21] MEDS ORDERED: DESMOPRESSIN ACETATE 0.1 MG TAB PO SCH (21:00)
--- NOTE | 2022-03-21 21:17 | Electrocardiogram Report ---
Test Reason : Blood Pressure : / mmHG Vent. Rate : 071 BPM Atrial Rate : 326 BPM P-R Int : 000 ms QRS Dur : 136 ms QT Int : 468 ms P-R-T Axes : 269 075 037 degrees QTc Int : 508 ms Atrial flutter with variable A-V block Right bundle branch block Abnormal ECG When compared with ECG of 20-MAR-2022 15:41, Atrial flutter has replaced Atrial fibrillation T wave inversion less evident in Anterior leads Confirmed by Guy Mcnamara ([id number]) on 03/21/2022 9:17:12 PM Referred By: Justin Thornton Confirmed By:Guy Mcnamara
--- NOTE | 2022-03-21 21:59 | XCELERA ---
[id number]
== END 2022-03-21 14:50 | disposition home or self-care (01) ==
LOC: ED 15:21 → EDINP 20:12 → SUATTDRO 20:12 → INTOOBSV 20:12 → 2N 22:10

== ENCOUNTER 2023-05-31 07:13 | Inpatient (IN) ==
[2023-05-31] MEDS ORDERED: MoRPHine SULFATE 10 MG/ML CARP/VIAL ONE (07:25)
[2023-05-31] MEDS ORDERED: MoRPHine SULFATE 4 MG/ML 1 ML CARP\\VIAL IV STA (07:29)
[2023-05-31] MEDS ORDERED: FAMOTIDINE 20MG IV PUSH 20 MG/5 ML SYR IV STA (07:29)
[2023-05-31] MEDS ORDERED: LORazepam 2 MG/1 ML VIAL IV STA (07:29)
[2023-05-31] MEDS ORDERED: ACETAMINOPHEN 1,000 MG/100 ML VIAL IV STA (07:30)
[2023-05-31] MEDS ORDERED: SODIUM CHLORIDE 0.9% 1,000 ML IV SCH (07:30)
[2023-05-31 07:54] LABS: Basophils # (auto) 0.04 K/uL (0.00-0.20); Basophils % (auto) 0.4 %; Eosinophils # (auto) 0.02 K/uL (0.00-0.50); Eosinophils % (auto) 0.2 %; Hematocrit (blood only) 44.1 % (37.0-47.0); Hemoglobin 14.5 g/dl (12.0-16.0); Immature Granulocytes # (auto) 0.02 K/uL (0.01-0.20); Immature Granulocytes % (auto) 0.2 %; Lymphocytes # (auto) 1.05 K/uL (1.20-3.40); Lymphocytes % (auto) 11.6 %; Mean Corpuscular Hgb Conc 32.9 g/dL (32.0-36.0); Mean Corpuscular Volume 97.4 fL (80.0-100.0); Mean Platelet Volume 11.4 fL (9.4-12.4); Monocytes # (auto) 0.56 K/uL (0.11-0.59); Monocytes % (auto) 6.2 %; Neutrophils # (auto) 7.37 K/uL (1.40-6.50); Neutrophils % (auto) 81.4 %; Platelet Count 200 K/uL (130-400); RDW Coefficient of Variation 12.6 % (11.5-14.5); RDW Standard Deviation 45.2 fL (36.4-46.3); Red Blood Count 4.53 M/uL (4.20-5.40); White Blood Count 9.06 K/ul (4.8-10.8)
[2023-05-31 08:17] LABS: Albumin Globulin Ratio 1.4 (0.9-2); Albumin Level 4.2 gm/dl (3.4-5.0); BUN Creatinine Ratio 20.4 (10-20); Bilirubin,Total 0.5 mg/dl (0.2-1.0); Calcium 10.6 mg/dl (8.6-10.3); Creatinine Clr Calc Pharmacy 28.2 ml/min; Est GFR (African American) 38.4 ml/min; Est GFR (Non-African American) 33.1 ml/min; Globulin 3.1 gm/dl (2.5-4.0); Potassium 4.1 mmol/L (3.5-5.1); Total Protein 7.3 gm/dl (6.0-8.3)
[2023-05-31 08:22] LABS: Troponin I High Sensitivity 8.4 pg/ml (0-14)
--- NOTE | 2023-05-31 08:35 | Emergency Department Note ---
Impression & Plan Abdominal pain, Nausea & vomiting, SBO (small bowel obstruction) ED Provider Note ED Provider Note NAME: ALLAN PÉREZ AGE:87 SEX: Female : 1935 ARRIVES VIA: EMS INFORMANT: Patient ED PROVIDER(s): Sunshine Young DO CHIEF COMPLAINT: Abdominal pain HPI: This is an 87-year-old female presents emerged department via EMS due to concern for abdominal pain as well as accompanying nausea and vomiting. Patient states pain began around midnight when she was heading to bed. She states she felt in her usual state of health yesterday and had no concerns. She denies any recent change in diet or medication. She states pain is "all over" but otherwise nonradiating. She states she also feels as though she is distended. She states she vomited 3 times due to the worsening nausea, but did not notice any blood in the vomit. Patient states she had a normal bowel movement yesterday morning although smaller compared to normal. He states symptoms feel similar to prior bowel obstruction. She states her last bowel obstruction was in 2014. She denies fevers or chills. Denies any recent change in urine. Patient given morphine by EMS prior to arrival. PAST MEDICAL HISTORY:See Below PAST SURGICAL HISTORY:See Below FAMILY HISTORY:See Below SOCIAL HISTORY:See Below HOME MEDICATIONS:See Below ALLERGIES:See Below VITALS:See Below PHYSICAL EXAMINATION: GENERAL: alert, uncomfortable appearing, well nourished, mild distress, non- toxic EYE EXAM: normal conjunctiva, PERRL and EOM's grossly intact OROPHARYNX: no exudate, no erythema, lips, buccal mucosa, and tongue normal and mucous membranes are moist NECK: supple, no nuchal rigidity, no adenopathy, non-tender LUNGS: Clear to auscultation. Normal chest wall mechanics, no w/r/r HEART: no murmurs, S1 normal and S2 normal ABDOMEN: abdomen soft, generalized tenderness with palpation, slightly hyperactive bowel sounds, no masses, no rebound or guarding. Mild tympany with percussion BACK: Back is symmetrical on inspection and there is no deformity, no midline tenderness, no CVA tenderness. SKIN: no rashes, petechiae, orbruising UPPER EXTREMITIES: upper extremities are grossly normal. FROM, nml pulses b/l. LOWER EXTREMITIES: No pitting edema. FROM, nml pulses b/l. NEURO EXAM: Normal sensorium, cranial nerves II-XII grossly intact, normal speech, no facial droop,nogross weakness of arms, no gross weakness of legs. Gross sensation intact. No ataxia. Vital Signs: reviewed and remarkable Differential Diagnosis: SBO, perf, GI bleed, mesenteric ischemia, viral syndrome, constipation, medication adr, PUD, ACS, AAA, dissection, UTI, as well as others were considered MEDICAL DECISION MAKING: THis is an elderly female who presents with c/o abdominal pain that began overnight. She was afebrile and VS stable. Labs drawn and sent, IV estab lished, EKG and CXR performed and interpreted at bedside, and patient placed on telemetry. She was given IV morphine, IV tylenol, IV pepcid, IV ativan, and IVF. She was sent for CT imaging which revealed SBO which patient was highly suspicious of based on her pain feeling similar to a prior episode. Labs were reassuring. Case discussed with [facility]ist team for additional evaluation and mgmt. Consultation(s): 1020: Discussed with BRIDGER Granger with [facility]ist team. ER Treatment Provided: See below Diagnostics Interpreted By Me: -ECG: a.fib at 76, nml axis, RBBB, nonspecific ST/T wave changes -Cardiac Monitoring: An order was placed for continuous cardiac monitoring. The monitor shows a rate of 88 in a.fib. -Laboratory studies: As stated above and show below. -Imaging studies: [] Triage Nursing Note Reviewed Prior/Outside Records Reviewed - prior DC summary reviewed Past Med/Surg History Medical History ZHANE (acute kidney injury) Asthma WELL CONTROLLED Atrial fibrillation Initially presented in 2014 post-op with SBO. Spontaneously converted and anticoagulation d/c'd after 4 months. Reoccurred 02/2018, now on Eliquis. Bladder spasm Bowel obstruction (2014) Chest pressure Hypertension Hyperthyroidism On Methimazole, most recent TSH/T4 1.73/1/07 (WNL). Kidney stones Surgical History H/O dilation and curettage H/O exploratory laparotomy History of appendectomy History of bowel resection JUL 2015, BOWEL OBSTRUCTION History of cataract surgery B/L History of colonoscopy History of hysterectomy History of tonsillectomy Family History Mother Breast cancer Unknown Hypertension Brother Cardiac disorder Denies family history of Ovarian cancer Prostate cancer Myocardial infarction Colorectal cancer Social History Smoking Status: Never smoker Second Hand Exposure: No; Do You Dip or Chew Tobacco: No; Hx Alcohol Use: No Hx Substance Use: No Preferred Language: Macedonian Communication Ability: Effective Visual Impairment: No Limitations Hearing Ability: Hard of Hearing Cash Clerk Required: No Beliefs That Will Affect Care: None marital status: Current Living Situation: Spouse current occupational status: retired How many Children do You have: 2 Feels Safe at Home: Yes Childhood Exposure to Second-Hand Smoke: No Diet: regular during the past year weight has: remained stable Dental Care, Regularly: No Physical Activity Frequency: Daily Seatbelt Use: always Sunscreen Use: Yes Assistive Devices: None Allergies Allergies Allergy/AdvReac Type Severity Reaction Status Date / Time ondansetron [From Zofran] Allergy Intermediate Nausea Unverified 05/31/23 17:16 amoxicillin Allergy Unknown RASH Verified 05/14/23 13:28 clavulanic acid Allergy Unknown RASH Verified 05/14/23 13:28 clindamycin Allergy Unknown RASH Verified 05/14/23 13:28 Sulfa (Sulfonamide Allergy Unknown RASH Verified 05/14/23 13:28 Antibiotics) cephalexin Allergy Unknown Verified 05/14/23 13:28 doxycycline Allergy Unknown Verified 05/14/23 13:28 meperidine [From Demerol] Allergy Unknown Verified 05/14/23 13:28 pantoprazole AdvReac Intermediate Vomiting Verified 05/14/23 13:28 benzonatate AdvReac Unknown SICK IN Verified 05/14/23 13:28 STOMACH codeine AdvReac Unknown SICK IN Verified 05/14/23 13:28 STOMACH levofloxacin AdvReac Unknown SICK IN Verified 05/14/23 13:28 STOMACH Home Meds Home Medications Medication Instructions Recorded Confirmed desmopressin 0.1 mg tablet 0.1 mg PO QPM 03/20/22 05/31/23 Previous Rx's Medication Instructions Recorded mecobalamin (vitamin B12) 1,000 1,000 mcg PO DAILY #30 tabs 02/11/21 mcg chewable tablet cholecalciferol (vitamin D3) 50 50 mcg PO DAILY #30 caps 02/12/22 mcg (2,000 unit) capsule magnesium 250 mg tablet 250 mg PO DAILY #30 tabs 03/21/22 nitroglycerin 0.3 mg sublingual 0.3 mg sublingual Q5M PRN chest 05/26/22 tablet pain #30 tabs diltiazem HCl 240 mg 240 mg PO DAILY #90 caps 07/02/22 capsule,extended release 24 hr losartan 50 mg tablet 50 mg PO DAILY #180 tabs 08/15/22 apixaban 5 mg tablet (Eliquis) 5 mg PO BID #180 tabs 10/28/22 fluticasone propionate 50 1 spray intranasal DAILY #3 12/24/22 mcg/actuation nasal Inhalers spray,suspension (Allergy Relief (fluticasone)) pantoprazole 40 mg tablet,delayed 40 mg PO DAILY #90 tabs 12/24/22 release hydrochlorothiazide 12.5 mg tablet 12.5 mg PO DAILY #90 tabs 02/02/23 denosumab 60 mg/mL subcutaneous 60 mg subcut .COMPLEX #1 mL 03/26/23 syringe (Prolia) methimazole 5 mg tablet 5 mg PO DAILY #90 tabs 05/28/23 Results & Data (ED) Vital Signs Vital Signs - 24 hr 05/31/23 07:29 05/31/23 08:06 05/31/23 09:30 Temperature 36.9 C Temperature Source Oral Pulse Rate 93 H 90 68 Pulse Rate from SpO2 Sensor 72 Respiratory Rate 22 18 Respiratory Depth Normal Respiratory Pattern Regular Blood Pressure 149/98 H 133/81 Blood Pressure Mean 115 98 Pulse Oximetry 94 95 Oxygen Delivery Method Room Air Sepsis Recent Fever Within 48 Hours No Sepsis New/Unexplained Change in Mental Status No Sepsis Action Taken by Nursing No Action Required 05/31/23 10:30 Temperature Temperature Source Pulse Rate 84 Pulse Rate from SpO2 Sensor 86 Respiratory Rate 22 Respiratory Depth Respiratory Pattern Blood Pressure 155/92 H Blood Pressure Mean 113 Pulse Oximetry 95 Oxygen Delivery Method Sepsis Recent Fever Within 48 Hours Sepsis New/Unexplained Change in Mental Status Sepsis Action Taken by Nursing Laboratory Data 05/31/23 07:20 05/31/23 07:20 Lab Results 05/31/23 05/31/23 05/31/23 Range/Units 07:20 07:20 07:20 WBC 9.06 (4.8-10.8) K/ul RBC 4.53 (4.20-5.40) M/uL Hgb 14.5 (12.0-16.0) g/dl Hct 44.1 (37.0-47.0) % MCV 97.4 (80.0-100.0) fL MCH 32.0 (25.0-34.0) pg MCHC 32.9 (32.0-36.0) g/dL RDW Std Deviation 45.2 (36.4-46.3) fL RDW Coeff of [place] 12.6 (11.5-14.5) % Plt Count 200 (130-400) K/uL MPV 11.4 (9.4-12.4) fL Immature Gran % (Auto) 0.2 % Neut % (Auto) 81.4 % Lymph % (Auto) 11.6 % [place] % (Auto) 6.2 % Eos % (Auto) 0.2 % Baso % (Auto) 0.4 % Neut # (Auto) 7.37 H (1.40-6.50) K/uL Lymph # (Auto) 1.05 L (1.20-3.40) K/uL [place] # (Auto) 0.56 (0.11-0.59) K/uL Eos # (Auto) 0.02 (0.00-0.50) K/uL Baso # (Auto) 0.04 (0.00-0.20) K/uL Immature Gran # (Auto) 0.02 (0.01-0.20) K/uL PT 11.0 (9.0-12.0) Seconds INR 1.0 (0.9-1.1) Sodium 139 (136-145) mmol/L Potassium 4.1 (3.5-5.1) mmol/L Chloride 103 (98-107) mmol/L Carbon Dioxide 29 (21-32) mmol/L Anion Gap 7 (3-11) BUN 29 H (6-23) mg/dl Creatinine 1.42 H (0.6-1.2) mg/dl Est Cr Clr Drug Dosing 28.2 ml/min Est GFR ( Amer) 38.4 ml/min Est GFR (Non-Af Amer) 33.1 ml/min BUN/Creatinine Ratio 20.4 H (10-20) Glucose 126 H (70-99(Fasting)) mg/dl Calcium 10.6 H (8.6-10.3) mg/dl Magnesium 2.0 (1.7-2.4) mg/dl Total Bilirubin 0.5 (0.2-1.0) mg/dl AST 15 (13-39) U/L ALT 8 (7-52) U/L Alkaline Phosphatase 65 (34-104) U/L Troponin I High Sens 8.4 (0-14) pg/ml Total Protein 7.3 (6.0-8.3) gm/dl Albumin 4.2 (3.4-5.0) gm/dl Globulin 3.1 (2.5-4.0) gm/dl Albumin/Globulin Ratio 1.4 (0.9-2) Lipase 32 (11-82) U/L TSH 6.647 H (0.300-4.500) uIu/ml Free T4 0.75 (0.61-1.60) ng/dl Administered Medications Enoxaparin Sodium (Enoxaparin Inj 40 Mg/0.4 Ml Syr) 40 mg SQ Q24H CHRISTIAN Stop: 07/01/23 15:59 Last Admin: 06/01/23 17:27 Dose: 40 mg Documented By: HAYDEN Lactated Ringer's (Lr) 1,000 mls @ 75 mls/hr IV .[id number] CHRISTIAN Stop: 06/30/23 11:59 Last Admin: 06/01/23 10:25 Dose: 100 mls/hr Documented By: Infusion: 06/01/23 10:25 Dose: 100 mls/hr Documented By: Admin: 06/01/23 02:21 Dose: 100 mls/hr Documented By: Infusion: 06/01/23 01:50 Dose: 100 mls/hr Documented By: Admin: 05/31/23 15:50 Dose: 100 mls/hr Documented By: GAGE Pantoprazole Sodium 40 mg/ (Syringe) 10 mls @ 5 mls/min IV DAILY@1100 CHRISTIAN Stop: 07/01/23 10:59 Last Admin: 06/01/23 10:45 Dose: 5 mls/min Documented By: HAYDEN Magnesium Sulfate/Dextrose (Magnesium Sulfate / D5w) 1 gm in 100 mls @ 50 mls/hr IV Q2H CHRISTIAN Stop: 06/01/23 20:14 Last Admin: 06/01/23 17:29 Dose: 50 mls/hr Documented By: HAYDEN Lorazepam (Lorazepam 2 Mg/1 Ml Vial) 0.5 mg IV Q8H PRN PRN Reason: nausea/vomiting Stop: 06/30/23 14:03 Last Admin: 06/01/23 14:25 Dose: 0.5 mg Documented By: Admin: 05/31/23 14:17 Dose: 0.5 mg Documented By: JONI Metoprolol Tartrate (Metoprolol Tartrate 1 Mg/Ml Vial) 5 mg IV Q6 CHRISTIAN Stop: 07/01/23 10:29 Last Admin: 06/01/23 17:26 Dose: 5 mg Documented By: Admin: 06/01/23 10:44 Dose: 5 mg Documented By: HAYDEN Discontinued Medications Sodium Chloride (Nss) 1,000 mls @ 125 mls/hr IV .Q8H CHRISTIAN Stop: 06/30/23 07:29 Last Infusion: 05/31/23 12:56 Dose: 0 mls/hr Documented By: Admin: 05/31/23 08:19 Dose: 125 mls/hr Documented By: JONI Famotidine (Pepcid 20mg Iv Push) 20 mg in 5 mls @ 2.5 mls/min IV NOW STA Stop: 05/31/23 07:30 Last Admin: 05/31/23 08:18 Dose: 2.5 mls/min Documented By: JONI Acetaminophen (Ofirmev) 1,000 mg in 100 mls @ 400 mls/hr IV NOW STA Stop: 05/31/23 07:44 Last Infusion: 05/31/23 12:49 Dose: 0 mls/hr Documented By: Admin: 05/31/23 08:19 Dose: 400 mls/hr Documented By: JONI Ioversol (Optiray 320 100ml) 93 ml IV ONCE ONE Stop: 05/31/23 08:49 Last Admin: 05/31/23 08:49 Dose: 93 ml Documented By: PINA Lorazepam (Lorazepam 2 Mg/1 Ml Vial) 0.25 mg IV NOW STA Stop: 05/31/23 07:30 Last Admin: 05/31/23 08:18 Dose: 0.25 mg Documented By: MT Morphine Sulfate (Morphine Sulfate 4 Mg/Ml 1 Ml Carp\\Vial) 4 mg IV NOW STA Stop: 05/31/23 07:30 Last Admin: 05/31/23 14:17 Dose: Not Given Documented By: MT Morphine Sulfate (Morphine Sulfate 10 Mg/Ml Carp/Vial) Confirm Administered Dose 10 mg .ROUTE .STK-MED ONE Stop: 05/31/23 07:26 Last Admin: 06/01/23 07:55 Dose: Not Given Documented By: LAF Imaging Data Radiologist's Impression: Abdomen/Pelvis CT 05/31/23 08:04 CT SCAN OF THE ABDOMEN AND PELVIS WITH IV CONTRAST CLINICAL HISTORY: Generalized abdominal pain. Nausea and vomiting. COMPARISON STUDY: Abdominal CT dated 10/18/2019. TECHNIQUE: Following the IV administration of 93 cc of Optiray 320, CT scan of the abdomen and pelvis is performed from the lung bases to the proximal femora. Images are reviewed in the axial, sagittal, and coronal planes. IV contrast was administered without complication. A dose lowering technique was utilized adhering to the principles of ALARA. CT DOSE: 699.93 mGy.cm FINDINGS: Lung bases: The heart is enlarged and without pericardial effusion. The coronary arteries are densely calcified. There is a small hiatal hernia. There are scattered calcified granulomas. A 5 mm left lower lobe pulmonary nodule on image #1 is unchanged. Scarring/atelectasis is present in both lung bases. No airspace consolidation or pleural effusion is identified. Liver: The contrast-enhanced liver is normal in size, contour, and attenuation. There is no intrahepatic biliary ductal dilatation. The hepatic veins and portal veins are patent. Gallbladder: Unremarkable. Spleen: Normal in size and attenuation. Pancreas: Unremarkable. Adrenal glands: Unremarkable. Kidneys: The contrast enhanced kidneys demonstrate mild cortical atrophy and are without hydronephrosis. The kidneys enhance symmetrically. Bilateral renal cysts measuring up to 2.6 cm. Additional subcentimeter cortical hypodensities also likely represent cysts but are too small for definitive characterization. A 9 mm enhancing cortical lesion is suggested in the lower pole of left kidney on image #122. Tiny nonobstructing calculi are seen in the right lower pole. Abdominal vasculature: The abdominal aorta is normal in course and caliber noting moderate to advanced atherosclerotic calcification. Bowel: There are distended and fluid-filled loops of small bowel in the midabdomen which measure up to 3 cm in diameter. A transition point is seen in the left upper pelvis on image #226. The distal small bowel is decompressed, and this is consistent with a small bowel obstruction. This is likely on the basis of adhesions. No focally thick-walled bowel loops are seen. There is interloop fluid. No pneumatosis intestinalis or portal venous gas is identified. There is moderate colonic diverticulosis without CT evidence of acute diverticulitis. Rectosigmoid fecal retention is observed with moderate constipation. The appendix is not identified and reported surgically absent. Peritoneum: There is a small volume of perihepatic and perisplenic ascites. There is also a small volume of free fluid in the pelvis. No intraperitoneal free air is identified. Lymphadenopathy: None. Pelvic viscera: The bladder is normal as visualized. The uterus is surgically absent. No adnexal lesion is seen. Skeletal structures: The skeletal structures are osteopenic. There is moderate lumbosacral spondylosis. No lytic or blastic lesions are seen. IMPRESSION: 1. There is a small bowel obstruction. A transition point is seen in the left upper pelvis and this is likely on the basis of adhesions. 2. There is interloop fluid and a small volume of abdominopelvic ascites. 3. No intraperitoneal free air is seen and there is no pneumatosis intestinalis or portal venous gas. 4. A 9 mm enhancing cortical lesion is suggested in the lower pole of the left kidney. This is indeterminant and a tiny renal neoplasm is not excluded. A six- month follow-up with a renal protocol MRI is recommended for reassessment, as is nonemergent/outpatient urology evaluation. 5. Colonic diverticulosis without CT evidence of acute diverticulitis. 6. Cardiomegaly. 7. Additional findings as above. ACT 112: Positive. There are findings on this exam that require communication between the performing entity and the patient following Patient Test Result Information Act ([place] Act 112) guidelines. Electronically signed by: Shaji Marcos M.D. 05/31/2023 9:20 AM Discharge Plan Visit Data Chief Complaint: Abdominal Pain Stated Complaint: ABDOMINAL PAIN ED Provider: Sunshine Young Discharge Problem: Abdominal pain, Nausea & vomiting, SBO (small bowel obstruction) Patient Disposition: Admitted As Inpatient Discharge Instructions Interventions: ED Discharge Assessment Last Done: 05/31/23 15:43
[2023-05-31] MEDS ORDERED: OPTIRAY 320 100ml IV ONE (08:48)
--- NOTE | 2023-05-31 09:22 | CT Scan Report ---
CT SCAN OF THE ABDOMEN AND PELVIS WITH IV CONTRAST CLINICAL HISTORY: Generalized abdominal pain. Nausea and vomiting. COMPARISON STUDY: Abdominal CT dated 10/18/2019. TECHNIQUE: Following the IV administration of 93 cc of Optiray 320, CT scan of the abdomen and pelvi s is performed from the lung bases to the proximal femora. Images are reviewed in the axial, sagittal , and coronal planes. IV contrast was administered without complication. A dose lowering technique wa s utilized adhering to the principles of ALARA. CT DOSE: 699.93 mGy.cm FINDINGS: Lung bases: The heart is enlarged and without pericardial effusion. The coronary arteries are densely calcified. There is a small hiatal hernia. There are scattered calcified granulomas. A 5 mm left low er lobe pulmonary nodule on image #1 is unchanged. Scarring/atelectasis is present in both lung bases . No airspace consolidation or pleural effusion is identified. Liver: The contrast-enhanced liver is normal in size, contour, and attenuation. There is no intrahepa tic biliary ductal dilatation. The hepatic veins and portal veins are patent. Gallbladder: Unremarkable. Spleen: Normal in size and attenuation. Pancreas: Unremarkable. Adrenal glands: Unremarkable. Kidneys: The contrast enhanced kidneys demonstrate mild cortical atrophy and are without hydronephros is. The kidneys enhance symmetrically. Bilateral renal cysts measuring up to 2.6 cm. Additional subce ntimeter cortical hypodensities also likely represent cysts but are too small for definitive characte rization. A 9 mm enhancing cortical lesion is suggested in the lower pole of left kidney on image #12 2. Tiny nonobstructing calculi are seen in the right lower pole. Abdominal vasculature: The abdominal aorta is normal in course and caliber noting moderate to advance d atherosclerotic calcification. Bowel: There are distended and fluid-filled loops of small bowel in the midabdomen which measure up t o 3 cm in diameter. A transition point is seen in the left upper pelvis on image #226. The distal sma ll bowel is decompressed, and this is consistent with a small bowel obstruction. This is likely on th e basis of adhesions. No focally thick-walled bowel loops are seen. There is interloop fluid. No pneu matosis intestinalis or portal venous gas is identified. There is moderate colonic diverticulosis wit hout CT evidence of acute diverticulitis. Rectosigmoid fecal retention is observed with moderate cons tipation. The appendix is not identified and reported surgically absent. Peritoneum: There is a small volume of perihepatic and perisplenic ascites. There is also a small vol ume of free fluid in the pelvis. No intraperitoneal free air is identified. Lymphadenopathy: None. Pelvic viscera: The bladder is normal as visualized. The uterus is surgically absent. No adnexal lesi on is seen. Skeletal structures: The skeletal structures are osteopenic. There is moderate lumbosacral spondylosi s. No lytic or blastic lesions are seen. IMPRESSION: 1. There is a small bowel obstruction. A transition point is seen in the left upper pelvis and this i s likely on the basis of adhesions. 2. There is interloop fluid and a small volume of abdominopelvic ascites. 3. No intraperitoneal free air is seen and there is no pneumatosis intestinalis or portal venous gas. 4. A 9 mm enhancing cortical lesion is suggested in the lower pole of the left kidney. This is indete rminant and a tiny renal neoplasm is not excluded. A six-month follow-up with a renal protocol MRI is recommended for reassessment, as is nonemergent/outpatient urology evaluation. 5. Colonic diverticulosis without CT evidence of acute diverticulitis. 6. Cardiomegaly. 7. Additional findings as above. ACT 112: Positive. There are findings on this exam that require communication between the performing entity and the patient following Patient Test Result Information Act ([place] Act 112) guidelines. Electronically signed by: Shaji Marcos M.D. 05/31/2023 9:20 AM
--- NOTE | 2023-05-31 10:54 | History & Physical Report ---
Date of Service May 31, 2023 Assessment & Plan (1) Small bowel obstruction: Plan: -Admit to the PCU on tele in case IV cardiac medications will be needed while NPO -Currently stable but still having nausea and vomiting -Developed acute generalized abd pain, nausea, and vomiting around midnight today -CT of the abd/pelvis w/IV con shows a SBO without signs of perforation -Patient's abd pain is improved but still having nausea/vomiting -No significant metabolic abnormalities, no leukocytosis -Patient does not believe she has aspirated, will obtain CXR for further evaluation -General surgery evaluated the patient, ok for patient to stay here, no urgent surgical plans, agrees with strict NPO for now -Will hold NG tube for now to see if antiemetics treat her symptoms, if needed, will place NG tube -Strict NPO for now; will keep on LR while NPO -PRN zofran for nausea/vomiting, prn morphine for abd pain -Hold chemical DVT PPX in case of urgent OR needs; BL HUBER's for DVT PPX for now -AM CBC, CMP, Mag, PT/INR (2) Abnormal CT scan, kidney: Plan: -CT of the abd/pelvis today shows a 9 mm enhancing cortical lesion is suggested in the lower pole of the left kidney -Read as indeterminate but cannot rule out a small renal neoplasm at this time -The patient states she has never been told about something like this in the past with previous Urology appointments, likely a new finding -A six-month follow-up with a renal protocol MRI is recommended for reassessment, as is nonemergent/outpatient urology evaluation. -Please ensure the patient has a follow-up appointment with Urology scheduled prior to discharge (3) Paroxysmal atrial fibrillation: Plan: -Stable, is currently in rate controlled afib -Will need to hold PO diltiazem for now with NPO status; keep on PCU whille NPO in case IV diltiazem is needed -Hold Eliquis in case of urgent OR needs; if NPO for multiple days could consider heparin drip -Continue to monitor on tele (4) Hypercalcemia: Plan: -Noted to be 10.9 today -Likely due to dehydration -Continue IV fluids while NPO -Follow am Calcium level (5) Hyperthyroidism: Plan: -Will need to hold methimazole with stict NPO -Will ass TSH level on admission for further evaluation (6) HTN (hypertension): Plan: -Stable -Hold losartan and HCTZ for now (7) Nocturia: Plan: -Reason why she is on nightly Desmopressin -Hold while NPO Plan The patient was discussed with Dr. Fuller at the time of the admisssion History of Present Illness Chief Complaint: Abdominal pain, nausea, vomiting Primary Care Provider: Rocky Norton MD Lara is an 87 year old female with a PMH significant for PAF on Eliquis, hyperthyroidism, asthma, osteopenia, and exertional chest pain who presented to the [facility] ED on 05/31 with abdominal pain and vomiting. She remained stable in the ED. Labs were significant for a lymphocyte count of 7.37, Cr of 1.42 (baseline is near 1.0), Calcium of 10.6. Ct of the abd/pelvis w/IV con was read as 1. There is a small bowel obstruction. A transition point is seen in the left upper pelvis and this is likely on the basis of adhesions. 2. There is interloop fluid and a small volume of abdominopelvic ascites. 3. No intraperitoneal free air is seen and there is no pneumatosis intestinalis or portal venous gas. 4. A 9 mm enhancing cortical lesion is suggested in the lower pole of the left kidney. This is indeterminant and a tiny renal neoplasm is not excluded. A six-month follow-up with a renal protocol MRI is recommended for reassessment, as is nonemergent/outpatient urology evaluation. 5. Colonic diverticulosis without CT evidence of acute diverticulitis. 6. Cardiomegaly.. Prior to admission the patient was given 1L NSS, 20 mg famotidine, 0.25 mg Ativan, 1gm Tylenol, and 4 mg IV morphine. General surgery evaluated the At the time of the exam the patient was sitting in bed in no acute. However, during my exam she was still experiencing nausea and vomiting. She states that her symptoms began acutely at midnight this am. She has had multiple episodes of nausea and non-bloody emesis at home, in route to the ED, and in the ED. She initially experienced 10/10 generalized abdominal pain when her symptoms began, her pain is currently a 3/10. Her last bowel movement was yesterday afternoon; she does not believe that she has passed gas recently. She does not believe that she aspirated during her vomiting episodes. She denies recent fever, chest pain, SOB, aspiration, hematemesis, coffee ground emesis, dysuria, hematuria, melena, LE swelling, and recent trauma. She did not take her am medications prior to arrival. We discussed code status, she does not want CPR or defibrillation in the event of cardiac arrest. In the event of respiratory failure she would want a trial of intubation. Please refer to Dr. Fuller's attestation for any changes to the treatment plan Allergies Allergy/AdvReac Type Severity Reaction Status Date / Time ondansetron [From Zofran] Allergy Intermediate Nausea Unverified 05/31/23 17:16 amoxicillin Allergy Unknown RASH Verified 05/14/23 13:28 clavulanic acid Allergy Unknown RASH Verified 05/14/23 13:28 clindamycin Allergy Unknown RASH Verified 05/14/23 13:28 Sulfa (Sulfonamide Allergy Unknown RASH Verified 05/14/23 13:28 Antibiotics) cephalexin Allergy Unknown Verified 05/14/23 13:28 doxycycline Allergy Unknown Verified 05/14/23 13:28 meperidine [From Demerol] Allergy Unknown Verified 05/14/23 13:28 pantoprazole AdvReac Intermediate Vomiting Verified 05/14/23 13:28 benzonatate AdvReac Unknown SICK IN Verified 05/14/23 13:28 STOMACH codeine AdvReac Unknown SICK IN Verified 05/14/23 13:28 STOMACH levofloxacin AdvReac Unknown SICK IN Verified 05/14/23 13:28 STOMACH Home Medications Medication Instructions Recorded Confirmed Type mecobalamin (vitamin B12) 1,000 1,000 mcg PO DAILY #30 tabs 02/11/21 05/31/23 Rx mcg chewable tablet cholecalciferol (vitamin D3) 50 50 mcg PO DAILY #30 caps 02/12/22 05/31/23 Rx mcg (2,000 unit) capsule desmopressin 0.1 mg tablet 0.1 mg PO QPM 03/20/22 05/31/23 History magnesium 250 mg tablet 250 mg PO DAILY #30 tabs 03/21/22 05/31/23 Rx nitroglycerin 0.3 mg sublingual 0.3 mg sublingual Q5M PRN chest 05/26/22 05/31/23 Rx tablet pain #30 tabs diltiazem HCl 240 mg 240 mg PO DAILY #90 caps 07/02/22 05/31/23 Rx capsule,extended release 24 hr losartan 50 mg tablet 50 mg PO DAILY #180 tabs 08/15/22 05/31/23 Rx apixaban 5 mg tablet (Eliquis) 5 mg PO BID #180 tabs 10/28/22 05/31/23 Rx fluticasone propionate 50 1 spray intranasal DAILY #3 12/24/22 05/31/23 Rx mcg/actuation nasal Inhalers spray,suspension (Allergy Relief (fluticasone)) pantoprazole 40 mg tablet,delayed 40 mg PO DAILY #90 tabs 12/24/22 05/31/23 Rx release hydrochlorothiazide 12.5 mg tablet 12.5 mg PO DAILY #90 tabs 02/02/23 05/31/23 Rx denosumab 60 mg/mL subcutaneous 60 mg subcut .COMPLEX #1 mL 03/26/23 05/31/23 Rx syringe (Prolia) methimazole 5 mg tablet 5 mg PO DAILY #90 tabs 05/28/23 05/31/23 Rx Past Med/Surg History Medical History ZHANE (acute kidney injury) Asthma Atrial fibrillation Bladder spasm Bowel obstruction (2014) Chest pressure Hypertension Hyperthyroidism Kidney stones Surgical History H/O dilation and curettage H/O exploratory laparotomy History of appendectomy History of bowel resection History of cataract surgery History of colonoscopy History of hysterectomy History of tonsillectomy Family History Mother Breast cancer Unknown Hypertension Brother Cardiac disorder Denies family history of Ovarian cancer Prostate cancer Myocardial infarction Colorectal cancer Social History Smoking Status: Never smoker Second Hand Exposure: No; Do You Dip or Chew Tobacco: No; Hx Alcohol Use: No Hx Substance Use: No Preferred Language: Slovak Communication Ability: Effective Visual Impairment: No Limitations Hearing Ability: Hard of Hearing [employer]a Integration Architect Required: No Beliefs That Will Affect Care: None marital status: Current Living Situation: Spouse current occupational status: retired How many Children do You have: 2 Feels Safe at Home: Yes Childhood Exposure to Second-Hand Smoke: No Diet: regular during the past year weight has: remained stable Dental Care, Regularly: No Physical Activity Frequency: Daily Seatbelt Use: always Sunscreen Use: Yes Assistive Devices: None Physical Exam Physical Exam: Physical Exam: General: In mild distress due nausea/vomiting, stated age, well-nourished, non-toxic appearing HEENT: Normocephalic, atraumatic, no scleral icterus, pupils around round, symmetrical, and reactive to light, dry mucus membranes, trachea midline, no thyromegaly Chest/Pulm: No respiratory distress, symmetrical chest expansion, clear breath sounds throughout Cardiac: irregular rate and rhythm, no murmurs noted Abdomen: Negative for ascites and bruising, mildly distended abdomen, hypoactive bowel sounds, soft, tender to palpation in the epigastric and upper abdominal regions Musculoskeletal: Symmetrical and without signs of acute trauma, upper and lower extremities with full ROM, no atrophy, spasticity, or flaccidity Extremities: Radial, dorsalis pedis, and posterior tibial pulses are intact and symmetrical, no edema noted in the BL LE's Skin: Warm, dry, no rashes , lesions, or scars noted Neuro: Alert and oriented to person, place, month, year, and president, no focal defects, no tremors noted Psych: Mild distress, calm and cooperative during the exam Results & Data Results & Data Vital Signs (Past 12 Hours) Vital Signs Temp Pulse Resp BP Pulse Ox O2 Del Method 05/31/23 09:30 68 18 133/81 95 05/31/23 08:06 90 05/31/23 07:29 36.9 C 93 H 22 149/98 H 94 Room Air Laboratory Results Abnormal lab results 05/31/23 05/31/23 Range/Units 07:20 07:20 Neut # (Auto) 7.37 H (1.40-6.50) K/uL Lymph # (Auto) 1.05 L (1.20-3.40) K/uL BUN 29 H (6-23) mg/dl Creatinine 1.42 H (0.6-1.2) mg/dl BUN/Creatinine Ratio 20.4 H (10-20) Glucose 126 H (70-99(Fasting)) mg/dl Calcium 10.6 H (8.6-10.3) mg/dl Diagnostic Findings Abdomen/Pelvis CT 05/31/23 08:04 CT SCAN OF THE ABDOMEN AND PELVIS WITH IV CONTRAST CLINICAL HISTORY: Generalized abdominal pain. Nausea and vomiting. COMPARISON STUDY: Abdominal CT dated 10/18/2019. TECHNIQUE: Following the IV administration of 93 cc of Optiray 320, CT scan of the abdomen and pelvis is performed from the lung bases to the proximal femora. Images are reviewed in the axial, sagittal, and coronal planes. IV contrast was administered without complication. A dose lowering technique was utilized adhering to the principles of ALARA. CT DOSE: 699.93 mGy.cm FINDINGS: Lung bases: The heart is enlarged and without pericardial effusion. The coronary arteries are densely calcified. There is a small hiatal hernia. There are scattered calcified granulomas. A 5 mm left lower lobe pulmonary nodule on image #1 is unchanged. Scarring/atelectasis is present in both lung bases. No airspace consolidation or pleural effusion is identified. Liver: The contrast-enhanced liver is normal in size, contour, and attenuation. There is no intrahepatic biliary ductal dilatation. The hepatic veins and portal veins are patent. Gallbladder: Unremarkable. Spleen: Normal in size and attenuation. Pancreas: Unremarkable. Adrenal glands: Unremarkable. Kidneys: The contrast enhanced kidneys demonstrate mild cortical atrophy and are without hydronephrosis. The kidneys enhance symmetrically. Bilateral renal cysts measuring up to 2.6 cm. Additional subcentimeter cortical hypodensities also likely represent cysts but are too small for definitive characterization. A 9 mm enhancing cortical lesion is suggested in the lower pole of left kidney on image #122. Tiny nonobstructing calculi are seen in the right lower pole. Abdominal vasculature: The abdominal aorta is normal in course and caliber noting moderate to advanced atherosclerotic calcification. Bowel: There are distended and fluid-filled loops of small bowel in the midabdomen which measure up to 3 cm in diameter. A transition point is seen in the left upper pelvis on image #226. The distal small bowel is decompressed, and this is consistent with a small bowel obstruction. This is likely on the basis of adhesions. No focally thick-walled bowel loops are seen. There is interloop fluid. No pneumatosis intestinalis or portal venous gas is identified. There is moderate colonic diverticulosis without CT evidence of acute diverticulitis. Rectosigmoid fecal retention is observed with moderate constipation. The appendix is not identified and reported surgically absent. Peritoneum: There is a small volume of perihepatic and perisplenic ascites. There is also a small volume of free fluid in the pelvis. No intraperitoneal free air is identified. Lymphadenopathy: None. Pelvic viscera: The bladder is normal as visualized. The uterus is surgically absent. No adnexal lesion is seen. Skeletal structures: The skeletal structures are osteopenic. There is moderate lumbosacral spondylosis. No lytic or blastic lesions are seen. IMPRESSION: 1. There is a small bowel obstruction. A transition point is seen in the left upper pelvis and this is likely on the basis of adhesions. 2. There is interloop fluid and a small volume of abdominopelvic ascites. 3. No intraperitoneal free air is seen and there is no pneumatosis intestinalis or portal venous gas. 4. A 9 mm enhancing cortical lesion is suggested in the lower pole of the left kidney. This is indeterminant and a tiny renal neoplasm is not excluded. A six- month follow-up with a renal protocol MRI is recommended for reassessment, as is nonemergent/outpatient urology evaluation. 5. Colonic diverticulosis without CT evidence of acute diverticulitis. 6. Cardiomegaly. 7. Additional findings as above. ACT 112: Positive. There are findings on this exam that require communication between the performing entity and the patient following Patient Test Result Information Act ([place] Act 112) guidelines. Electronically signed by: Shaji Marcos M.D. 05/31/2023 9:20 AM ECG Additional Comments: Atrial fibrillation Right bundle branch block Abnormal ECG When compared with ECG of 21-MAR-2022 06:36, Atrial fibrillation has replaced Atrial flutter Code Status & VTE Plan Code Status Conditional; No CPR or defibrillation in the event of cardiac arrest. Would want trial of intubation in the event of respiratory failure VTE Prophylaxis Plan VTE Prophylaxis will be ordered: Yes Supervising Physician Co-Signing Physician Notes I personally saw and examined the patient. I verified all estrada points and agree with Elkin Easley PA-C with the following exceptions and/or additions: 87 year old presents to the ER with nausea, vomiting and abdominal pain started at midnight. Prior history of bowel obstruction. Improving symptoms since admission and NPO status. No longer N&V when reviewed on the boyer O/E Alert&Ox3, HS irregular rhythm, regular rate, no murmurs, Abdo mild epigastric tenderness, no rebound or guarding, Abdo SNT A/P Small bowel obstruction - NPO, IV fluids, consult general surgery Paroxysmal A. fib - do not suggest bridging anticoagulation (multiple trials for elective surgeries show this just increases bleeding risk with no change in stroke reduction), consider VTE Prophylaxis if unable to take PO by Thursday, or just restrart Eliquis when able to to take PO. Restart diltiazem PO when able to take PO otherwise will monitor for RVR and start IV diltiazem as needed. PG Care Time/CCT Total # of Minutes Spent Total Time Spent with Patient: Total time spent is greater than 50% in coordination of care (as documented) at patient's floor/unit and/or counseling patient: Coding [place] [address] INT INP/OBS CARE 2/55MIN Patient Type Established Medical Decision Making Moderate Complexity Diagnoses Small bowel obstruction K56.[address] scan, kidney R93.429 Paroxysmal atrial fibrillation I48.0 Hypercalcemia E83.52 Hyperthyroidism E05.90 HTN (hypertension) I10 Nocturia R35.1
--- NOTE | 2023-05-31 11:32 | Electrocardiogram Report ---
Test Reason : Blood Pressure : / mmHG Vent. Rate : 076 BPM Atrial Rate : 000 BPM P-R Int : 000 ms QRS Dur : 132 ms QT Int : 412 ms P-R-T Axes : 000 077 026 degrees QTc Int : 463 ms Atrial fibrillation Right bundle branch block Abnormal ECG When compared with ECG of 21-MAR-2022 06:36, Atrial fibrillation has replaced Atrial flutter Confirmed by Rocky German ([id number]) on 05/31/2023 11:32:36 AM Referred By: REFERRED SELF Confirmed By:Rocky German
[2023-05-31] MEDS ORDERED: MoRPHine SULFATE 2 MG/ML CARP IV PRN (11:58)
[2023-05-31] MEDS ORDERED: ACETAMINOPHEN 1,000 MG/100 ML VIAL IV PRN (11:58)
[2023-05-31] MEDS ORDERED: ONDANSETRON INJ 2 MG/ML 2 ML VIAL IV PRN (11:58)
[2023-05-31 12:53] LABS: Thyroid Stimulating Hormone 6.647 uIu/ml (0.300-4.500)
--- NOTE | 2023-05-31 13:13 | XRay Report ---
SINGLE VIEW CHEST CLINICAL HISTORY: Vomiting FINDINGS: An AP, portable, upright chest radiograph is compared to study dated 05/14/2023. Correlation is made to abdominal CT performed the same day 05/31/2023. The heart is enlarged noting atherosclerot ic calcification of the thoracic aorta. The pulmonary vasculature is noncongested. Chronic interstiti al thickening is similar to previous. There is bibasilar scarring/atelectasis. No airspace consolidat ion or large pleural effusion is identified. No pneumothorax is seen. The skeletal structures are ost eopenic. The bony thorax is grossly intact. IMPRESSION: Cardiomegaly with no acute cardiopulmonary abnormality identified. ACT 112: Negative or not required by law. Electronically signed by: Shaji Marcos M.D. 05/31/2023 1:10 PM
[2023-05-31 13:29] LABS: T4 Free Thyroxine 0.75 ng/dl (0.61-1.60)
[2023-05-31] MEDS: LORazepam 2 MG/1 ML VIAL IV PRN (14:17)
--- NOTE | 2023-05-31 15:49 | Surgery Consultation ---
Date of Consultation May 31, 2023 Assessment & Plan (1) Nausea & vomiting: (2) Small bowel obstruction: Plan Patient has been admitted. No acute surgical intervention at this time there is no peritonitis present. N.p.o. IV fluids. Patient currently is refusing NG tube but it is recommended that she continues to have nausea vomiting. Follow-up with patient to see if she will accept an NG tube if she is still persistently nauseous and vomiting. Ambulate with assistance when not sedated. Patient says she is unable to have Zofran for nausea, unable to establish why at this time. As per medicine the patient is being anticoagulated on a heparin drip on well her oral anticoagulant is on hold. Follow-up a.m. labs. Replete electrolytes as needed. History of Present Illness Reason for Consultation: Abdominal pain, nausea and vomiting History of Present Illness At the time of my examination, Lara has been medicated with Ativan and is somnolent unable to give good history at this time. She is able to tell me that she had a previous history of a bowel obstruction back in July of 2015 that required surgery and she was admitted for 1 month during that time. She says she has been having abdominal pain for the past 2 weeks but worsened causing her current presentation. As per prior documentation: Lara is an 87 year old female with a PMH significant for PAF on Eliquis, hyperthyroidism, asthma, osteopenia, and exertional chest pain who presented to the [facility] ED on 05/31 with abdominal pain and vomiting. She remained stable in the ED. Labs were significant for a lymphocyte count of 7.37, Cr of 1.42 (baseline is near 1.0), Calcium of 10.6. CT of the abd/pelvis w/IV con was read as 1. There is a small bowel obstruction. A transition point is seen in the left upper pelvis and this is likely on the basis of adhesions. 2. There is interloop fluid and a small volume of abdominopelvic ascites. 3. No intraperitoneal free air is seen and there is no pneumatosis intestinalis or portal venous gas. 4. A 9 mm enhancing cortical lesion is suggested in the lower pole of the left kidney. This is indeterminant and a tiny renal neoplasm is not excluded. A six-month follow-up with a renal protocol MRI is recommended for reassessment, as is nonemergent/outpatient urology evaluation. 5. Colonic diverticulosis without CT evidence of acute diverticulitis. 6. Cardiomegaly.. Prior to admission the patient was given 1L NSS, 20 mg famotidine, 0.25 mg Ativan, 1gm Tylenol, and 4 mg IV morphine. General surgery evaluated the During my examination I am able to gather from Lara that she does still have nausea, she is holding a vomit bag and says she still had vomiting. Her nurse also confirms that she has had vomiting that seem to temporarily charu with a dose of Ativan earlier in the morning and she recently had a second dose but still feels nauseous. Lara does not want an NG tube at this time. Allergies Allergy/AdvReac Type Severity Reaction Status Date / Time amoxicillin Allergy Unknown RASH Verified 05/14/23 13:28 clavulanic acid Allergy Unknown RASH Verified 05/14/23 13:28 clindamycin Allergy Unknown RASH Verified 05/14/23 13:28 Sulfa (Sulfonamide Allergy Unknown RASH Verified 05/14/23 13:28 Antibiotics) cephalexin Allergy Unknown Verified 05/14/23 13:28 doxycycline Allergy Unknown Verified 05/14/23 13:28 meperidine [From Demerol] Allergy Unknown Verified 05/14/23 13:28 pantoprazole AdvReac Intermediate Vomiting Verified 05/14/23 13:28 benzonatate AdvReac Unknown SICK IN Verified 05/14/23 13:28 STOMACH codeine AdvReac Unknown SICK IN Verified 05/14/23 13:28 STOMACH levofloxacin AdvReac Unknown SICK IN Verified 05/14/23 13:28 STOMACH Home Medications Medication Instructions Recorded Confirmed Type mecobalamin (vitamin B12) 1,000 1,000 mcg PO DAILY #30 tabs 02/11/21 05/31/23 Rx mcg chewable tablet cholecalciferol (vitamin D3) 50 50 mcg PO DAILY #30 caps 02/12/22 05/31/23 Rx mcg (2,000 unit) capsule desmopressin 0.1 mg tablet 0.1 mg PO QPM 03/20/22 05/31/23 History magnesium 250 mg tablet 250 mg PO DAILY #30 tabs 03/21/22 05/31/23 Rx nitroglycerin 0.3 mg sublingual 0.3 mg sublingual Q5M PRN chest 05/26/22 05/31/23 Rx tablet pain #30 tabs diltiazem HCl 240 mg 240 mg PO DAILY #90 caps 07/02/22 05/31/23 Rx capsule,extended release 24 hr losartan 50 mg tablet 50 mg PO DAILY #180 tabs 08/15/22 05/31/23 Rx apixaban 5 mg tablet (Eliquis) 5 mg PO BID #180 tabs 10/28/22 05/31/23 Rx fluticasone propionate 50 1 spray intranasal DAILY #3 12/24/22 05/31/23 Rx mcg/actuation nasal Inhalers spray,suspension (Allergy Relief (fluticasone)) pantoprazole 40 mg tablet,delayed 40 mg PO DAILY #90 tabs 12/24/22 05/31/23 Rx release hydrochlorothiazide 12.5 mg tablet 12.5 mg PO DAILY #90 tabs 02/02/23 05/31/23 Rx denosumab 60 mg/mL subcutaneous 60 mg subcut .COMPLEX #1 mL 03/26/23 05/31/23 Rx syringe (Prolia) methimazole 5 mg tablet 5 mg PO DAILY #90 tabs 05/28/23 05/31/23 Rx Patient History Medical History ZHANE (acute kidney injury) Asthma Atrial fibrillation Bladder spasm Bowel obstruction (2014) Chest pressure Hypertension Hyperthyroidism Kidney stones Surgical History H/O dilation and curettage H/O exploratory laparotomy History of appendectomy History of bowel resection History of cataract surgery History of colonoscopy History of hysterectomy History of tonsillectomy Family History Mother Breast cancer Unknown Hypertension Brother Cardiac disorder Denies family history of Ovarian cancer Prostate cancer Myocardial infarction Colorectal cancer Social History Smoking Status: Never smoker Second Hand Exposure: No; Do You Dip or Chew Tobacco: No; Hx Alcohol Use: No Hx Substance Use: No Preferred Language: Hungarian Communication Ability: Effective Visual Impairment: No Limitations Hearing Ability: Hard of Hearing Equine Pharmacology Technician Required: No Beliefs That Will Affect Care: None marital status: Current Living Situation: Spouse current occupational status: retired How many Children do You have: 2 Feels Safe at Home: Yes Childhood Exposure to Second-Hand Smoke: No Diet: regular during the past year weight has: remained stable Dental Care, Regularly: No Physical Activity Frequency: Daily Seatbelt Use: always Sunscreen Use: Yes Assistive Devices: None Review of Systems Constitutional: no fever, no chills, no sweats and no body aches Respiratory: no cough, no chest congestion, no dyspnea and no wheezing Cardiovascular: no chest pain, no orthopnea, no syncope and no edema Gastrointestinal: + abdominal pain, + nausea and + vomiting; no hematemesis Physical Exam Constitutional: average body habitus and comfortable; no acute distress and not ill appearing Respiratory: no respiratory distress, does not use accessory muscles, no audible wheezes and no stridor Cardiovascular: Rate/Rhythm: regular rate Extremities: no calf tenderness and no edema Gastrointestinal (Abdomen): Inspection/Auscultation: + abdominal surgical scar; no abdominal edema Percussion/Palpation: + abdomen tender and abdomen soft; no guarding and abdomen not rigid Results & Data Vital Signs (Past 12 Hours) Vital Signs Temp Pulse Resp BP Pulse Ox O2 Del Method 05/31/23 13:30 87 20 156/83 H 95 05/31/23 12:00 75 19 132/87 96 05/31/23 12:28 78 05/31/23 10:30 84 22 155/92 H 95 05/31/23 09:30 68 18 133/81 95 05/31/23 08:06 90 05/31/23 07:29 36.9 C 93 H 22 149/98 H 94 Room Air PG Care Time/CCT Total # of Minutes Spent Total Time Spent with Patient: Total time spent is greater than 50% in coordination of care (as documented) at patient's floor/unit and/or counseling patient: Coding Level of Care Code 77378 OP VST NEW LOW 30-44 MIN Diagnoses Nausea & vomiting R11.2 Small bowel obstruction K56.609
[2023-05-31] MEDS: LACTATED RINGER'S 1,000 ML IV SCH (15:50)
[2023-06-01] MEDS: LACTATED RINGER'S 1,000 ML IV SCH ×3 (02:21→21:29)
[2023-06-01 05:13] LABS: Basophils # (auto) 0.02 K/uL (0.00-0.20); Basophils % (auto) 0.4 %; Eosinophils # (auto) 0.02 K/uL (0.00-0.50); Eosinophils % (auto) 0.4 %; Hematocrit (blood only) 39.5 % (37.0-47.0); Hemoglobin 13.4 g/dl (12.0-16.0); Immature Granulocytes # (auto) 0.01 K/uL (0.01-0.20); Immature Granulocytes % (auto) 0.2 %; Lymphocytes % (auto) 17.6 %; Mean Corpuscular Hemoglobin 33.2 pg (25.0-34.0); Mean Corpuscular Hgb Conc 33.9 g/dL (32.0-36.0); Mean Corpuscular Volume 97.8 fL (80.0-100.0); Mean Platelet Volume 11.6 fL (9.4-12.4); Monocytes # (auto) 0.45 K/uL (0.11-0.59); Monocytes % (auto) 7.9 %; Neutrophils # (auto) 4.19 K/uL (1.40-6.50); Neutrophils % (auto) 73.5 %; Platelet Count 178 K/uL (130-400); RDW Coefficient of Variation 12.7 % (11.5-14.5); RDW Standard Deviation 46.1 fL (36.4-46.3); Red Blood Count 4.04 M/uL (4.20-5.40); White Blood Count 5.69 K/ul (4.8-10.8)
[2023-06-01 05:27] LABS: Albumin Globulin Ratio 1.4 (0.9-2); Albumin Level 3.5 gm/dl (3.4-5.0); BUN Creatinine Ratio 22.7 (10-20); Bilirubin,Total 0.5 mg/dl (0.2-1.0); Calcium 9.4 mg/dl (8.6-10.3); Creatinine Clr Calc Pharmacy 41.2 ml/min; Est GFR (African American) 60.9 ml/min; Est GFR (Non-African American) 52.5 ml/min; Globulin 2.5 gm/dl (2.5-4.0); Magnesium 1.7 mg/dl (1.7-2.4); Potassium 3.7 mmol/L (3.5-5.1)
[2023-06-01 05:44] LABS: Prothrombin Time 11.1 Seconds (9.0-12.0)
--- NOTE | 2023-06-01 10:01 | Surgery Progress Note ---
I have seen and examined this patient with the surgical PA. I agree with the assessment and plan. Date of Service June 01, 2023 Assessment & Plan (1) Small bowel obstruction: Plan: Patient here with concern for SBO She is feeling a bit better than admission. No n/v of recent. Abdominal soreness. No recent flatus/BM Abdomen is soft, mild lower/mid bilateral discomfort. Non distended Would continue on IVF and keep NPO for bowel rest until return of meaningful bowel function and ongoing improvement in symptoms Admission and Anticipated Discharge Date Admission Date: May 31, 2023 Subjective Patient reports feeling a bit better, but states she is still having abdominal soreness. Denies any recent n/v. Says she is not passing any flatus today. No BMs. Physical Exam Physical Exam: awake/alert, no distress Gastrointestinal (Abdomen): Inspection/Auscultation: + abdominal surgical scar (low midline scar); abdomen not distended Percussion/Palpation: + abdomen tender (mild bilateral low/midline discomfort) and abdomen soft Results & Data Vital Signs (Past 12 Hours) Vital Signs Temp Pulse Resp BP Pulse Ox O2 Del Method 06/01/23 08:21 36.6 C 100 H 21 168/82 H 96 Room Air 06/01/23 02:46 36.8 C 78 16 170/73 H 95 Room Air 05/31/23 22:58 36.6 C 99 H 16 161/86 H 93 Room Air PG Care Time/CCT Total # of Minutes Spent Total Time Spent with Patient: Total time spent is greater than 50% in coordination of care (as documented) at patient's floor/unit and/or counseling patient: Coding Level of Care Code 44613 SUB INP/OBS CARE 09/17MIN Diagnoses Small bowel obstruction K56.609
[2023-06-01 10:44] LABS: Appearance Urine Clear (Clear); Bacteria Urine Automated Negative (Negative); Bilirubin Urine Negative (Negative); Blood Urine Negative (Negative); Cast Urine Automated 0 /lpf (0-5); Color Urine Yellow; Glucose Urine UA Negative (Negative); Ketones Urine Trace (Negative); Leukocyte Esterase Urine Negative (Negative); Nitrite Urine Negative (Negative); Protein Urine Trace (Negative); Specific Gravity Urine 1.018 (1.000-1.030); Urobilinogen Urine Negative (Negative)
[2023-06-01] MEDS: METOPROLOL TARTRATE 1 MG/ML VIAL IV SCH ×3 (10:44→23:20)
[2023-06-01] MEDS: PANTOprazole 40 MG in SYRINGE 0 ML IV SCH (10:45)
[2023-06-01] MEDS: LORazepam 2 MG/1 ML VIAL IV PRN (14:25)
--- NOTE | 2023-06-01 15:05 | Hospitalist Progress Note ---
Date of Service June 01, 2023 Assessment & Plan (1) Small bowel obstruction: Plan: -CT of the abd/pelvis w/IV con shows a SBO without signs of perforation; likely from adhesions. No NGT placed per pt's request. Having some persistent nausea with dry heaving but abd pain mostly resolved and passing stool -appreciate General surgery eval -place NGT if worsens -continue IVFs but lower rate to 70mL/hr -continue NPO for now -follow BMP, mag, phos, CBC, replace lytes as needed-give IV magnesium today -cannot tolerate ZOfran? ativan prn nausea -follow KUB in AM -tylenol and morphine prn pain (2) Abnormal CT scan, kidney: Plan: -CT of the abd/pelvis shows a 9 mm enhancing cortical lesion is suggested in the lower pole of the left kidney -Read as indeterminate but cannot rule out a small renal neoplasm at this time -The patient states she has never been told about something like this in the past with previous Urology appointments, likely a new finding -A six-month follow-up with a renal protocol MRI is recommended for reassessment, as is nonemergent/outpatient urology evaluation. -Please ensure the patient has a follow-up appointment with Urology scheduled prior to discharge (3) Paroxysmal atrial fibrillation: Plan: -with afib on tele with rates in low 100s at times -hold PO diltiazem for now with NPO status -Hold Eliquis in case of urgent OR needs -Continue to monitor on tele -add metoprolol 5mg IV q6h scheduled (4) Hypercalcemia: Plan: -Noted to be 10.9 on admission and has a h/o elevated PTH, now improved today with hydration -is also on HCTZ -follows with Endo for osteoporosis and hyperthyroidism, on Prolia -Continue IV fluids while NPO -follow as outpt (5) Hyperthyroidism: Plan: -TSH here actually elevated at 6.6 -ok to hold methimazole while NPO and then may need reduction in dose (6) HTN (hypertension): Plan: -Stable -Hold losartan and HCTZ for now (7) Nocturia: Plan: -Reason why she is on nightly Desmopressin -follows with Urogyn for nocturnal polyuria -her nocturia may actually be from overflow incontinence given that she was straight cathed for 700mL today (8) Urinary retention: Plan: straight cathed for 700mL urine on 06/01 monitor PVR with each shift Plan DVT proph-add Lovenox SQ Dispo-continued stay PCU Admission and Anticipated Discharge Date Admission Date: May 31, 2023 Subjective Pt reports ongoing dry heaving with some saliva in her basin. No further abd pain and she did have a sizeable BM this AM. Tele with Afib, rates 70-100s Physical Exam Constitutional: WD/WN, vitals as above Neck: trachea midline, no thyromegaly Respiratory: normal respiratory effort, lungs clear to auscultation Cardiovascular: Rate/Rhythm: regular rate and + irregularly irregular Heart Sounds: no murmur Extremities: no edema Chest (Breasts): Chest: normal inspection of chest Gastrointestinal (Abdomen): Inspection/Auscultation: normal bowel sounds; abdomen not distended Percussion/Palpation: + abdomen tender (mild in mi abdomen, no guarding or rebound) and abdomen soft Musculoskeletal: Extremities: extremities normal to inspection; no cyanosis and no clubbing Skin: no rashes, warm and dry Neurologic: moves all extremities and awake; no focal motor deficits Psychiatric: A+Ox3, euthymic affect Lymphatic: no lymphedema Results & Data Results & Data Vital Signs (Past 12 Hours) Vital Signs Temp Pulse Pulse Resp BP Pulse Ox O2 Del Method 06/01/23 11:09 36.6 C 85 19 177/88 H 95 Room Air 06/01/23 12:36 80 06/01/23 10:44 99 H 06/01/23 08:21 36.6 C 100 H 21 168/82 H 96 Room Air Laboratory Results CBC, BMP, magnesium, TSH reviewed PG Care Time/CCT Total # of Minutes Spent Total Time Spent with Patient: Total time spent is greater than 50% in coordination of care (as documented) at patient's floor/unit and/or counseling patient: Coding Level of Care Code 02823 SUB INP/OBS CARE 3/50MIN Diagnoses Small bowel obstruction K56.[address] scan, kidney R93.429 Paroxysmal atrial fibrillation I48.0 Hypercalcemia E83.52 Hyperthyroidism E05.90 HTN (hypertension) I10 Nocturia R35.1 Urinary retention R33.9
[2023-06-01] MEDS: ENOXAPARIN INJ 40 MG/0.4 ML SYR SQ SCH (17:27)
[2023-06-01] MEDS: MAGNESIUM SULFATE / D5W 1 GM/100 ML BAG IV SCH ×2 (17:29→19:24)
[2023-06-01] MEDS ORDERED: PROCHLORPERAZINE MALEATE 5 MG TAB PO ONE (20:30)
[2023-06-02 06:02] LABS: Basophils # (auto) 0.05 K/uL (0.00-0.20); Eosinophils # (auto) 0.03 K/uL (0.00-0.50); Eosinophils % (auto) 0.6 %; Hematocrit (blood only) 38.6 % (37.0-47.0); Immature Granulocytes # (auto) 0.03 K/uL (0.01-0.20); Immature Granulocytes % (auto) 0.6 %; Lymphocytes # (auto) 1.12 K/uL (1.20-3.40); Lymphocytes % (auto) 22.4 %; Mean Corpuscular Hemoglobin 32.4 pg (25.0-34.0); Mean Corpuscular Hgb Conc 33.7 g/dL (32.0-36.0); Mean Corpuscular Volume 96.3 fL (80.0-100.0); Mean Platelet Volume 11.1 fL (9.4-12.4); Monocytes # (auto) 0.48 K/uL (0.11-0.59); Monocytes % (auto) 9.6 %; Neutrophils # (auto) 3.28 K/uL (1.40-6.50); Neutrophils % (auto) 65.8 %; Platelet Count 166 K/uL (130-400); RDW Coefficient of Variation 12.5 % (11.5-14.5); RDW Standard Deviation 44.3 fL (36.4-46.3); Red Blood Count 4.01 M/uL (4.20-5.40); White Blood Count 4.99 K/ul (4.8-10.8)
[2023-06-02] MEDS: METOPROLOL TARTRATE 1 MG/ML VIAL IV SCH ×4 (06:07→23:22)
[2023-06-02 06:24] LABS: Albumin Globulin Ratio 1.3 (0.9-2); Albumin Level 3.3 gm/dl (3.4-5.0); BUN Creatinine Ratio 19.4 (10-20); Bilirubin,Total 0.5 mg/dl (0.2-1.0); Calcium 9.2 mg/dl (8.6-10.3); Creatinine Clr Calc Pharmacy 40.8 ml/min; Est GFR (African American) 60.1 ml/min; Est GFR (Non-African American) 51.9 ml/min; Globulin 2.5 gm/dl (2.5-4.0); Phosphorus 2.1 mg/dl (2.5-4.9); Potassium 3.6 mmol/L (3.5-5.1); Total Protein 5.8 gm/dl (6.0-8.3)
[2023-06-02] MEDS: LACTATED RINGER'S 1,000 ML IV SCH ×2 (07:33→22:28)
[2023-06-02] MEDS ORDERED: POTASSIUM PHOS 3 MMOL/1 ML INFUSION IV STA (10:40)
[2023-06-02] MEDS ORDERED: POTASSIUM PHOSPHATE 9 MMOL in SODIUM CHLORIDE 0.9% 250 ML IV ONE (11:00)
--- NOTE | 2023-06-02 11:14 | XRay Report ---
KUB HISTORY: Small bowel obstruction. Follow-up. COMPARISON: Abdomen and pelvis CT 05/31/2023. FINDINGS: A few bibasilar linear densities favoring subsegmental atelectasis. Gas-filled loops of sma ll bowel within the lower abdomen have improved in the interval. Findings favor a resolving partial s mall bowel obstruction. There is gas and stool within the colon. No renal calculi. No ureteral calcu li. No pneumoperitoneum or pneumatosis. IMPRESSION: Above findings favor a resolving partial small bowel obstruction. ACT 112: Negative or not required by law. Electronically signed by: Ryan Odonnell M.D. 06/02/2023 11:13 AM
[2023-06-02] MEDS: PANTOprazole 40 MG in SYRINGE 0 ML IV SCH (12:36)
[2023-06-02] MEDS ORDERED: PROMETHAZINE HCL 6.25 MG in SODIUM CHLORIDE 0.9% 50 ML IV STA (13:33)
[2023-06-02] MEDS ORDERED: bisacodyL 10 MG SUPP PR STA (13:33)
[2023-06-02] MEDS ORDERED: PROMETHAZINE HCL 6.25 MG in SODIUM CHLORIDE 0.9% 50 ML IV PRN (13:33)
--- NOTE | 2023-06-02 13:47 | Hospitalist Progress Note ---
Date of Service June 02, 2023 Assessment & Plan (1) Small bowel obstruction: Plan: -CT of the abd/pelvis w/IV con shows a SBO without signs of perforation; likely from adhesions. No NGT placed per pt's request. Now passing flatus, KUB shows resolution of SBO. Had on eBM on 06/01 but none since then With persistent nausea with dry heaving -give bisacodyl 10mg PA x 1 now -advised daily Miralax after discharge -appreciate General surgery eval-conservative measures -continue IVFs 70mL/hr -continue NPO for now but advance to clears later today if nausea improves with phenergan and moving bowels -follow BMP, mag, phos, CBC, replace lytes as needed-give IV KPhos today -ativan and add phenergan prn nausea -recommend dc HCTZ after discharge to avoid dehydration/constipation (2) Abnormal CT scan, kidney: Plan: -CT of the abd/pelvis shows a 9 mm enhancing cortical lesion is suggested in the lower pole of the left kidney -Read as indeterminate but cannot rule out a small renal neoplasm at this time -The patient states she has never been told about something like this in the past with previous Urology appointments, likely a new finding -A six-month follow-up with a renal protocol MRI is recommended for reassessment, as is nonemergent/outpatient urology evaluation. -Please ensure the patient has a follow-up appointment with Urology scheduled prior to discharge -she follows with [facility] [place] Urology (3) Paroxysmal atrial fibrillation: Plan: -with afib on tele with rates controlled -holding PO diltiazem for now with NPO status -Hold Eliquis while NPO -Continue to monitor on tele -continue metoprolol 5mg IV q6h scheduled (4) Hypercalcemia: Plan: -Noted to be 10.9 on admission and has a h/o elevated PTH, now improved today with hydration -is also on HCTZ -follows with Endo for osteoporosis and hyperthyroidism, on Prolia -Continue IV fluids while NPO -follow as outpt -recommend dc HCTZ to avoid dehydration/constipation for recurrent SBO (5) Hyperthyroidism: Plan: -TSH here actually elevated at 6.6 -ok to hold methimazole while NPO and then may need reduction in dose as outpt -will d/w Endo (6) HTN (hypertension): Plan: -Stable -Hold losartan and HCTZ for now , plan to dc HCTZ -if needs further BP med as outpt, would add amlodipine (7) Nocturia: Plan: -Reason why she is on nightly Desmopressin -follows with Urogyn for nocturnal polyuria -her nocturia may actually be from overflow incontinence given that she was straight cathed for 700mL x 1 here (8) Urinary retention: Plan: straight cathed for 700mL urine on 06/01 monitor PVR with each shift-no normal PVRs Plan DVT proph- Lovenox SQ Dispo-continued stay PCU, improving Discussed with multiple family members at bedside-son, DIL, daughter Admission and Anticipated Discharge Date Admission Date: May 31, 2023 Subjective No abd pain, is passing flatus but no BM today. Still having nausea and spitting up small amounts of what appears to be saliva. Discussed care with family at bedside. Tele wtih Afib, rates 80s Physical Exam Constitutional: WD/WN, vitals as above Neck: trachea midline, no thyromegaly Respiratory: normal respiratory effort, lungs clear to auscultation Cardiovascular: Rate/Rhythm: regular rate and + irregularly irregular Heart Sounds: no murmur Extremities: no edema Chest (Breasts): Chest: normal inspection of chest Gastrointestinal (Abdomen): Inspection/Auscultation: normal bowel sounds; abdomen not distended Percussion/Palpation: + abdomen tender (mild in mi abdomen, no guarding or rebound) and abdomen soft Musculoskeletal: Extremities: extremities normal to inspection; no cyanosis and no clubbing Skin: no rashes, warm and dry Neurologic: moves all extremities and awake; no focal motor deficits Psychiatric: A+Ox3, euthymic affect Lymphatic: no lymphedema Results & Data Results & Data Vital Signs (Past 12 Hours) Vital Signs Temp Pulse Pulse Resp BP BP Pulse Ox 06/02/23 12:50 85 164/88 H 06/02/23 11:12 36.9 C 98 H 18 161/91 H 96 06/02/23 12:36 85 164/88 H 06/02/23 07:02 37.1 C 88 18 145/91 H 93 06/02/23 06:22 85 06/02/23 06:07 99 H 164/88 H 06/02/23 03:00 36.8 C 83 16 164/88 H 94 O2 Del Method 06/02/23 12:50 06/02/23 11:12 Room Air 06/02/23 12:36 06/02/23 07:02 Room Air 06/02/23 06:22 06/02/23 06:07 06/02/23 03:00 Room Air Laboratory Results CBC, BMP, mag, phos reviewed Diagnostic Findings KUB reviewed personally and appears SBO resolved PG Care Time/CCT Total # of Minutes Spent Total Time Spent with Patient: Total time spent is greater than 50% in coordination of care (as documented) at patient's floor/unit and/or counseling patient: Coding Level of Care Code 85511 SUB INP/OBS CARE 3/50MIN Diagnoses Small bowel obstruction K56.[address] scan, kidney R93.429 Paroxysmal atrial fibrillation I48.0 Hypercalcemia E83.52 Hyperthyroidism E05.90 HTN (hypertension) I10 Nocturia R35.1 Urinary retention R33.9
[2023-06-02] MEDS: ENOXAPARIN INJ 40 MG/0.4 ML SYR SQ SCH (16:27)
[2023-06-03] MEDS: METOPROLOL TARTRATE 1 MG/ML VIAL IV SCH ×2 (06:04→11:00)
--- NOTE | 2023-06-03 08:09 | Surgery Progress Note ---
Date of Service June 03, 2023 Assessment & Plan (1) SBO (small bowel obstruction): Plan: Patient here with concern for SBO Some + flatus, no true BM. did receive suppository yesterday, could try another one today Denies n/v/pain. abdomen is soft and non tender Will trial patient on some clear liquids while awaiting more meaningful return of bowel function Continue ambulation as tolerates Pt seen/examined with Dr. Hare Plan I have seen and examined this patient with the surgical PA. I agree with the above assessment and plan. Admission and Anticipated Discharge Date Admission Date: May 31, 2023 Subjective Patient reports she is passing small amounts of flatus. No true BM, but had some mucousy output after receiving a suppository. Denies any nausea/vomiting or pain. Has been out of bed ambulating. Physical Exam Physical Exam: awake/alert, no distress Respiratory: normal respiratory effort Gastrointestinal (Abdomen): Inspection/Auscultation: abdomen not distended Percussion/Palpation: abdomen soft; abdomen nontender Results & Data Vital Signs (Past 12 Hours) Vital Signs Temp Pulse Pulse Resp BP BP Pulse Ox 06/03/23 07:09 36.6 C 78 19 175/90 H 94 06/03/23 07:14 85 06/03/23 06:19 73 06/03/23 06:04 82 164/85 H 06/03/23 04:27 36.6 C 70 18 164/85 H 93 06/03/23 01:34 87 06/02/23 23:47 78 06/02/23 23:47 36.6 C 80 18 154/83 H 93 06/02/23 23:22 81 154/83 H O2 Del Method 06/03/23 07:09 Room Air 06/03/23 07:14 06/03/23 06:19 06/03/23 06:04 06/03/23 04:27 Room Air 06/03/23 01:34 06/02/23 23:47 06/02/23 23:47 Room Air 06/02/23 23:22 PG Care Time/CCT Total # of Minutes Spent Total Time Spent with Patient: Total time spent is greater than 50% in coordination of care (as documented) at patient's floor/unit and/or counseling patient: Coding Level of Care Code 83966 SUB INP/OBS CARE 125MIN Diagnoses SBO (small bowel obstruction) K56.600
[2023-06-03 09:24] LABS: Basophils # (auto) 0.04 K/uL (0.00-0.20); Basophils % (auto) 0.7 %; Eosinophils # (auto) 0.05 K/uL (0.00-0.50); Eosinophils % (auto) 0.9 %; Hematocrit (blood only) 44.2 % (37.0-47.0); Hemoglobin 14.3 g/dl (12.0-16.0); Immature Granulocytes # (auto) 0.02 K/uL (0.01-0.20); Immature Granulocytes % (auto) 0.4 %; Lymphocytes # (auto) 1.13 K/uL (1.20-3.40); Mean Corpuscular Hemoglobin 31.6 pg (25.0-34.0); Mean Corpuscular Hgb Conc 32.4 g/dL (32.0-36.0); Mean Corpuscular Volume 97.8 fL (80.0-100.0); Mean Platelet Volume 11.1 fL (9.4-12.4); Monocytes # (auto) 0.47 K/uL (0.11-0.59); Monocytes % (auto) 8.3 %; Neutrophils # (auto) 3.95 K/uL (1.40-6.50); Neutrophils % (auto) 69.7 %; Platelet Count 175 K/uL (130-400); RDW Coefficient of Variation 12.3 % (11.5-14.5); RDW Standard Deviation 44.4 fL (36.4-46.3); Red Blood Count 4.52 M/uL (4.20-5.40); White Blood Count 5.66 K/ul (4.8-10.8)
[2023-06-03 09:45] LABS: Albumin Globulin Ratio 1.4 (0.9-2); Albumin Level 3.8 gm/dl (3.4-5.0); BUN Creatinine Ratio 20.4 (10-20); Bilirubin,Total 0.7 mg/dl (0.2-1.0); Calcium 9.9 mg/dl (8.6-10.3); Est GFR (African American) 53.5 ml/min; Est GFR (Non-African American) 46.1 ml/min; Globulin 2.8 gm/dl (2.5-4.0); Magnesium 1.8 mg/dl (1.7-2.4); Phosphorus 2.6 mg/dl (2.5-4.9); Potassium 3.6 mmol/L (3.5-5.1); Total Protein 6.6 gm/dl (6.0-8.3)
[2023-06-03] MEDS ORDERED: bisacodyL 10 MG SUPP PR STA (10:26)
[2023-06-03] MEDS: LACTATED RINGER'S 1,000 ML IV SCH (10:50)
[2023-06-03] MEDS: PANTOprazole 40 MG in SYRINGE 0 ML IV SCH (10:51)
[2023-06-03] MEDS ORDERED: MAGNESIUM SULFATE / D5W 1 GM/100 ML BAG IV ONE (16:29)
[2023-06-03] MEDS ORDERED: POTASSIUM CHLORIDE CRTAB 20 MEQ TABCR PO STA (16:29)
--- NOTE | 2023-06-03 16:37 | Hospitalist Progress Note ---
Date of Service June 03, 2023 Assessment & Plan (1) Small bowel obstruction: Plan: CT of the abd/pelvis w/IV con shows a SBO without signs of perforation; likely from adhesions. No NGT placed per pt's request. Now passing flatus, KUB shows resolution of SBO. Had one BM on 06/01 but none since then With persistent nausea with dry heaving now resolved Tolerating clear liquids.No abd pain. -give bisacodyl 10mg PA x 1 again today and if no response, start daily Miralax -advised daily Miralax after discharge -appreciate General surgery eval-conservative measures -dc IVFs -advance to full liquids -follow BMP, mag, phos, CBC, replace lytes as needed-give mag and K today -continued ambulation -recommend dc HCTZ after discharge to avoid dehydration/constipation (2) Abnormal CT scan, kidney: Plan: -CT of the abd/pelvis shows a 9 mm enhancing cortical lesion is suggested in the lower pole of the left kidney -Read as indeterminate but cannot rule out a small renal neoplasm at this time -The patient states she has never been told about something like this in the past with previous Urology appointments, likely a new finding -A six-month follow-up with a renal protocol MRI is recommended for reassessment, as is nonemergent/outpatient urology evaluation. -need to ensure patient has a follow-up appointment with Urology scheduled prior to discharge -she follows with [facility] (3) Paroxysmal atrial fibrillation: Plan: -with afib on tele with rates controlled -restart home PO diltiazem -restart Eliquis -Continue to monitor on tele -discontinue metoprolol 5mg IV q6h scheduled as now back on po dilt (4) Hypercalcemia: Plan: -Noted to be 10.9 on admission and has a h/o elevated PTH, now improved today with hydration -is also on HCTZ -follows with Endo for osteoporosis and hyperthyroidism, on Prolia -follow as outpt -recommend dc HCTZ to avoid dehydration/constipation for recurrent SBO (5) Hyperthyroidism: Plan: -TSH here actually elevated at 6.6 -ok to hold methimazole while NPO and then may need reduction in dose as outpt -will d/w Endo as outpt (6) HTN (hypertension): Plan: -BPs elevated off meds -restart losartan -plan to dc HCTZ permanently -if needs further BP med as outpt, would add amlodipine (7) Nocturia: Plan: -Reason why she is on nightly Desmopressin -follows with Urogyn for nocturnal polyuria -her nocturia may actually be from overflow incontinence given that she was straight cathed for 700mL x 1 here (8) Urinary retention: Plan: straight cathed for 700mL urine on 06/01 monitor PVR with each shift-no normal PVRs Plan DVT proph- Lovenox SQ Dispo-continued stay PCU, improving, likely dc to home tomorrow Admission and Anticipated Discharge Date Admission Date: May 31, 2023 Anticipated date of discharge: 06/04/23 Subjective Pt feeling much better. No abd pain at all, no further nausea, passing flatus but no further BM. Only passed mucus with bisacodyl suppos. Is ambulating the halls. Tele with afib, rates 70-80s Physical Exam Constitutional: WD/WN, vitals as above Neck: trachea midline, no thyromegaly Respiratory: normal respiratory effort, lungs clear to auscultation Cardiovascular: Rate/Rhythm: regular rate and + irregularly irregular Heart Sounds: no murmur Extremities: no edema Chest (Breasts): Chest: normal inspection of chest Gastrointestinal (Abdomen): normal bowel sounds, soft, nontender, no hepatosplenomegaly Musculoskeletal: Extremities: extremities normal to inspection; no cyanosis and no clubbing Skin: no rashes, warm and dry Neurologic: moves all extremities and awake; no focal motor deficits Psychiatric: A+Ox3, euthymic affect Lymphatic: no lymphedema Results & Data Results & Data Vital Signs (Past 12 Hours) Vital Signs Temp Pulse Pulse Resp BP BP Pulse Ox 06/03/23 15:44 79 06/03/23 10:37 36.8 C 81 18 170/82 H 94 06/03/23 11:28 81 167/82 H 06/03/23 11:00 85 170/82 H 06/03/23 07:09 36.6 C 78 19 175/90 H 94 06/03/23 07:14 85 06/03/23 06:19 73 06/03/23 06:04 82 164/85 H O2 Del Method 06/03/23 15:44 06/03/23 10:37 Room Air 06/03/23 11:28 06/03/23 11:00 06/03/23 07:09 Room Air 06/03/23 07:14 06/03/23 06:19 06/03/23 06:04 Laboratory Results CBC, BMP, LFTs, mag, phos reviewed PG Care Time/CCT Total # of Minutes Spent Total Time Spent with Patient: Total time spent is greater than 50% in coordination of care (as documented) at patient's floor/unit and/or counseling patient: Coding Level of Care Code 99947 SUB INP/OBS CARE 2/35MIN Diagnoses Small bowel obstruction K56.[address] scan, kidney R93.429 Paroxysmal atrial fibrillation I48.0 Hypercalcemia E83.52 Hyperthyroidism E05.90 HTN (hypertension) I10 Nocturia R35.1 Urinary retention R33.9
[2023-06-03] MEDS: ENOXAPARIN INJ 40 MG/0.4 ML SYR SQ SCH (17:46)
[2023-06-03] MEDS: POLYETHYLENE (MIRALAX) 17 GM PACK PO SCH (17:47)
[2023-06-03] MEDS: LOSARTAN POTASSIUM 50 MG TAB PO SCH (17:47)
[2023-06-03] MEDS: dilTIAZem HCL 240 MG CAPCR PO SCH (17:47)
[2023-06-03] MEDS: APIXABAN 5 MG TABLET PO SCH (20:33)
[2023-06-04] MEDS ORDERED: PANTOprazole 40 MG TAB PO SCH (06:30)
[2023-06-04 06:34] LABS: Basophils # (auto) 0.03 K/uL (0.00-0.20); Basophils % (auto) 0.6 %; Eosinophils # (auto) 0.08 K/uL (0.00-0.50); Eosinophils % (auto) 1.7 %; Hematocrit (blood only) 38.6 % (37.0-47.0); Hemoglobin 12.9 g/dl (12.0-16.0); Immature Granulocytes # (auto) 0.01 K/uL (0.01-0.20); Immature Granulocytes % (auto) 0.2 %; Lymphocytes # (auto) 1.13 K/uL (1.20-3.40); Lymphocytes % (auto) 23.9 %; Mean Corpuscular Hemoglobin 32.1 pg (25.0-34.0); Mean Corpuscular Hgb Conc 33.4 g/dL (32.0-36.0); Mean Platelet Volume 11.2 fL (9.4-12.4); Monocytes # (auto) 0.49 K/uL (0.11-0.59); Monocytes % (auto) 10.4 %; Neutrophils # (auto) 2.99 K/uL (1.40-6.50); Neutrophils % (auto) 63.2 %; Platelet Count 155 K/uL (130-400); RDW Coefficient of Variation 12.4 % (11.5-14.5); RDW Standard Deviation 43.8 fL (36.4-46.3); Red Blood Count 4.02 M/uL (4.20-5.40); White Blood Count 4.73 K/ul (4.8-10.8)
[2023-06-04 07:04] LABS: BUN Creatinine Ratio 14.9 (10-20); Calcium 9.9 mg/dl (8.6-10.3); Creatinine Clr Calc Pharmacy 39.6 ml/min; Magnesium 1.8 mg/dl (1.7-2.4); Potassium 3.8 mmol/L (3.5-5.1)
--- NOTE | 2023-06-04 08:55 | Surgery Progress Note ---
Date of Service June 04, 2023 Assessment & Plan (1) SBO (small bowel obstruction): Plan: Patient here with concern for SBO She is passing more flatus today. Has not had a real BM yet. Miralax has been started. can also trial another suppository Denies n/v/pain. abdomen is soft and non tender She has been advanced to full liquids, if continues to tolerate well may consider low fiber later today Continue ambulation as tolerates Admission and Anticipated Discharge Date Admission Date: May 31, 2023 Supervising Physician Co-Signing Physician Notes I personally saw and evaluated the patient with Radha Grubbs PA-C and agree with the assessment plan. 87-year-old female with resolving small bowel obstruction She is tolerating full liquid diet and has no abdominal pain She is having small BMs and passing flatus We will advance her to a low fiber diet if she tolerates that she can be discharged home later today Surgery will sign off at this time, please call with any questions or concerns Subjective Patient is feeling fairly well. Denies any abdominal pain/nausea/vomiting. She was advanced to full liquids this AM and is tolerating it well. She is passing flatus, but has not had a BM yet. Physical Exam Physical Exam: awake/alert, no distress Gastrointestinal (Abdomen): Inspection/Auscultation: abdomen not distended Percussion/Palpation: abdomen soft; abdomen nontender Results & Data Vital Signs (Past 12 Hours) Vital Signs Temp Pulse Resp BP BP Pulse Ox O2 Del Method 06/04/23 08:08 36.5 C 86 17 154/85 H 94 Room Air 06/04/23 03:55 36.7 C 82 16 142/78 H 91 Room Air 06/04/23 00:00 36.7 C 68 16 158/70 H 93 Room Air PG Care Time/CCT Total # of Minutes Spent Total Time Spent with Patient: Total time spent is greater than 50% in coordination of care (as documented) at patient's floor/unit and/or counseling patient: Coding Level of Care Code 18733 SUB INP/OBS CARE 1/25MIN Diagnoses SBO (small bowel obstruction) K56.609
[2023-06-04] MEDS ORDERED: methIMAzole 5 MG TABLET PO SCH (09:00)
[2023-06-04] MEDS: LOSARTAN POTASSIUM 50 MG TAB PO SCH (09:32)
[2023-06-04] MEDS: POLYETHYLENE (MIRALAX) 17 GM PACK PO SCH (09:32)
[2023-06-04] MEDS: dilTIAZem HCL 240 MG CAPCR PO SCH (09:32)
[2023-06-04] MEDS: APIXABAN 5 MG TABLET PO SCH (09:32)
[2023-06-04] MEDS ORDERED: bisacodyL 10 MG SUPP PR STA (11:24)
--- NOTE | 2023-06-04 14:38 | Discharge Summary ---
Discharge Summary Date of Service June 04, 2023 Notes For Next Care Provider Medication Changes From Visit Discontinued HCTZ Added Miralax 17 grams daily Admission HPI Per Admitting Provider Lara is an 87 year old female with a PMH significant for PAF on Eliquis, hyperthyroidism, asthma, osteopenia, and exertional chest pain who presented to the [facility] ED on 05/31 with abdominal pain and vomiting. She remained stable in the ED. Labs were significant for a lymphocyte count of 7.37, Cr of 1.42 (baseline is near 1.0), Calcium of 10.6. Ct of the abd/pelvis w/IV con was read as 1. There is a small bowel obstruction. A transition point is seen in the left upper pelvis and this is likely on the basis of adhesions. 2. There is interloop fluid and a small volume of abdominopelvic ascites. 3. No intraperitoneal free air is seen and there is no pneumatosis intestinalis or portal venous gas. 4. A 9 mm enhancing cortical lesion is suggested in the lower pole of the left kidney. This is indeterminant and a tiny renal neoplasm is not excluded. A six-month follow-up with a renal protocol MRI is recommended for reassessment, as is nonemergent/outpatient urology evaluation. 5. Colonic diverticulosis without CT evidence of acute diverticulitis. 6. Cardiomegaly.. Prior to admission the patient was given 1L NSS, 20 mg famotidine, 0.25 mg Ativan, 1gm Tylenol, and 4 mg IV morphine. General surgery evaluated the At the time of the exam the patient was sitting in bed in no acute. However, during my exam she was still experiencing nausea and vomiting. She states that her symptoms began acutely at midnight this am. She has had multiple episodes of nausea and non-bloody emesis at home, in route to the ED, and in the ED. She initially experienced 10/10 generalized abdominal pain when her symptoms began, her pain is currently a 3/10. Her last bowel movement was yesterday afternoon; she does not believe that she has passed gas recently. She does not believe that she aspirated during her vomiting episodes. She denies recent fever, chest pain, SOB, aspiration, hematemesis, coffee ground emesis, dysuria, hematuria, melena, LE swelling, and recent trauma. She did not take her am medications prior to arrival. We discussed code status, she does not want CPR or defibrillation in the event of cardiac arrest. In the event of respiratory failure she would want a trial of intubation. Please refer to Dr. Fuller's attestation for any changes to the treatment plan Principal Dx & Hospital Course #1 = Principal Diagnosis (1) Small bowel obstruction: CT of the abd/pelvis w/IV con shows a SBO without signs of perforation; likely from adhesions. No NGT placed per pt's request. Now passing flatus, KUB shows resolution of SBO. Moving bowels, tolerating low fiber diet -continue daily Miralax after discharge -appreciate General surgery eval-conservative measures -recommend dc HCTZ after discharge to avoid dehydration/constipation (2) Abnormal CT scan, kidney: -CT of the abd/pelvis shows a 9 mm enhancing cortical lesion is suggested in the lower pole of the left kidney -Read as indeterminate but cannot rule out a small renal neoplasm at this time -The patient states she has never been told about something like this in the past with previous Urology appointments, likely a new finding -A six-month follow-up with a renal protocol MRI is recommended for reassessment, as is nonemergent/outpatient urology evaluation. -need to ensure patient has a follow-up appointment with Urology scheduled prior to discharge -she follows with [facility] (3) Paroxysmal atrial fibrillation: -with afib on tele with rates controlled -continue PO diltiazem and Eliquis (4) Hypercalcemia: -Noted to be 10.9 on admission and has a h/o elevated PTH, now improved with hydration -is also on HCTZ-discontinued -follows with Endo for osteoporosis and hyperthyroidism, on Prolia -follow as outpt -recommend dc HCTZ to avoid dehydration/constipation for recurrent SBO (5) Hyperthyroidism: -TSH here actually elevated at 6.6 -held methimazole while NPO and then may need reduction in dose as outpt, but could be off in setting of acute illness -she should f/u with Endo as outpt (6) HTN (hypertension): -BPs acceptable -continue losartan, diltiazem -plan to dc HCTZ permanently -if needs further BP med as outpt, would increase losartan to 100mg daily (7) Nocturia: -Reason why she is on nightly Desmopressin -follows with Urogyn for nocturnal polyuria -her nocturia may actually be from overflow incontinence given that she was straight cathed for 700mL x 1 here but then this reoslved (8) Urinary retention: straight cathed for 700mL urine on 06/01 monitor PVR with each shift-with normal PVRs Plan DVT proph- Lovenox SQ Dispo-dc to home Discharge Exam Constitutional WD/WN, vitals as above Neck trachea midline, no thyromegaly Respiratory normal respiratory effort, lungs clear to auscultation Cardiovascular Rate/Rhythm: regular rate and + irregularly irregular Heart Sounds: no murmur Extremities: no edema Chest (Breasts) Chest: normal inspection of chest Gastrointestinal (Abdomen) normal bowel sounds, soft, nontender, no hepatosplenomegaly Musculoskeletal Extremities: extremities normal to inspection; no cyanosis and no clubbing Skin no rashes, warm and dry Neurologic moves all extremities and awake; no focal motor deficits Psychiatric A+Ox3, euthymic affect Lymphatic no lymphedema Updated Medication List Medication Instructions Recorded Confirmed Type mecobalamin (vitamin B12) 1,000 1,000 mcg PO DAILY #30 tabs 02/11/21 05/31/23 Rx mcg chewable tablet cholecalciferol (vitamin D3) 50 50 mcg PO DAILY #30 caps 02/12/22 05/31/23 Rx mcg (2,000 unit) capsule desmopressin 0.1 mg tablet 0.1 mg PO QPM 03/20/22 05/31/23 History magnesium 250 mg tablet 250 mg PO DAILY #30 tabs 03/21/22 05/31/23 Rx nitroglycerin 0.3 mg sublingual 0.3 mg sublingual Q5M PRN chest 05/26/22 05/31/23 Rx tablet pain #30 tabs diltiazem HCl 240 mg 240 mg PO DAILY #90 caps 07/02/22 05/31/23 Rx capsule,extended release 24 hr losartan 50 mg tablet 50 mg PO DAILY #180 tabs 08/15/22 05/31/23 Rx apixaban 5 mg tablet (Eliquis) 5 mg PO BID #180 tabs 10/28/22 05/31/23 Rx fluticasone propionate 50 1 spray intranasal DAILY #3 12/24/22 05/31/23 Rx mcg/actuation nasal Inhalers spray,suspension (Allergy Relief (fluticasone)) pantoprazole 40 mg tablet,delayed 40 mg PO DAILY #90 tabs 12/24/22 05/31/23 Rx release hydrochlorothiazide 12.5 mg tablet 12.5 mg PO DAILY #90 tabs 02/02/23 05/31/23 R x denosumab 60 mg/mL subcutaneous 60 mg subcut .COMPLEX #1 mL 03/26/23 05/31/23 Rx syringe (Prolia) methimazole 5 mg tablet 5 mg PO DAILY #90 tabs 05/28/23 05/31/23 Rx polyethylene glycol 3350 17 17 g PO DAILY #119 grams 06/04/23 Rx gram/dose oral powder (Miralax) Hospital Stay Data Consultations 05/31/23 10:23 ED Decision to Admit Stat Diagnostic Imagining Performed 05/31/23 08:04 CT abd pelvis IV con only Stat Pending Results Patient Have Any Pending Studies at Discharge: No Discharge Instructions Given to Patient (Per Discharging Provider) Please continue taking Miralax once daily to keep your bowels moving at least 1- 2 times per day. You should avoid high fiber foods or fiber supplements. It is recommended that you stop taking the HCTZ water pill as this could dehydrate ou and contribute to your bowels not moving as often. Total Time Total Time Spent Total Time Spent (In Minutes): 35 min Coding Level of Care Code 45178 INP/OBS DISCH >30 MIN Diagnoses Small bowel obstruction K56.[address] scan, kidney R93.429 Paroxysmal atrial fibrillation I48.0 Hypercalcemia E83.52 Hyperthyroidism E05.90 HTN (hypertension) I10 Nocturia R35.1 Urinary retention R33.9
--- NOTE | 2023-06-09 20:16 | Coding Query ---
To promote full compliance with coding requirements relating to patient care, provider participation is requested in all cases of reporter uncertainty. Please assist us with the question(s) below: Coding Question(s): The diagnosis below was documented in the (06/02/23 Progress Note) then subsequently fell off all further documentation. Please indicate if it is still a possible diagnosis or ruled out. Physician's Response(s): SBO likely due to postprocedural adhesions (x ) Diagnosed and POA ( ) Diagnosed and not POA ( ) Ruled out ( ) Other (please specify) MTDD
== END 2023-06-04 15:34 | disposition home or self-care (01) | DRG 389 ==
LOC: ED 07:13 → EDINP 11:57 → SUATTDRO 11:57 → 4W 15:43

== ENCOUNTER 2024-08-01 18:02 | Observation (INO) ==
[2024-08-01 18:38] LABS: Basophils # (auto) 0.05 K/uL (0.00-0.20); Basophils % (auto) 0.9 %; Eosinophils # (auto) 0.03 K/uL (0.00-0.50); Eosinophils % (auto) 0.5 %; Hematocrit (blood only) 40.9 % (37.0-47.0); Hemoglobin 13.2 g/dl (12.0-16.0); Immature Granulocytes # (auto) 0.02 K/uL (0.01-0.20); Immature Granulocytes % (auto) 0.4 %; Lymphocytes # (auto) 0.85 K/uL (1.20-3.40); Lymphocytes % (auto) 15.3 %; Mean Corpuscular Hemoglobin 31.9 pg (25.0-34.0); Mean Corpuscular Hgb Conc 32.3 g/dL (32.0-36.0); Mean Corpuscular Volume 98.8 fL (80.0-100.0); Monocytes # (auto) 0.36 K/uL (0.11-0.59); Monocytes % (auto) 6.5 %; Neutrophils # (auto) 4.23 K/uL (1.40-6.50); Neutrophils % (auto) 76.4 %; Platelet Count 147 K/uL (130-400); RDW Coefficient of Variation 12.7 % (11.5-14.5); RDW Standard Deviation 45.4 fL (36.4-46.3); Red Blood Count 4.14 M/uL (4.20-5.40); White Blood Count 5.54 K/ul (4.8-10.8)
--- NOTE | 2024-08-01 18:38 | XRay Report ---
EXAM: Radiograph of the Chest 1 View INDICATION: Chest pain. TECHNIQUE: Frontal view of the chest. COMPARISON: 07/09/2023 FINDINGS: Lungs and pleural spaces: Stable hyperinflation and mild scattered basilar parenchymal and generalized interstitial scarring. No consolidation or pulmonary edema. No pleural effusion or pneumothorax. Heart: Stable cardiomegaly. Mediastinum: Normal contour. Bones/joints: No fracture, erosion or dislocation. Soft tissues: No abnormality noted. No radiopaque foreign body noted. Upper abdomen: No abnormality noted. IMPRESSION: Stable chronic changes. No acute disease. ACT 112: Negative or not required by law. Electronically signed by Brittnee Sanchez 08-01-2024 6:37 PM
[2024-08-01 18:58] LABS: Albumin Globulin Ratio 1.4 (0.9-2); Albumin Level 4.3 gm/dl (3.4-5.0); BUN Creatinine Ratio 23.1 (10-20); Bilirubin,Total 0.5 mg/dl (0.2-1.0); Calcium 9.3 mg/dl (8.6-10.3); Creatinine Clr Calc Pharmacy 33.5 ml/min; Globulin 3.1 gm/dl (2.5-4.0); Potassium 4.4 mmol/L (3.5-5.1); Total Protein 7.4 gm/dl (6.0-8.3)
[2024-08-01] MEDS: ONDANSETRON INJ 2 MG/ML 2 ML VIAL IV STA (19:01)
[2024-08-01 19:02] LABS: Troponin I High Sensitivity 6.5 pg/ml (0-14)
[2024-08-01 19:04] LABS: Prothrombin Time 11.2 Seconds (9.0-12.0)
[2024-08-01] MEDS: METOCLOPRAMIDE HCL INJ 5 MG/ML 2 ML VIAL IV ONE (19:04)
[2024-08-01] MEDS: ACETAMINOPHEN 1,000 MG/100 ML VIAL IV STA (19:08)
--- NOTE | 2024-08-01 19:27 | Emergency Department Note ---
Impression & Plan Chest pain, Headache, Nausea & vomiting, senior care (current) use of anticoagulants ED Provider Note Provider: Freddie Bautista MD CHIEF COMPLAINT: Chest discomfort, headache, nausea and vomiting HISTORY OF PRESENT ILLNESS: Patient is a 88-year-old female past medical history of A-fib on Eliquis, hypertension, asthma, and migraines presenting here today via ambulance from home. Had onset around 3 PM while vacuuming development of central chest discomfort and tightness. Took 2 nitroglycerin in short order at home chest tightness improved slightly but now developed severe headache and nausea and vomiting. Denies significant abdominal pain but nausea. Received 8 mg of Zofran prior to arrival without much improvement here. No other trauma or falls reported. PAST MEDICAL HISTORY: As noted above MEDICATIONS: Reviewed home medications SOCIAL HISTORY: Resides at home PHYSICAL EXAM: GENERAL: alert and oriented eyes closed with vomit bag appears uncomfortable Head: normocephalic and atraumatic EYES: No injection, discharge or icterus. PERRL, EOMI. NECK: Trachea midline. ENT: Mucous membranes pink and moist. LUNGS: Airway patent. No retractions. Breath sounds clear HEART: Regular rate and rhythm. No chest wall tenderness ABDOMEN: Soft and non-tender, without guarding or rebound. SKIN: Acyanotic, warm, dry, without rashes EXTREMITIES: Without swelling, tenderness or deformity NEUROLOGICAL: No focal deficits. No aphasia. No facial droop or slurred speech. EK bpm atrial fibrillation. No acute ST segment elevation with a right bundle branch block and a QTc of 510. Nonspecific T wave changes. CONTINUOUS CARDIAC MONITORING: was ordered and showed a heart rate of 70s-90s bpm in atrial fibrillation Patient's laboratory studies and imaging reviewed. Differential includes Cardiac ischemia, aortic dissection, pulmonary embolism, pneumothorax, pneumonia, pericarditis, myocarditis, esophageal rupture, GERD, cholecystitis, pancreatitis, musculoskeletal, as well as other pathologies. IMPRESSION/MEDICAL DECISION MAKING: Patient appears uncomfortable but no focal neurological deficits. EKG obtained. Does appear be in A-fib RVR. Troponin sent and initially normal but symptoms did start when she was exerting herself vacuuming. Headache likely from the nitroglycerin but given the vomiting and headache, will obtain a head CT given her anticoagulation use. Given her age and risk factors given the vomiting will obtain a CT of the abdomen pelvis as well. Fairly benign abdomen. Chest x-ray obtained and per radiology no acute abnormalities noted. Given a small mount of Reglan and Tylenol to help with pain and symptoms. No significant leukocytosis or anemia here. No significant electrolyte evidence signs of renal dysfunction. No transaminitis or evidence of hepatitis or pancreatitis. Urinalysis negative. CT head and abdomen pelvis per radiology report without significant acute intracranial bleed or other abnormalities noted. Repeat troponin is sent to exclude any change or delta given her symptoms. Patient's chest tightness has more or less resolved but still with headache. Has history of migraines states Phenergan often helps 1 to be careful avoid oversedation and this 88-year-old. Given her age and comorbidities however concern with the exertional component of her chest tightness and ongoing unwell symptoms this evening family strongly feel that she is in no condition to go home. Will discuss with the hospitalist for observation. DIAGNOSIS: Chest pain, headache, vomiting DISPOSITION: Hospitalist will evaluate Patient was agreeable with this plan. 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 (Acute) Nausea & vomiting (Acute) Headache (Acute) Chest pain (Acute) Vasomotor rhinitis Hematuria Dysphagia Renal lesion COVID-19 (Acute) SBO (small bowel obstruction) (Acute) Urinary retention Nocturia Abnormal CT scan, kidney Abdominal pain (Acute) Nausea & vomiting (Acute) Abdominal cramping Exertional shortness of breath Chronic cough Upper airway cough syndrome Incontinence Left ventricular hypertrophy Aortic insufficiency On continuous oral anticoagulation Chest pain (Acute) Hypercalcemia Osteopenia Stress incontinence Allergic rhinitis Allergic rhinitis due to animals Hypercalcemia Acute UTI Bladder stones Kidney stones Bladder spasm Headache (Acute) Paroxysmal atrial fibrillation Multiple pulmonary nodules (Acute) Hyperthyroidism (Acute) Goiter (Acute) Asthma (Chronic) HTN (hypertension) (Chronic) Migraine (Chronic) Osteoporosis (Chronic) Medical History ZHANE (acute kidney injury) Chest pressure Hyperthyroidism Asthma Atrial fibrillation Hypertension Bowel obstruction (2015) Surgical History H/O dilation and curettage H/O exploratory laparotomy History of colonoscopy History of cataract surgery History of tonsillectomy History of bowel resection History of appendectomy History of hysterectomy Family History Mother Breast cancer Unknown Hypertension Brother Cardiac disorder Denies family history of Ovarian cancer Prostate cancer Myocardial infarction Colorectal cancer Social History Smoking Status: Never smoker Second Hand Exposure: No; Do You Dip or Chew Tobacco: No; Hx Alcohol Use: No Hx Substance Use: No Preferred Language: Kittitian Communication Ability: Effective Visual Impairment: No Limitations Hearing Ability: Hard of Hearing Commercial 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 Required: No Beliefs That Will Affect Care: None marital status: Current Living Situation: Spouse current occupational status: retired How many Children do You have: 2 Feels Safe at Home: Yes Childhood Exposure to Second-Hand Smoke: No Diet: regular during the past year weight has: remained stable Dental Care, Regularly: No Physical Activity Frequency: Daily Seatbelt Use: always Sunscreen Use: Yes Assistive Devices: None Allergies Allergies Allergy/AdvReac Type Severity Reaction Status Date / Time ondansetron [From Zofran] Allergy Intermediate Nausea Unverified 06/28/24 11:28 amoxicillin Allergy Unknown RASH Verified 06/28/24 11:28 clavulanic acid Allergy Unknown RASH Verified 06/28/24 11:28 clindamycin Allergy Unknown RASH Verified 06/28/24 11:28 Sulfa (Sulfonamide Allergy Unknown RASH Verified 06/28/24 11:28 Antibiotics) cephalexin Allergy Unknown Verified 06/28/24 11:28 doxycycline Allergy Unknown Verified 06/28/24 11:28 meperidine [From Demerol] Allergy Unknown Verified 06/28/24 11:28 pantoprazole AdvReac Intermediate Vomiting Verified 06/28/24 11:28 benzonatate AdvReac Unknown SICK IN Verified 06/28/24 11:28 STOMACH codeine AdvReac Unknown SICK IN Verified 06/28/24 11:28 STOMACH levofloxacin AdvReac Unknown SICK IN Verified 06/28/24 11:28 STOMACH Home Meds Home Medications Medication Instructions Recorded Confirmed desmopressin 0.1 mg tablet 0.1 mg PO QPM 03/20/22 08/01/24 Previous Rx's Medication Instructions Recorded mecobalamin (vitamin B12) 1,000 1,000 mcg PO DAILY #30 tabs 02/11/21 mcg chewable tablet cholecalciferol (vitamin D3) 50 50 mcg PO DAILY #30 caps 02/12/22 mcg (2,000 unit) capsule magnesium 250 mg tablet 250 mg PO DAILY #30 tabs 03/21/22 nitroglycerin 0.3 mg sublingual 0.3 mg sublingual Q5M PRN chest 05/26/22 tablet pain #30 tabs apixaban 5 mg tablet (Eliquis) 5 mg PO BID #180 tabs 11/09/23 denosumab 60 mg/mL subcutaneous 60 mg subcut .COMPLEX #1 mL 03/28/24 syringe (Prolia) ipratropium bromide 21 mcg (0.03 2 spray intranasal TID PRN nasal 05/12/24 %) nasal spray drainage. #90 mL methimazole 5 mg tablet 5 mg PO DAILY #90 tabs 05/20/24 losartan 100 mg tablet 100 mg PO DAILY #90 tabs 05/25/24 diltiazem HCl 240 mg 240 mg PO DAILY #90 caps 07/06/24 capsule,extended release 24 hr Results & Data (ED) Vital Signs Vital Signs - 24 hr 08/01/24 18:09 08/01/24 18:09 08/01/24 18:09 Temperature 36.5 C 36.5 C Temperature Source Oral Oral Pulse Rate 91 H Pulse Rate [Apical] 91 H Pulse Rhythm [Apical] Irregular Respiratory Rate 20 20 Respiratory Effort / Characteristics Non-Labored Spontaneous Non-Labored Spontaneous Respiratory Depth Normal Normal Blood Pressure 182/110 H Blood Pressure [Right Arm] 182/110 H Blood Pressure Mean 134 Blood Pressure Mean [Right Arm] 134 Pulse Oximetry 99 98 Oxygen Delivery Method Room Air Room Air Room Air Sepsis Recent Fever Within 48 Hours No Sepsis New/Unexplained Change in Mental Status No Sepsis Action Taken by Nursing No Action Required 08/01/24 18:16 08/01/24 18:24 08/01/24 19:12 Temperature Temperature Source Pulse Rate 94 H 84 Pulse Rate [Apical] Pulse Rhythm [Apical] Respiratory Rate 20 Respiratory Effort / Characteristics Respiratory Depth Blood Pressure 165/105 H Blood Pressure [Right Arm] Blood Pressure Mean 125 Blood Pressure Mean [Right Arm] Pulse Oximetry 98 96 Oxygen Delivery Method Room Air Sepsis Recent Fever Within 48 Hours Sepsis New/Unexplained Change in Mental Status Sepsis Action Taken by Nursing 08/01/24 19:30 08/01/24 20:18 08/01/24 20:30 Temperature Temperature Source Pulse Rate 84 85 Pulse Rate [Apical] 98 H Pulse Rhythm [Apical] Respiratory Rate 24 22 Respiratory Effort / Characteristics Respiratory Depth Blood Pressure 169/102 H Blood Pressure [Right Arm] 143/85 H Blood Pressure Mean 122 Blood Pressure Mean [Right Arm] 104 Pulse Oximetry 94 96 Oxygen Delivery Method Room Air Room Air Sepsis Recent Fever Within 48 Hours Sepsis New/Unexplained Change in Mental Status Sepsis Action Taken by Nursing Laboratory Data 08/01/24 18:10 08/01/24 18:10 Lab Results 08/01/24 08/01/24 08/01/24 Range/Units 18:10 20:48 21:19 WBC 5.54 (4.8-10.8) K/ul RBC 4.14 L (4.20-5.40) M/uL Hgb 13.2 (12.0-16.0) g/dl Hct 40.9 (37.0-47.0) % MCV 98.8 (80.0-100.0) fL MCH 31.9 (25.0-34.0) pg MCHC 32.3 (32.0-36.0) g/dL RDW Std Deviation 45.4 (36.4-46.3) fL RDW Coeff of [place] 12.7 (11.5-14.5) % Plt Count 147 (130-400) K/uL MPV 11.0 (9.4-12.4) fL Immature Gran % (Auto) 0.4 % Neut % (Auto) 76.4 % Lymph % (Auto) 15.3 % [place] % (Auto) 6.5 % Eos % (Auto) 0.5 % Baso % (Auto) 0.9 % Neut # (Auto) 4.23 (1.40-6.50) K/uL Lymph # (Auto) 0.85 L (1.20-3.40) K/uL [place] # (Auto) 0.36 (0.11-0.59) K/uL Eos # (Auto) 0.03 (0.00-0.50) K/uL Baso # (Auto) 0.05 (0.00-0.20) K/uL Immature Gran # (Auto) 0.02 (0.01-0.20) K/uL PT 11.2 (9.0-12.0) Seconds INR 1.0 (0.9-1.1) Sodium 138 (136-145) mmol/L Potassium 4.4 (3.5-5.1) mmol/L Chloride 104 (98-107) mmol/L Carbon Dioxide 27 (21-32) mmol/L Anion Gap 7 (3-11) BUN 27 H (6-23) mg/dl Creatinine 1.17 (0.6-1.2) mg/dl Est Cr Clr Drug Dosing 33.5 ml/min eGFR 44.88 BUN/Creatinine Ratio 23.1 H (10-20) Glucose 136 H (70-99(Fasting)) mg/dl Calcium 9.3 (8.6-10.3) mg/dl Total Bilirubin 0.5 (0.2-1.0) mg/dl AST 18 (13-39) U/L ALT 10 (7-52) U/L Alkaline Phosphatase 57 (34-104) U/L Troponin I High Sens 6.5 4.8 (0-14) pg/ml Total Protein 7.4 (6.0-8.3) gm/dl Albumin 4.3 (3.4-5.0) gm/dl Globulin 3.1 (2.5-4.0) gm/dl Albumin/Globulin Ratio 1.4 (0.9-2) Lipase 30 (11-82) U/L Urine Color Yellow Urine Appearance Cloudy A (Clear) Urine pH 8.5 H (4.5-7.5) Ur Specific [place] 1.020 (1.000-1.030) Urine Protein 1+ H (Negative) Urine Glucose (UA) Negative (Negative) Urine Ketones 1+ H (Negative) Urine Blood Trace-lysed H (Negative) Urine Nitrite Negative (Negative) Urine Bilirubin Negative (Negative) Urine Urobilinogen Negative (Negative) Ur Leukocyte Esterase Negative (Negative) Urine RBC 0-2 (0-2) /hpf Urine WBC 0-5 (0-5) /hpf Ur Epithelial Cells 0-2 (0-2) /hpf Urine Bacteria None Seen (None Seen) Administered Medications Discontinued Medications Acetaminophen (Ofirmev) 1,000 mg in 100 mls @ 400 mls/hr IV NOW STA Stop: 08/01/24 19:07 Last Infusion: 08/01/24 19:23 Dose: Infused Documented By: Admin: 08/01/24 19:08 Dose: 400 mls/hr Documented By: YOSELYN Metoclopramide HCl (Metoclopramide Hcl Inj 5 Mg/Ml 2 Ml Vial) 5 mg IV ONE ONE Stop: 08/01/24 18:59 Last Admin: 08/01/24 19:04 Dose: 5 mg Documented By: YOSELYN Ondansetron HCl (Ondansetron Inj 2 Mg/Ml 2 Ml Vial) 4 mg IV NOW STA Stop: 08/01/24 18:56 Last Admin: 08/01/24 19:01 Dose: Not Given Documented By: YOSELYN Imaging Data Radiologist's Impression: Chest X-Ray 08/01/24 18:20 EXAM: Radiograph of the Chest 1 View INDICATION: Chest pain. TECHNIQUE: Frontal view of the chest. COMPARISON: 07/09/2023 FINDINGS: Lungs and pleural spaces: Stable hyperinflation and mild scattered basilar parenchymal and generalized interstitial scarring. No consolidation or pulmonary edema. No pleural effusion or pneumothorax. Heart: Stable cardiomegaly. Mediastinum: Normal contour. Bones/joints: No fracture, erosion or dislocation. Soft tissues: No abnormality noted. No radiopaque foreign body noted. Upper abdomen: No abnormality noted. IMPRESSION: Stable chronic changes. No acute disease. ACT 112: Negative or not required by law. Electronically signed by Brittnee Sanchez 08-01-2024 6:[address] 08/01/24 18:52 Exam(s): CT HEAD Without Contrast EXAM: CT Head Without Intravenous Contrast CLINICAL HISTORY: Reason for exam: BARBOUR, nausea. TECHNIQUE: Axial computed tomography images of the head/brain without intravenous contrast. CTDI is 37 mGy and DLP is 1576 mGy-cm. Automated exposure control was utilized for the study. A dose lowering technique was utilized adhering to the principles of ALARA. COMPARISON: MRI 09/17/2023 FINDINGS: Brain: No intracranial hemorrhage, mass-effect, or cerebral edema. Global parenchymal atrophy. Periventricular and subcortical low attenuation which is nonspecific but favored to represent chronic microvascular ischemic changes. Ventricles: Unremarkable. Bones/joints: Unremarkable. No fracture. Soft tissues: Unremarkable. Sinuses: No acute sinusitis. Mastoid air cells: Unremarkable as visualized. IMPRESSION: 1. No acute intracranial abnormality. Electronically signed by: Immanuel Browne MD 08/01/24 21:28 PM Abdomen/Pelvis CT 08/01/24 18:58 Exam(s): CT ABDOMEN + PELVIS Without Contrast EXAM: CT Abdomen and Pelvis Without Intravenous Contrast CLINICAL HISTORY: Reason for exam: vomiting. TECHNIQUE: Axial computed tomography images of the abdomen and pelvis without intravenous contrast. CTDI is 37.32 mGy and DLP is 624.41 mGy-cm. Automated exposure control was utilized for the study. A dose lowering technique was utilized adhering to the principles of ALARA. COMPARISON: No relevant prior studies available. FINDINGS: Lung bases: Atelectasis at the lung bases. Heart: Cardiomegaly. ABDOMEN: Liver: Unremarkable. Gallbladder and bile ducts: Unremarkable. Pancreas: Unremarkable. Spleen: Unremarkable. Adrenals: Unremarkable. Kidneys and ureters: A few cortical cysts in the kidneys. No ureteral stone or obstructive uropathy. Stomach and bowel: No bowel obstruction. Colonic diverticulosis without acute diverticulitis. PELVIS: Appendix: No findings to suggest acute appendicitis. Bladder: Unremarkable. Reproductive: Hysterectomy. ABDOMEN and PELVIS: Intraperitoneal space: Unremarkable. No free air. No significant fluid collection. Bones/joints: Osteopenia. Degenerative spondylosis. Soft tissues: Unremarkable. Vasculature: Severe aortobiiliac atherosclerotic calcifications. Lymph nodes: Unremarkable. IMPRESSION: 1. No bowel obstruction. Colonic diverticulosis without acute diverticulitis. 2. Severe aortobiiliac atherosclerotic calcifications. 3. A few cortical cysts in the kidneys. No ureteral stone or obstructive uropathy. Electronically signed by: Immanuel Browne MD 08/01/24 21:26 PM Discharge Plan Visit Data Chief Complaint: Cardiac Assessment ED Provider: Freddie Bautista Discharge Problem: Chest pain, Headache, Nausea & vomiting, senior care (current) use of anticoagulants Patient Disposition: Being Evaluated by Hospitalist Forms Stand Alone Forms: [facility] Archiver's Prescriptions Prescriptions: No Action mecobalamin (vitamin B12) 1,000 mcg tablet,chewable 1,000 mcg PO DAILY Qty: 30 0RF nitroglycerin 0.3 mg tablet, sublingual 0.3 mg sublingual Q5M PRN (Reason: chest pain) Qty: 30 3RF Rx Instructions: do not exceed 3 doses per episode Eliquis 5 mg tablet 5 mg PO BID Qty: 180 3RF Prolia 60 mg/mL syringe 60 mg subcut .COMPLEX Qty: 1 1RF Rx Instructions: 60 mg subcut every 6 months; methimazole 5 mg tablet 5 mg PO DAILY Qty: 90 1RF losartan 100 mg tablet 100 mg PO DAILY Qty: 90 1RF diltiazem HCl 240 mg capsule,extended release 24hr 240 mg PO DAILY Qty: 90 3RF cholecalciferol (vitamin D3) 50 mcg (2,000 unit) capsule 50 mcg PO DAILY Qty: 30 0RF Hold Instructions: Home Medication placed on hold at Doctor's office ipratropium bromide 21 mcg (0.03 %) spray,non-aerosol 2 spray intranasal TID PRN (Reason: nasal drainage. ) Qty: 90 4RF Rx Instructions: administer into each nostril desmopressin 0.1 mg tablet 0.1 mg PO QPM magnesium 250 mg tablet 250 mg PO DAILY Qty: 30 0RF Rx Instructions: OTC Referrals Referrals: Rocky Norton MD [Primary Care Provider] - Discharge Problem: Chest pain Qualifiers: Chest pain type: unspecified Qualified Code(s): R07.9 - Chest pain, unspecified Headache Qualifiers: Headache type: unspecified Headache chronicity pattern: acute headache Nausea & vomiting Qualifiers: Vomiting type: unspecified Qualified Code(s): R11.2 - Nausea with vomiting, unspecified
[2024-08-01 20:59] LABS: Appearance Urine Cloudy (Clear); Bilirubin Urine Negative (Negative); Blood Urine Trace-lysed (Negative); Color Urine Yellow; Glucose Urine UA Negative (Negative); Ketones Urine 1+ (Negative); Leukocyte Esterase Urine Negative (Negative); Nitrite Urine Negative (Negative); Protein Urine 1+ (Negative); Urobilinogen Urine Negative (Negative); pH Urine 8.5 (4.5-7.5)
[2024-08-01 21:09] LABS: Bacteria Urine None Seen (None Seen); Epithelial Cell Urine 0-2 /hpf (0-2); RBC Urine 0-2 /hpf (0-2); WBC Urine 0-5 /hpf (0-5)
--- NOTE | 2024-08-01 21:27 | CT Scan Report ---
Exam(s): CT ABDOMEN + PELVIS Without Contrast EXAM: CT Abdomen and Pelvis Without Intravenous Contrast CLINICAL HISTORY: Reason for exam: vomiting. TECHNIQUE: Axial computed tomography images of the abdomen and pelvis without intravenous contrast. CTDI is 37.32 mGy and DLP is 624.41 mGy-cm. Automated exposure control was utilized for the study. A dose lowering technique was utilized adhering to the principles of ALARA. COMPARISON: No relevant prior studies available. FINDINGS: Lung bases: Atelectasis at the lung bases. Heart: Cardiomegaly. ABDOMEN: Liver: Unremarkable. Gallbladder and bile ducts: Unremarkable. Pancreas: Unremarkable. Spleen: Unremarkable. Adrenals: Unremarkable. Kidneys and ureters: A few cortical cysts in the kidneys. No ureteral stone or obstructive uropathy. Stomach and bowel: No bowel obstruction. Colonic diverticulosis without acute diverticulitis. PELVIS: Appendix: No findings to suggest acute appendicitis. Bladder: Unremarkable. Reproductive: Hysterectomy. ABDOMEN and PELVIS: Intraperitoneal space: Unremarkable. No free air. No significant fluid collection. Bones/joints: Osteopenia. Degenerative spondylosis. Soft tissues: Unremarkable. Vasculature: Severe aortobiiliac atherosclerotic calcifications. Lymph nodes: Unremarkable. IMPRESSION: 1. No bowel obstruction. Colonic diverticulosis without acute diverticulitis. 2. Severe aortobiiliac atherosclerotic calcifications. 3. A few cortical cysts in the kidneys. No ureteral stone or obstructive uropathy. Electronically signed by: Immanuel Browne MD 08/01/24 21:26 PM
--- NOTE | 2024-08-01 21:29 | CT Scan Report ---
Exam(s): CT HEAD Without Contrast EXAM: CT Head Without Intravenous Contrast CLINICAL HISTORY: Reason for exam: BARBOUR, nausea. TECHNIQUE: Axial computed tomography images of the head/brain without intravenous contrast. CTDI is 37 mGy and DLP is 1576 mGy-cm. Automated exposure control was utilized for the study. A dose lowering technique was utilized adhering to the principles of ALARA. COMPARISON: MRI 09/17/2023 FINDINGS: Brain: No intracranial hemorrhage, mass-effect, or cerebral edema. Global parenchymal atrophy. Periventricular and subcortical low attenuation which is nonspecific but favored to represent chronic microvascular ischemic changes. Ventricles: Unremarkable. Bones/joints: Unremarkable. No fracture. Soft tissues: Unremarkable. Sinuses: No acute sinusitis. Mastoid air cells: Unremarkable as visualized. IMPRESSION: 1. No acute intracranial abnormality. Electronically signed by: Immanuel Browne MD 08/01/24 21:28 PM
--- NOTE | 2024-08-01 22:23 | History & Physical Report ---
Date of Service August 01, 2024 Assessment & Plan (1) Chest pain: (2) halfway (current) use of anticoagulants: (3) Paroxysmal atrial fibrillation: (4) Headache: (5) Nausea & vomiting: (6) Hyperthyroidism: Plan Chest pain- The patient will be admitted to telemetry for serial cardiac enzymes, serial EKG's, cardiac rhythm monitoring and a 2-D echocardiogram with Dopplers. Paroxysmal atrial fibrillation with hypertension, continue apixaban, diltiazem, losartan Initial troponin 6.5, with follow-up pending EKG with atrial fibrillation at 87 bpm, with right bundle branch block Most recent echocardiogram on 03/21/2022 with ejection fraction 55-60% Stress echocardiogram on 04/21/2022 was negative Nausea and vomiting- Patient reports this does not happen until after she took the sublingual nitroglycerin x 2 Chest x-ray, CT scan head, CT scan abdomen and pelvis are all negative Headache- Also did not occur until after use of sublingual nitroglycerin x 2 Likely being aggravated by dehydration Place on NSS at 80 mL/h x 1 L Hyperthyroidism- Check TSH Continue methimazole History of Present Illness Chief Complaint: The patient presents to the emergency department via ambulance from home with complaint of chest pain that began around 3 PM while vacuuming. She then took 2 nitroglycerin sublingual's, and then developed generalized headache, nausea and vomiting. Primary Care Provider: Rocky Norton MD The patient is an 88-year-old female with a past medical history including small bowel obstruction, urinary retention, urinary incontinence, aortic insufficiency, hyperparathyroidism, migraine, hypertension, asthma, right bundle branch block, and paroxysmal atrial fibrillation. En route to the emergency department, she received a milligrams of Zofran from EMS without much improvement. In the emergency department she received Tylenol 1 g IV, Zofran 4 mg IV and Reglan 5 mg IV. At the time of my examination, the symptoms of nausea and vomiting had resolved, but the patient still had some headache, but had improved. The patient was somewhat lethargic and sedated administration of metoclopramide. She reports that the chest tightness that she had experienced, that caused her to use nitrous nitroglycerin sublinguals., has also since resolved Allergies Allergy/AdvReac Type Severity Reaction Status Date / Time ondansetron [From Zofran] Allergy Intermediate Nausea Verified 12/09/24 22:37 amoxicillin Allergy Unknown RASH Verified 06/28/24 11:28 clavulanic acid Allergy Unknown RASH Verified 06/28/24 11:28 clindamycin Allergy Unknown RASH Verified 06/28/24 11:28 Sulfa (Sulfonamide Allergy Unknown RASH Verified 06/28/24 11:28 Antibiotics) cephalexin Allergy Unknown Verified 06/28/24 11:28 doxycycline Allergy Unknown Verified 06/28/24 11:28 meperidine [From Demerol] Allergy Unknown Verified 06/28/24 11:28 pantoprazole AdvReac Intermediate Vomiting Verified 06/28/24 11:28 benzonatate AdvReac Unknown SICK IN Verified 06/28/24 11:28 STOMACH codeine AdvReac Unknown SICK IN Verified 06/28/24 11:28 STOMACH levofloxacin AdvReac Unknown SICK IN Verified 06/28/24 11:28 STOMACH Home Medications Medication Instructions Recorded Confirmed Type mecobalamin (vitamin B12) 1,000 1,000 mcg PO DAILY #30 tabs 02/11/21 08/01/24 Rx mcg chewable tablet cholecalciferol (vitamin D3) 50 50 mcg PO DAILY #30 caps 02/12/22 08/01/24 Rx mcg (2,000 unit) capsule desmopressin 0.1 mg tablet 0.1 mg PO QPM 03/20/22 08/01/24 History magnesium 250 mg tablet 250 mg PO DAILY #30 tabs 03/21/22 08/01/24 Rx nitroglycerin 0.3 mg sublingual 0.3 mg sublingual Q5M PRN chest 05/26/22 08/01/24 Rx tablet pain #30 tabs apixaban 5 mg tablet (Eliquis) 5 mg PO BID #180 tabs 11/09/23 08/01/24 Rx denosumab 60 mg/mL subcutaneous 60 mg subcut .COMPLEX #1 mL 03/28/24 08/01/24 Rx syringe (Prolia) ipratropium bromide 21 mcg (0.03 2 spray intranasal TID PRN nasal 05/12/24 08/01/24 Rx %) nasal spray drainage. 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 (Acute) Nausea & vomiting (Acute) Headache (Acute) Chest pain (Acute) Vasomotor rhinitis Hematuria Dysphagia Renal lesion COVID-19 (Acute) SBO (small bowel obstruction) (Acute) Urinary retention Nocturia Abnormal CT scan, kidney Abdominal pain (Acute) Nausea & vomiting (Acute) Abdominal cramping Exertional shortness of breath Chronic cough Upper airway cough syndrome Incontinence Left ventricular hypertrophy Aortic insufficiency On continuous oral anticoagulation Chest pain (Acute) Hypercalcemia Osteopenia Stress incontinence Allergic rhinitis Allergic rhinitis due to animals Hypercalcemia Acute UTI Bladder stones Kidney stones Bladder spasm Headache (Acute) Paroxysmal atrial fibrillation Multiple pulmonary nodules (Acute) Hyperthyroidism (Acute) Goiter (Acute) Asthma (Chronic) HTN (hypertension) (Chronic) Migraine (Chronic) Osteoporosis (Chronic) Medical History ZHANE (acute kidney injury) Chest pressure Hyperthyroidism Asthma Atrial fibrillation Hypertension Bowel obstruction (2015) Surgical History H/O dilation and curettage H/O exploratory laparotomy History of colonoscopy History of cataract surgery History of tonsillectomy History of bowel resection History of appendectomy History of hysterectomy Family History Mother Breast cancer Unknown Hypertension Brother Cardiac disorder Denies family history of Ovarian cancer Prostate cancer Myocardial infarction Colorectal cancer Social History Smoking Status: Never smoker Second Hand Exposure: No; Do You Dip or Chew Tobacco: No; Hx Alcohol Use: No Hx Substance Use: No Preferred Language: Japanese Communication Ability: Effective Visual Impairment: No Limitations Hearing Ability: Hard of Hearing Sandwich [employer] Carrier Required: No Beliefs That Will Affect Care: None marital status: Current Living Situation: Spouse current occupational status: retired How many Children do You have: 2 Other Information That Helps Us Care for You: No Feels Safe at Home: Yes Safety Concerns: Feels Safe At This Time Childhood Exposure to Second-Hand Smoke: No Diet: regular during the past year weight has: remained stable Dental Care, Regularly: No Physical Activity Frequency: Daily Seatbelt Use: always Sunscreen Use: Yes Assistive Devices: Denture - Upper and Denture - Lower Review of Systems Review of Systems: The patient at this time denies chest pain, palpitations, shortness of breath, dyspnea on exertion, cough, lower extremity swelling, sore throat, fevers, chills, sweats, nausea, vomiting, diarrhea , constipation, abdominal pain, pelvic pain, blood in urine or stool, dysuria, urinary frequency or urgency, lightheadedness, dizziness, headache, rash, abnormal bruising or bleeding, imbalance, focal weakness, numbness or tingling in arms or legs, generalized arthralgias or myalgias, back or neck pain, or night sweats. The review of systems is otherwise negative other than for that already noted above, and at least 10 systems have been reviewed. Physical Exam Physical Exam: The patient is awake, generally fatigued postmedication, and oriented 3, well developed and well nourished, normocephalic and atraumatic, lying in bed and in no acute distress. HEENT--PERRL, EOMI, mucous membranes and oropharynx mildly dry. Neck--supple. No JVD. No bruits. Thyroid normal, trachea midline, no adenopathy. Heart--normal S1 and S2. No murmurs, rubs or gallops. Lungs--clear bilaterally, no respiratory distress, no accessory muscle use. Abdomen--normal bowel sounds and soft. Nontender. Nondistended Extremities--no cyanosis or clubbing. No edema. Dermatologic--normal skin turgor, normal color, no abnormal lymph nodes, no rash. Neurologic--cranial nerves II through XII grossly intact. Rheumatologic--normal range of motion. Psychiatric--normal affect. Results & Data Results & Data Vital Signs (Past 12 Hours) Vital Signs Temp Pulse Pulse Resp BP BP Pulse Ox 08/01/24 20:30 98 H 22 143/85 H 96 08/01/24 20:18 85 08/01/24 19:30 84 24 169/102 H 94 08/01/24 19:12 84 20 165/105 H 96 08/01/24 18:24 98 08/01/24 18:16 94 H 08/01/24 18:09 36.5 C 91 H 20 182/110 H 98 08/01/24 18:09 08/01/24 18:09 36.5 C 91 H 20 182/110 H 99 O2 Del Method 08/01/24 20:30 Room Air 08/01/24 20:18 08/01/24 19:30 Room Air 08/01/24 19:12 08/01/24 18:24 Room Air 08/01/24 18:16 08/01/24 18:09 Room Air 08/01/24 18:09 Room Air 08/01/24 18:09 Room Air Laboratory Results Laboratory Results WBC 5.54 K/ul (4.8-10.8) 08/01/24 18:10 RBC 4.14 M/uL (4.20-5.40) L 08/01/24 18:10 Hgb 13.2 g/dl (12.0-16.0) 08/01/24 18:10 Hct 40.9 % (37.0-47.0) 08/01/24 18:10 MCV 98.8 fL (80.0-100.0) 08/01/24 18:10 MCH 31.9 pg (25.0-34.0) 08/01/24 18:10 MCHC 32.3 g/dL (32.0-36.0) 08/01/24 18:10 RDW Std Deviation 45.4 fL (36.4-46.3) 08/01/24 18:10 RDW Coeff of [place] 12.7 % (11.5-14.5) 08/01/24 18:10 Plt Count 147 K/uL (130-400) 08/01/24 18:10 MPV 11.0 fL (9.4-12.4) 08/01/24 18:10 Immature Gran % (Auto) 0.4 % 08/01/24 18:10 Neut % (Auto) 76.4 % 08/01/24 18:10 Lymph % (Auto) 15.3 % 08/01/24 18:10 [place] % (Auto) 6.5 % 08/01/24 18:10 Eos % (Auto) 0.5 % 08/01/24 18:10 Baso % (Auto) 0.9 % 08/01/24 18:10 Neut # (Auto) 4.23 K/uL (1.40-6.50) 08/01/24 18:10 Lymph # (Auto) 0.85 K/uL (1.20-3.40) L 08/01/24 18:10 [place] # (Auto) 0.36 K/uL (0.11-0.59) 08/01/24 18:10 Eos # (Auto) 0.03 K/uL (0.00-0.50) 08/01/24 18:10 Baso # (Auto) 0.05 K/uL (0.00-0.20) 08/01/24 18:10 Immature Gran # (Auto) 0.02 K/uL (0.01-0.20) 08/01/24 18:10 PT 11.2 Seconds (9.0-12.0) 08/01/24 18:10 INR 1.0 (0.9-1.1) 08/01/24 18:10 Sodium 138 mmol/L (136-145) 08/01/24 18:10 Potassium 4.4 mmol/L (3.5-5.1) 08/01/24 18:10 Chloride 104 mmol/L (98-107) 08/01/24 18:10 Carbon Dioxide 27 mmol/L (21-32) 08/01/24 18:10 Anion Gap 7 (3-11) 08/01/24 18:10 BUN 27 mg/dl (6-23) H 08/01/24 18:10 Creatinine 1.17 mg/dl (0.6-1.2) 08/01/24 18:10 Est Cr Clr Drug Dosing 33.5 ml/min 08/01/24 18:10 eGFR 44.88 08/01/24 18:10 BUN/Creatinine Ratio 23.1 (10-20) H 08/01/24 18:10 Glucose 136 mg/dl (70-99(Fasting)) H 08/01/24 18:10 Calcium 9.3 mg/dl (8.6-10.3) 08/01/24 18:10 Total Bilirubin 0.5 mg/dl (0.2-1.0) 08/01/24 18:10 AST 18 U/L (13-39) 08/01/24 18:10 ALT 10 U/L (7-52) 08/01/24 18:10 Alkaline Phosphatase 57 U/L (34-104) 08/01/24 18:10 Troponin I High Sens 4.8 pg/ml (0-14) 08/01/24 21:19 Total Protein 7.4 gm/dl (6.0-8.3) 08/01/24 18:10 Albumin 4.3 gm/dl (3.4-5.0) 08/01/24 18:10 Globulin 3.1 gm/dl (2.5-4.0) 08/01/24 18:10 Albumin/Globulin Ratio 1.4 (0.9-2) 08/01/24 18:10 Lipase 30 U/L (11-82) 08/01/24 18:10 Urine Color Yellow 08/01/24 20:48 Urine Appearance Cloudy (Clear) A 08/01/24 20:48 Urine pH 8.5 (4.5-7.5) H 08/01/24 20:48 Ur Specific [place] 1.020 (1.000-1.030) 08/01/24 20:48 Urine Protein 1+ (Negative) H 08/01/24 20:48 Urine Glucose (UA) Negative (Negative) 08/01/24 20:48 Urine Ketones 1+ (Negative) H 08/01/24 20:48 Urine Blood Trace-lysed (Negative) H 08/01/24 20:48 Urine Nitrite Negative (Negative) 08/01/24 20:48 Urine Bilirubin Negative (Negative) 08/01/24 20:48 Urine Urobilinogen Negative (Negative) 08/01/24 20:48 Ur Leukocyte Esterase Negative (Negative) 08/01/24 20:48 Urine RBC 0-2 /hpf (0-2) 08/01/24 20:48 Urine WBC 0-5 /hpf (0-5) 08/01/24 20:48 Ur Epithelial Cells 0-2 /hpf (0-2) 08/01/24 20:48 Urine Bacteria None Seen (None Seen) 08/01/24 20:48 Impressions Chest X-Ray 08/01/24 18:20 EXAM: Radiograph of the Chest 1 View INDICATION: Chest pain. TECHNIQUE: Frontal view of the chest. COMPARISON: 07/09/2023 FINDINGS: Lungs and pleural spaces: Stable hyperinflation and mild scattered basilar parenchymal and generalized interstitial scarring. No consolidation or pulmonary edema. No pleural effusion or pneumothorax. Heart: Stable cardiomegaly. Mediastinum: Normal contour. Bones/joints: No fracture, erosion or dislocation. Soft tissues: No abnormality noted. No radiopaque foreign body noted. Upper abdomen: No abnormality noted. IMPRESSION: Stable chronic changes. No acute disease. ACT 112: Negative or not required by law. Electronically signed by Brittnee Sanchez 08-01-2024 6:[address] 08/01/24 18:52 Exam(s): CT HEAD Without Contrast EXAM: CT Head Without Intravenous Contrast CLINICAL HISTORY: Reason for exam: BARBOUR, nausea. TECHNIQUE: Axial computed tomography images of the head/brain without intravenous contrast. CTDI is 37 mGy and DLP is 1576 mGy-cm. Automated exposure control was utilized for the study. A dose lowering technique was utilized adhering to the principles of ALARA. COMPARISON: MRI 09/17/2023 FINDINGS: Brain: No intracranial hemorrhage, mass-effect, or cerebral edema. Global parenchymal atrophy. Periventricular and subcortical low attenuation which is nonspecific but favored to represent chronic microvascular ischemic changes. Ventricles: Unremarkable. Bones/joints: Unremarkable. No fracture. Soft tissues: Unremarkable. Sinuses: No acute sinusitis. Mastoid air cells: Unremarkable as visualized. IMPRESSION: 1. No acute intracranial abnormality. Electronically signed by: Immanuel Browne MD 08/01/24 21:28 PM Abdomen/Pelvis CT 08/01/24 18:58 Exam(s): CT ABDOMEN + PELVIS Without Contrast EXAM: CT Abdomen and Pelvis Without Intravenous Contrast CLINICAL HISTORY: Reason for exam: vomiting. TECHNIQUE: Axial computed tomography images of the abdomen and pelvis without intravenous contrast. CTDI is 37.32 mGy and DLP is 624.41 mGy-cm. Automated exposure control was utilized for the study. A dose lowering technique was utilized adhering to the principles of ALARA. COMPARISON: No relevant prior studies available. FINDINGS: Lung bases: Atelectasis at the lung bases. Heart: Cardiomegaly. ABDOMEN: Liver: Unremarkable. Gallbladder and bile ducts: Unremarkable. Pancreas: Unremarkable. Spleen: Unremarkable. Adrenals: Unremarkable. Kidneys and ureters: A few cortical cysts in the kidneys. No ureteral stone or obstructive uropathy. Stomach and bowel: No bowel obstruction. Colonic diverticulosis without acute diverticulitis. PELVIS: Appendix: No findings to suggest acute appendicitis. Bladder: Unremarkable. Reproductive: Hysterectomy. ABDOMEN and PELVIS: Intraperitoneal space: Unremarkable. No free air. No significant fluid collection. Bones/joints: Osteopenia. Degenerative spondylosis. Soft tissues: Unremarkable. Vasculature: Severe aortobiiliac atherosclerotic calcifications. Lymph nodes: Unremarkable. IMPRESSION: 1. No bowel obstruction. Colonic diverticulosis without acute diverticulitis. 2. Severe aortobiiliac atherosclerotic calcifications. 3. A few cortical cysts in the kidneys. No ureteral stone or obstructive uropathy. 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
[2024-08-01] MEDS: SODIUM CHLORIDE 0.9% 1,000 ML IV STA (22:38)
[2024-08-02] MEDS ORDERED: NITROGLYCERIN SL 0.4 MG/TAB TAB SL PRN (00:33)
[2024-08-02] MEDS ORDERED: ACETAMINOPHEN 325 MG TAB PO PRN (00:33)
[2024-08-02] MEDS ORDERED: IPRATROPIUM BROMIDE NASAL SPRAY 0.06% 15ML NAE PRN (00:44)
--- NOTE | 2024-08-02 08:02 | Electrocardiogram Report ---
Test Reason : Blood Pressure : */* mmHG Vent. Rate : 87 BPM Atrial Rate : * BPM P-R Int : * ms QRS Dur : 152 ms QT Int : 424 ms P-R-T Axes : * 80 31 degrees QTcB Int : 510 ms Atrial fibrillation Right bundle branch block Abnormal ECG When compared with ECG of 09-Jul-2023 12:17, Criteria for Anterior infarct are no longer Present Confirmed by Mckay Santillan ([id number]) on 08/02/2024 8:02:05 AM Referred By: Confirmed By: Mckay Santillan
--- NOTE | 2024-08-02 08:36 | Electrocardiogram Report ---
Test Reason : Blood Pressure : */* mmHG Vent. Rate : 83 BPM Atrial Rate : 97 BPM P-R Int : * ms QRS Dur : 128 ms QT Int : 398 ms P-R-T Axes : * 76 24 degrees QTcB Int : 467 ms Atrial fibrillation Right bundle branch block Abnormal ECG When compared with ECG of 01-Aug-2024 18:11, No significant change Confirmed by Mckay Santillan ([id number]) on 08/02/2024 8:35:49 AM Referred By: REFERRED SELF Confirmed By: Mckay Santillan
--- NOTE | 2024-08-02 08:38 | Hospitalist Progress Note ---
Date of Service August 02, 2024 Assessment & Plan (1) Chest pain: Plan: Chest pain- The patient will be admitted to telemetry enzymes are negative, pending stress ehco did have recurrence of nausea and vomiting Initial troponin 6.5, with follow-up pending EKG with atrial fibrillation at 87 bpm, with right bundle branch block Most recent echocardiogram on 03/21/2022 with ejection fraction 55-60% Stress echocardiogram on 04/21/2022 was negative (2) Paroxysmal atrial fibrillation: Plan: Paroxysmal atrial fibrillation with hypertension, continue apixaban, diltiazem, losartan Plan Nausea and vomiting- Patient reports this does not happen until after she took the sublingual nitroglycerin x 2 Chest x-ray, CT scan head, CT scan abdomen and pelvis are all negative has multple drug sensitivities including stomach upset Headache- Also did not occur until after use of sublingual nitroglycerin x 2 Likely being aggravated by dehydration Place on NSS at 80 mL/h x 1 L Hyperthyroidism- Check TSH Continue methimazole Admission and Anticipated Discharge Date Admission Date: August 01, 2024 Subjective pt has resolution of chest pain but did have recurrent nausea and vomiting negative troponin and awaiting echo and stress echo read Physical Exam Physical Exam: alert and no complaints at my visit cardiac is regular lungs are clear abd is soft and non tender Results & Data Results & Data Vital Signs (Past 12 Hours) Vital Signs Temp Pulse Pulse Resp BP BP Pulse Ox 08/02/24 02:40 97.9 F 94 H 18 142/82 H 96 08/02/24 00:03 97 H 08/02/24 00:00 97.9 F 95 H 18 166/73 H 97 08/01/24 23:00 93 H 22 161/90 H 95 08/01/24 22:30 93 H 22 155/97 H 95 08/01/24 22:00 94 H 20 159/107 H 95 08/01/24 21:30 97 H 20 156/94 H 95 O2 Del Method 08/02/24 02:40 Room Air 08/02/24 00:03 08/02/24 00:00 Room Air 08/01/24 23:00 Room Air 08/01/24 22:30 Room Air 08/01/24 22:00 Room Air 08/01/24 21:30 Room Air Laboratory Results reviewed cbc reviewed chemistry PG Care Time/CCT Total # of Minutes Spent Total Time Spent with Patient: Total time spent is greater than 50% in coordination of care (as documented) at patient's floor/unit and/or counseling patient: Coding Level of Care Code 14386 SUB INP/OBS CARE 350MIN Diagnoses Chest pain R07.9 Chest pain type: unspecified Paroxysmal atrial fibrillation I48.0 (1) Chest pain Chest pain type: unspecified Qualified Code(s): R07.9 - Chest pain, unspecified
[2024-08-02 08:50] LABS: Basophils # (auto) 0.04 K/uL (0.00-0.20); Basophils % (auto) 0.8 %; Eosinophils # (auto) 0.01 K/uL (0.00-0.50); Eosinophils % (auto) 0.2 %; Hematocrit (blood only) 41.1 % (37.0-47.0); Hemoglobin 13.1 g/dl (12.0-16.0); Immature Granulocytes # (auto) 0.02 K/uL (0.01-0.20); Immature Granulocytes % (auto) 0.4 %; Lymphocytes % (auto) 25.2 %; Mean Corpuscular Hemoglobin 31.3 pg (25.0-34.0); Mean Corpuscular Hgb Conc 31.9 g/dL (32.0-36.0); Mean Corpuscular Volume 98.3 fL (80.0-100.0); Monocytes # (auto) 0.41 K/uL (0.11-0.59); Monocytes % (auto) 8.6 %; Neutrophils # (auto) 3.08 K/uL (1.40-6.50); Neutrophils % (auto) 64.8 %; Platelet Count 165 K/uL (130-400); RDW Coefficient of Variation 12.7 % (11.5-14.5); RDW Standard Deviation 46.1 fL (36.4-46.3); Red Blood Count 4.18 M/uL (4.20-5.40); White Blood Count 4.76 K/ul (4.8-10.8)
[2024-08-02] MEDS: dilTIAZem HCL 240 MG CAPCR PO SCH (08:58)
[2024-08-02] MEDS: LOSARTAN POTASSIUM 50 MG TAB PO SCH (08:58)
[2024-08-02] MEDS: methIMAzole 5 MG TABLET PO SCH (08:59)
[2024-08-02] MEDS: CHOLECALCIFEROL 25 MCG (1000 UNITS) TAB PO SCH (08:59)
[2024-08-02] MEDS: APIXABAN 5 MG TABLET PO SCH (08:59)
[2024-08-02] MEDS: CYANOCOBALAMIN (B-12) 500 MCG TABLET PO SCH (09:00)
[2024-08-02] MEDS: MAGNESIUM OXIDE 400 MG TAB PO SCH (09:00)
[2024-08-02 09:04] LABS: Albumin Level 3.7 gm/dl (3.4-5.0); BUN Creatinine Ratio 22.9 (10-20); Calcium 8.8 mg/dl (8.6-10.3); Creatinine Clr Calc Pharmacy 34.9 ml/min; Magnesium 1.8 mg/dl (1.7-2.4); Phosphorus 2.7 mg/dl (2.5-4.9)
[2024-08-02 09:10] LABS: Troponin I High Sensitivity 8.8 pg/ml (0-14)
[2024-08-02 09:19] LABS: Thyroid Stimulating Hormone 2.033 uIu/ml (0.300-4.500)
[2024-08-02] MEDS: ONDANSETRON INJ 2 MG/ML 2 ML VIAL ONE (13:57)
[2024-08-02] MEDS: PROMETHAZINE 12.5 MG/50.5 ML BAG IV ONE (14:25)
--- NOTE | 2024-08-02 17:13 | XCELERA ---
[id number] [id number]
--- NOTE | 2024-08-02 17:22 | Electrocardiogram Report ---
Test Reason : Blood Pressure : */* mmHG Vent. Rate : 86 BPM Atrial Rate : * BPM P-R Int : * ms QRS Dur : 138 ms QT Int : 404 ms P-R-T Axes : * 91 62 degrees QTcB Int : 483 ms Atrial fibrillation Right bundle branch block Abnormal ECG When compared with ECG of 02-Aug-2024 04:54, No significant change Confirmed by Mckay Santillan ([id number]) on 08/02/2024 5:22:36 PM Referred By: REFERRED SELF Confirmed By: Mckay Santillan
[2024-08-02] MEDS: DESMOPRESSIN ACETATE 0.1 MG TAB PO SCH (21:04)
[2024-08-03 07:57] VITALS: RESP 18
[2024-08-03 08:13] LABS: Basophils # (auto) 0.05 K/uL (0.00-0.20); Basophils % (auto) 1.2 %; Eosinophils # (auto) 0.03 K/uL (0.00-0.50); Eosinophils % (auto) 0.7 %; Hemoglobin 13.7 g/dl (12.0-16.0); Lymphocytes # (auto) 1.16 K/uL (1.20-3.40); Lymphocytes % (auto) 27.8 %; Mean Corpuscular Hemoglobin 31.9 pg (25.0-34.0); Mean Corpuscular Hgb Conc 32.6 g/dL (32.0-36.0); Mean Corpuscular Volume 97.9 fL (80.0-100.0); Mean Platelet Volume 10.7 fL (9.4-12.4); Monocytes # (auto) 0.36 K/uL (0.11-0.59); Monocytes % (auto) 8.6 %; Neutrophils # (auto) 2.58 K/uL (1.40-6.50); Neutrophils % (auto) 61.7 %; Platelet Count 167 K/uL (130-400); RDW Coefficient of Variation 12.9 % (11.5-14.5); RDW Standard Deviation 46.2 fL (36.4-46.3); Red Blood Count 4.29 M/uL (4.20-5.40); White Blood Count 4.18 K/ul (4.8-10.8)
--- NOTE | 2024-08-03 08:21 | Electrocardiogram Report ---
Test Reason : Blood Pressure : */* mmHG Vent. Rate : 75 BPM Atrial Rate : 208 BPM P-R Int : * ms QRS Dur : 134 ms QT Int : 412 ms P-R-T Axes : * 82 40 degrees QTcB Int : 460 ms Atrial fibrillation Right bundle branch block Abnormal ECG When compared with ECG of 02-Aug-2024 14:06, No significant change was found Confirmed by Mckay Santillan ([id number]) on 08/03/2024 8:20:31 AM Referred By: REFERRED SELF Confirmed By: Mckay Santillan
[2024-08-03 08:37] LABS: Albumin Level 3.4 gm/dl (3.4-5.0); BUN Creatinine Ratio 21.7 (10-20); Calcium 8.8 mg/dl (8.6-10.3); Creatinine Clr Calc Pharmacy 41.7 ml/min; Phosphorus 1.7 mg/dl (2.5-4.9); Potassium 4.1 mmol/L (3.5-5.1)
[2024-08-03] MEDS ORDERED: POTASSIUM PHOS 3 MMOL/1 ML INFUSION IV STA (09:00)
--- NOTE | 2024-08-03 09:30 | Gastrointestinal Consultation ---
Date of Consultation August 03, 2024 Assessment & Plan (1) Nausea & vomiting: Plan Patient is an 88 year old female admitted with chest pain with history of A fib on eliquis. GI consulted for nausea and vomiting. Patient tells me that she feels her symptoms are secondary to dizziness. she has never had an EGD in the past. Case was discussed with Dr. Bhat. - start protonix 40mg po bid. - I discussed setting up an EGD for the patient to further evaluate symptoms but she tells me she does not want to pursue this at this time. she prefers to monitor how she does with addition of PPI therapy. - will start her on clear liquids to see how she tolerates this. - further recommendations to follow, see Dr. Bhat's note. Supervising Physician Co-Signing Physician Notes I examined the patient and reviewed patient's chart , laboratory data and imaging studies. I agree with with assessment and plan of care as suggested by advanced practice provider. Nausea and vomiting of 2 days duration. Symptoms have resolved. Likely gastroenteritis. Will sign off and see as needed. History of Present Illness Reason for Consultation: nausea/vomiting Requesting Physician: Main Dobbs MD Attending Physician: Main Dobbs MD History of Present Illness Patient is an 88 year old female with a past medical history of a small bowel obstruction, urinary retention, urinary incontinence, aortic insufficiency, hyperparathyroidism, migraine, hypertension, asthma, right bundle branch block, and paroxysmal atrial fibrillation on eliquis. She presented to the ED on 08/01 with complaints of sudden chest pain, nausea, and vomiting that came on while vacuuming. She tells me that the nausea and vomiting seems to come in waves and seems related to when she feels dizzy. She has no current nausea or emesis, but tells me she had some yesterday during cardiac testing. she feels that the nausea/vomiting is triggered by the dizziness. she denies changes in bowel habits, rectal bleeding, or melena. she tells me she has never had an EGD. Her last colonoscopy was in 2010. 08/03/24 wbc 4.18, hgb 13.7, hct 42, plts 167. BMP unremarkable except chloride 109. 08/01/24 CT A/P - No bowel obstruction. Colonic diverticulosis without acute diverticulitis. Severe aortobiiliac atherosclerotic calcifications. A few cortical cysts in the kidneys. No ureteral stone or obstructive uropathy. Allergies Allergy/AdvReac Type Severity Reaction Status Date / Time amoxicillin Allergy Unknown RASH Verified 06/28/24 11:28 clavulanic acid Allergy Unknown RASH Verified 06/28/24 11:28 clindamycin Allergy Unknown RASH Verified 06/28/24 11:28 Sulfa (Sulfonamide Allergy Unknown RASH Verified 06/28/24 11:28 Antibiotics) cephalexin Allergy Unknown Verified 06/28/24 11:28 doxycycline Allergy Unknown Verified 06/28/24 11:28 meperidine [From Demerol] Allergy Unknown Verified 06/28/24 11:28 pantoprazole AdvReac Intermediate Vomiting Verified 06/28/24 11:28 benzonatate AdvReac Unknown SICK IN Verified 06/28/24 11:28 STOMACH codeine AdvReac Unknown SICK IN Verified 06/28/24 11:28 STOMACH levofloxacin AdvReac Unknown SICK IN Verified 06/28/24 11:28 STOMACH Home Medications Medication Instructions Recorded Confirmed Type mecobalamin (vitamin B12) 1,000 1,000 mcg PO DAILY #30 tabs 02/11/21 08/01/24 Rx mcg chewable tablet cholecalciferol (vitamin D3) 50 50 mcg PO DAILY #30 caps 02/12/22 08/01/24 Rx mcg (2,000 unit) capsule desmopressin 0.1 mg tablet 0.1 mg PO QPM 03/20/22 08/01/24 History magnesium 250 mg tablet 250 mg PO DAILY #30 tabs 03/21/22 08/01/24 Rx nitroglycerin 0.3 mg sublingual 0.3 mg sublingual Q5M PRN chest 05/26/22 08/01/24 Rx tablet pain #30 tabs apixaban 5 mg tablet (Eliquis) 5 mg PO BID #180 tabs 11/09/23 08/01/24 Rx denosumab 60 mg/mL subcutaneous 60 mg subcut .COMPLEX #1 mL 03/28/24 08/01/24 Rx syringe (Prolia) ipratropium bromide 21 mcg (0.03 2 spray intranasal TID PRN nasal 05/12/24 08/01/24 Rx %) nasal spray drainage. #90 mL methimazole 5 mg tablet 5 mg PO DAILY #90 tabs 05/20/24 08/01/24 Rx losartan 100 mg tablet 100 mg PO DAILY #90 tabs 05/25/24 08/01/24 Rx diltiazem HCl 240 mg 240 mg PO DAILY #90 caps 07/06/24 08/01/24 Rx capsule,extended release 24 hr pantoprazole 40 mg tablet,delayed 40 mg PO BID #60 tabs 08/03/24 Rx release Patient History Medical History ZHANE (acute kidney injury) Chest pressure Hyperthyroidism Asthma Atrial fibrillation Hypertension Bowel obstruction (2014) Surgical History H/O dilation and curettage H/O exploratory laparotomy History of colonoscopy History of cataract surgery History of tonsillectomy History of bowel resection History of appendectomy History of hysterectomy Family History Mother Breast cancer Unknown Hypertension Brother Cardiac disorder Denies family history of Ovarian cancer Prostate cancer Myocardial infarction Colorectal cancer Social History Smoking Status: Never smoker Second Hand Exposure: No; Do You Dip or Chew Tobacco: No; Hx Alcohol Use: No Hx Substance Use: No Preferred Language: Slovak Communication Ability: Effective Visual Impairment: No Limitations Hearing Ability: Hard of Hearing Building Architectural Designer Required: No Beliefs That Will Affect Care: None marital status: Current Living Situation: Spouse current occupational status: retired How many Children do You have: 2 Feels Safe at Home: Yes Childhood Exposure to Second-Hand Smoke: No Diet: regular during the past year weight has: remained stable Dental Care, Regularly: No Physical Activity Frequency: Daily Seatbelt Use: always Sunscreen Use: Yes Assistive Devices: Denture - Upper and Denture - Lower Review of Systems Review of Systems: All systems reviewed & are unremarkable except as noted in HPI & below Physical Exam Constitutional: WD/WN, vitals as above Respiratory: normal respiratory effort, lungs clear to auscultation Cardiovascular: Rate/Rhythm: regular rate and regular rhythm Gastrointestinal (Abdomen): normal bowel sounds, soft, nontender, no hepatosplenomegaly Psychiatric: Orientation: alert and oriented x 3 Affect: euthymic affect Results & Data Vital Signs (Past 12 Hours) Vital Signs Temp Pulse Pulse Resp BP Pulse Ox O2 Del Method 08/03/24 07:56 98.1 F 84 18 138/73 93 Room Air 08/03/24 07:26 82 08/03/24 03:00 98.2 F 82 16 158/79 H 90 Room Air 08/02/24 23:03 98.2 F 77 18 138/66 95 Room Air Coding Level of Care Code 16512 INT INP/OBS CARE 2/55MIN Diagnoses Nausea & vomiting R11.2 Vomiting type: unspecified (1) Nausea & vomiting Vomiting type: unspecified Qualified Code(s): R11.2 - Nausea with vomiting, unspecified
[2024-08-03] MEDS: POTASSIUM PHOSPHATE 9 MMOL in SODIUM CHLORIDE 0.9% 250 ML IV ONE (09:50)
[2024-08-03 11:03] VITALS: TEMP 97.5; O2SAT 94
[2024-08-03] MEDS: PANTOprazole 40 MG TAB PO SCH (11:03)
[2024-08-03 13:57] VITALS: BP 168/79; PULSE 79
--- NOTE | 2024-08-03 14:01 | Discharge Summary ---
Date of Service August 03, 2024 Admission HPI Per Admitting Provider The patient is an 88-year-old female with a past medical history including small bowel obstruction, urinary retention, urinary incontinence, aortic insufficiency, hyperparathyroidism, migraine, hypertension, asthma, right bundle branch block, and paroxysmal atrial fibrillation. En route to the emergency department, she received a milligrams of Zofran from EMS without much improvement. In the emergency department she received Tylenol 1 g IV, Zofran 4 mg IV and Reglan 5 mg IV. At the time of my examination, the symptoms of nausea and vomiting had resolved, but the patient still had some headache, but had imp roved. The patient was somewhat lethargic and sedated administration of metoclopramide. She reports that the chest tightness that she had experienced, that caused her to use nitrous nitroglycerin sublinguals., has also since resolved Specialty Data Hospitalist Discharge diagnosis: 1. Atypical chest pain 2. Intractable n/v Discharge exam: Vital Signs Temp Pulse Pulse Pulse Resp BP Pulse Ox 08/03/24 11:02 36.4 C L 75 18 163/91 H 94 08/03/24 07:56 36.7 C 84 18 138/73 93 08/03/24 07:26 82 08/03/24 03:00 36.8 C 82 16 158/79 H 90 08/02/24 23:03 36.8 C 77 18 138/66 95 08/02/24 20:00 36.8 C 83 20 153/82 H 93 08/02/24 16:19 36.6 C 79 18 132/77 9 L 08/02/24 14:13 104 H O2 Del Method 08/03/24 11:02 Room Air 08/03/24 07:56 Room Air 08/03/24 07:26 08/03/24 03:00 Room Air 08/02/24 23:03 Room Air 08/02/24 20:00 Room Air 08/02/24 16:19 Room Air 08/02/24 14:13 GENERAL: 88 yo well-nourished elderly F. A&Ox3. NAD. LUNGS: Clear to auscultation bilaterally. No W/R/R. CARDIOVASCULAR: Regular rate and rhythm. ABDOMEN: Soft, NT/ND. No palpable masses. BS normoactive x 4 quad. EXTREMITIES: No edema. Non-tender. Peripheral pulses +2/4. SKIN: Warm, dry, intact. No rashes or lesions. Discharge Data Consultations 08/01/24 21:48 ED Decision to Admit Stat 08/02/24 17:20 Consult Gastroenterology Routine Procedures Performed Chest X-Ray 08/01/24 18:20 EXAM: Radiograph of the Chest 1 View INDICATION: Chest pain. TECHNIQUE: Frontal view of the chest. COMPARISON: 07/09/2023 FINDINGS: Lungs and pleural spaces: Stable hyperinflation and mild scattered basilar parenchymal and generalized interstitial scarring. No consolidation or pulmonary edema. No pleural effusion or pneumothorax. Heart: Stable cardiomegaly. Mediastinum: Normal contour. Bones/joints: No fracture, erosion or dislocation. Soft tissues: No abnormality noted. No radiopaque foreign body noted. Upper abdomen: No abnormality noted. IMPRESSION: Stable chronic changes. No acute disease. ACT 112: Negative or not required by law. Electronically signed by Brittnee Sanchez 08-01-2024 6:[address] 08/01/24 18:52 Exam(s): CT HEAD Without Contrast EXAM: CT Head Without Intravenous Contrast CLINICAL HISTORY: Reason for exam: BARBOUR, nausea. TECHNIQUE: Axial computed tomography images of the head/brain without intravenous contrast. CTDI is 37 mGy and DLP is 1576 mGy-cm. Automated exposure control was utilized for the study. A dose lowering technique was utilized adhering to the principles of ALARA. COMPARISON: MRI 09/17/2023 FINDINGS: Brain: No intracranial hemorrhage, mass-effect, or cerebral edema. Global parenchymal atrophy. Periventricular and subcortical low attenuation which is nonspecific but favored to represent chronic microvascular ischemic changes. Ventricles: Unremarkable. Bones/joints: Unremarkable. No fracture. Soft tissues: Unremarkable. Sinuses: No acute sinusitis. Mastoid air cells: Unremarkable as visualized. IMPRESSION: 1. No acute intracranial abnormality. Electronically signed by: Immanuel Browne MD 08/01/24 21:28 PM Abdomen/Pelvis CT 08/01/24 18:58 Exam(s): CT ABDOMEN + PELVIS Without Contrast EXAM: CT Abdomen and Pelvis Without Intravenous Contrast CLINICAL HISTORY: Reason for exam: vomiting. TECHNIQUE: Axial computed tomography images of the abdomen and pelvis without intravenous contrast. CTDI is 37.32 mGy and DLP is 624.41 mGy-cm. Automated exposure control was utilized for the study. A dose lowering technique was utilized adhering to the principles of ALARA. COMPARISON: No relevant prior studies available. FINDINGS: Lung bases: Atelectasis at the lung bases. Heart: Cardiomegaly. ABDOMEN: Liver: Unremarkable. Gallbladder and bile ducts: Unremarkable. Pancreas: Unremarkable. Spleen: Unremarkable. Adrenals: Unremarkable. Kidneys and ureters: A few cortical cysts in the kidneys. No ureteral stone or obstructive uropathy. Stomach and bowel: No bowel obstruction. Colonic diverticulosis without acute diverticulitis. PELVIS: Appendix: No findings to suggest acute appendicitis. Bladder: Unremarkable. Reproductive: Hysterectomy. ABDOMEN and PELVIS: Intraperitoneal space: Unremarkable. No free air. No significant fluid collection. Bones/joints: Osteopenia. Degenerative spondylosis. Soft tissues: Unremarkable. Vasculature: Severe aortobiiliac atherosclerotic calcifications. Lymph nodes: Unremarkable. IMPRESSION: 1. No bowel obstruction. Colonic diverticulosis without acute diverticulitis. 2. Severe aortobiiliac atherosclerotic calcifications. 3. A few cortical cysts in the kidneys. No ureteral stone or obstructive uropathy. Electronically signed by: Immanuel Browne MD 08/01/24 21:26 PM Hospital Course (1) Chest pain: Chest pain- admitted to telemetry enzymes are negative, pending stress ehco did have recurrence of nausea and vomiting Initial troponin 6.5, with f/u 8.8 EKG with atrial fibrillation at 87 bpm, with right bundle branch block Most recent echocardiogram on 03/21/2022 with ejection fraction 55-60% Stress echocardiogram on 04/21/2022 was negative Stress test attempted and was unable to be completed due to developing n/v, but no EKG changes were noted during episodes of n/v therefore not felt to represent angina equivalent (2) Paroxysmal atrial fibrillation: Paroxysmal atrial fibrillation with hypertension, continue apixaban, diltiazem, losartan Rates controlled Plan Nausea and vomiting- Patient reports this does not happen until after she took the sublingual nitroglycerin x 2 Chest x-ray, CT scan head, CT scan abdomen and pelvis are all negative has multple drug sensitivities including stomach upset GI consulted, appreciate input. Tolerated CLD, no recurrence of n/v. GI recommended adding PPI 40mg BID. EGD discussed but pt declined. Will f/u with PCP and discuss referral as outpatient to GI. Headache- Also did not occur until after use of sublingual nitroglycerin x 2 Likely being aggravated by dehydration Received NSS at 80 mL/h x 1 L Hyperthyroidism- Check TSH Continue methimazole Patient is medically and hemodynamically stable for discharge. Advised f/u with PCP within 1 week. Prescription for protonix has been sent to her pharmacy. Above plan of care has been d/w Dr. Dobbs who is in agreement. Total time for discharge: 35 minutes Coding Level of Care Code 51161 INP/OBS DISCH >30 MIN Diagnoses Chest pain R07.9 Chest pain type: unspecified Paroxysmal atrial fibrillation I48.0
== END 2024-08-03 14:15 | disposition home or self-care (01) ==
LOC: 2S 18:02 → ED 18:02 → SUATTDRO 22:22 → 2S 23:10